=== PATIENT | male | born 1960 | race Caucasian/White ===

== ENCOUNTER 2017-11-25 10:38 | Day surgery (SDC) | payer MEDICAID, SELFPAY ==
--- NOTE | 2017-11-24 19:49 | PCM.HP.BLA ---
History and Physical Date of Admission: 11/25/17 HISTORY OF PRESENT ILLNESS 57 year old man presents for evaluation for a TBSE. He is concerned about a lesion on his right lateral canthal area that has increased in size over the last several months and has developed irregular borders and has become raised in configuration. Denies any fever. Denies any trauma. Denies any bleeding.Denies any recent infection. He has also noted a nasal polyp on his left lateral nasal alar rim that has been enlarging in size as well and is irritating. There has been no bleeding. He presents at this time for further evaluation and treatment. PAST MEDICAL HISTORY Lumbar back pain. Urinary retention due to radiculopathy from his lower back. Neurogenic bladder. Hypertension. Vitamin D deficiency. esophageal varices. Liver cirrhosis. GERD. Anemia. Rosacea. Rhinophyma. PAST SURGICAL HISTORY EGD. Esophageal variceal banding. MEDICATIONS Oxycodone. Diprosone. Mirapex. Ferrous sulfate. Protonix. Cardizem CD. Potassium chloride ER. Flomax. Rabia. Ventolin. Lactulose. Vitamin D. Flagyl topical gel. Xifaxan. Pramipexole. ALLERGIES NSAIDS. Tylenol. Aspirin. Lamisil. SOCIAL HISTORY Patient is a smoker. Patient does not drink alcohol. He has cirrhosis. FAMILY HISTORY Positive for skin cancer. Alcoholism -Father. Angina - Grandmother. Blood clots - Mother. Breast cancer - Grandmother, Sister. Diabetes - Grandmother. Hypertension - Father. REVIEW OF SYSTEMS General - Denies fever, fatigue, and weight loss. ENT - Denies nasal congestion and sore throat. Eyes - Denies glaucoma. Denies cataracts. Endocrine - Has cold intolerance. Skin - Has enlarging lesions right lateral canthal area and left lateral nasal alar rim. Has positive family history of skin cancer. Musculoskeletal - Has joint pain, joint stiffness, weakness of muscles and joints, back pain. Denies arthritis. Neuro - Denies headaches. Cardiovascular - Denies chest pain, shortness of breath with exertion. Psych - Denies anxiety and depression. Respiratory - Denies cough and shortness of breath. Patient is a smoker. Gastrointestinal - Denies nausea, vomiting, diarrhea, or constipation. Hematologic - Has anemia. Has bleeding and abnormal bruising. Genitourinary - Denies urinary frequency and hematuria. Has incontinence. PHYSICAL EXAMINATION General - Alert and oriented. HEENT - PERRL. EOMI. Throat is clear. On the right lateral canthal area is an erythematous nodular lesion that measures 2 x 1.5 cm. Has irregular borders. No ulceration. Lesion is nontender. On the left lateral nasal alar rim is a 3 mm nasal polyp. No ulceration. Lesion is nontender. Has rhinophyma. No evidence of infection. Neck - Supple and nontender. No cervical adenopathy. No suspicious lesions noted. Lungs - Clear to auscultation. Heart - Regular rate and rhythm. Abdomen - No suspicious lesions noted. Extremities - FROM. No suspicious lesions noted. No radial pulses. Neuro - CN II - XII grossly intact. ASSESSMENT 1. 2 cm lesion right lateral canthal area. 2. 3 mm nasal polyp left lateral nasal alar rim. 3. Family history of skin cancer. 4. Rhinophyma. 5. Smoker. PLAN Recommend excision of this lesion right lateral canthal area and send it to Pathology for analysis to rule out carcinoma. If carcinoma is present, then further excision will be done with skin grafting possible skin flap reconstruction. Will also excise the nasal polyp left lateral nasal alar rim and send it to Pathology for analysis to rule out carcinoma. If carcinoma is present then further excision will be done with skin graft or mucosal flap reconstruction. After healing has occurred, can then address the rhinophyma by surgical planing and CO2 laser ablation. Would send some of the tissue to Pathology for analysis to rule out carcinoma. Surgery will be done under local anesthesia and IV sedation on an outpatient basis. The rhinophyma surgery would be done under general anesthesia on an outpatient basis. Patient was informed of the risks and complications of the procedure including alternatives to surgery. These were discussed with him personally. He voices understanding and wishes to proceed. Some of the risks and complications were included in a form from the [place] [employer]. Encouraged the patient to stop smoking as it may have deleterious effects on wound healing.
--- NOTE | 2017-11-25 | POL_PTH ---
PATIENT: JOSÉ MCDOWELL LOC: [facility] [place] U#:[id number] AGE/SX: 57/M ROOM: RE11/25/[address]: Dr. Tejinder Guthrie MD : 1960 BED: DIS: 11/25/2017 SPEC #: [id number] RECD: 11/25/17 14:56 STATUS: MATT NINO #: [id number] JADA: 11/25/17 00:[address]: Tejinder Guthrie DEPT: SURGICAL PATHOLOGY RECD BY: Marissa Lawrence ENTERED: 11/25/17 15:37 SP TYPE: Polyp OTHR DR: Dr. Megan Mai, DO Tissues: A - POLYP B - Skin of eyelid, NOS Procedures: Surgery Specimen Level III Surgery Specimen Level IV Frozen (no charge) HEADER OPERATION: Excision, lesion, possible skin flap/skin graft, frozen section PRE-OP DIAGNOSIS: 2 cm lesion right lateral canthal area; 3 mm nasal polyp left lateral nasal alar rim TISSUE SUBMITTED: A ? Nasal polyp left lateral nose alar rim ? sent for FS 1443, B ? Right lateral canthal area lesion FROZEN SECTION DIAGNOSIS A. Nasal polyp left lateral nasal alar rim, biopsy: Negative for malignancy. Hyperkeratosis. :marissa 11/25/17 MICROSCOPIC DIAGNOSIS A. Nasal polyp, left lateral nose alar rim, biopsy: Verrucous keratosis. Negative for malignancy. B. Right lateral canthal area lesion, biopsy: Epidermal inclusion cysts (three pieces). PATRICK:marissa 11/27/17 MICROSCOPIC DESCRIPTION Slides are reviewed. GROSS DESCRIPTION A ? Received fresh for frozen section diagnosis labeled with the patient's name is a specimen designated nasal polyp left lateral nasal alar rim. The specimen consists of a piece of magallanes-white skin measuring 0.2 x 0.2 x 0.1 cm. The entire specimen is submitted for frozen section diagnosis in one cassette. / PATRICK:marissa 11/25/17 B - Received in fixative is one container labeled with the patient's name and designated right lateral canthal area lesion. The specimen consists of three irregular fragments of light magallanes skin with attached magallanes-white tissue. The smaller fragment measures 1 cm and the largest fragment measures 2 cm. All three fragments are inked with different inks, bisected and totally submitted in two cassettes. / AM:marissa 11/26/17 TC:5 CPT: 68510, 91208, 69429
[2017-11-25 11:01] VITALS: BP 149/73; PULSE 104; RESP 16; TEMP 36.7; O2SAT 95; BMI 26.6
[2017-11-25] MEDS: Mupirocin Ointment 22gm Tube 1 APPLIC (14:15)
[2017-11-25] MEDS: Clindamycin 900 MG/50 ML BAG 75 MG IV (14:21)
--- NOTE | 2017-11-25 15:35 | OP.PN_ITS ---
Immediate Post-Op Note Date of Procedure: 11/25/17 Primary Surgeon/Physician: Tejinder Guthrie e learning specialist: None Pre-Operative Diagnosis: 1. 2 cm lesion right lateral canthal area. 2. 3 mm nasal polyp vestibular area left lateral nasal alar rim. 3. Family history of skin cancer. 4. Rhinophyma. 5. Smoker. Post-Operative Diagnosis: 1. 2 cm cystic lesions cluster right lateral canthal area. 2. 3 mm nasal polyp vestibular area left lateral nasal alar rim. 3. Family history of skin cancer. 4. Rhinophyma. 5. Smoker. Surgery/Procedure Performed:: 1. Excision 2 cm cystic lesions cluster right lateral canthal area with FTSG reconstruction from the right neck (3 cm2). 2. Excision 3 mm nasal polyp vestibular area left lateral nasal alar rim. Description of Surgical Findings:: 57 year old man presents for evaluation for a TBSE. He is concerned about a lesion on his right lateral canthal area that has increased in size over the last several months and has developed irregular borders and has become raised in configuration. Denies any fever. Denies any trauma. Denies any bleeding.Denies any recent infection. He has also noted a nasal polyp on his left lateral nasal alar rim that has been enlarging in size as well and is irritating. There has been no bleeding. The nasal polyp vestibular area left lateral nasal alar rim was excised and sent to pathology as a frozen section. Frozen section showed the lesion was benign without evidence of malignancy. Today the patient underwent excision 2 cm cystic lesions cluster right lateral canthal area with FTSG reconstruction from the right neck (3 cm2) and excision 3 mm nasal polyp vestibular area left lateral nasal alar rim. Estimated Blood Loss: 5 ml. Specimen's removed: 1. Nasal polyp vestibular area left lateral nasal alar rim to Pathology as a frozen section. 2. Cystic lesions cluster right lateral canthal area to Pathology. Drains: None. Type of Anesthesia:: Local MAC - Xylocaine with epinephrine and IV sedation. - Admit VTE Documentation VTE Present on Admission: No VTE Mechan Device Prophylaxis: SCD's VTE Pharm Prophylaxis ordered?: No
[2017-11-25 15:38] VITALS: BP 132/78; BP 149/73; PULSE 98; RESP 16; TEMP 37.3; O2SAT 90
[2017-11-25 15:45] VITALS: BP 131/85; BP 149/73; PULSE 94; RESP 16; O2SAT 91
--- NOTE | 2017-11-25 15:45 | PCM.DC ---
You will use the following diet at home:: No restrictions Discharge Activity: May Not Drive, May Shower - from the neck down after 2 days. May shower in (days): 2 - try to keep skin graft rightr lateral canthal area as dry as possible. May resume sexual activity in: 10-14 days Ice area for (Minutes): 5 - for facial swelling. Weight Bearing Status: Weight bearing as tolerated Lifting Restrictions: 10 lbs. Keep extremity elevated above heart level: - - elevate head. Call your doctor if your incision/area has: Continuous Slow Oozing, Sudden Increased Bleeding, Increased Pain/ Swelling, Increased Redness, Foul Smelling Discharge, Swelling at the incision site Call your doctor if you observe: Fever of 101 or Higher, Coldness, Increased Pain, Shortness of breath, Chest pain, Increased palpitations (irregular heartbeat) Allergies/Adverse Reactions: Allergies acetaminophen [From Tylenol] Adverse Reaction (Intermediate, Verified 11/18/17 13:43) GI discomfort Medications to take at Discharge albuterol 90 mcg/actuation aerosol inhaler 90 mcg INHALATION PRN PRN 10/29/17 cholecalciferol (vitamin D3) 50,000 unit capsule 50,000 unit PO QWEEK 10/29/17 diltiazem CD 240 mg capsule,extended release 24 hr 240 mg PO QDAY 10/29/17 ferrous sulfate 325 mg (65 mg iron) tablet,delayed release 325 mg PO BID tab 10/29/17 fexofenadine 60 mg tablet 60 mg PO BID 10/29/17 lactulose 20 gram oral packet 20 g PO BID 10/29/17 metronidazole 0.75 % topical gel 1 applic TOPICAL Q12H 10/29/[address] 40 mg granules delayed-release for susp in packet 40 mg PO QDAY 10/29/17 potassium chloride ER 20 mEq tablet,extended release(part/cryst) 20 meq PO QDAY 10/29/17 pramipexole 0.125 mg tablet 0.125 mg PO QHS 10/29/17 rifaximin 550 mg tablet 550 mg PO BID 10/29/17 tamsulosin 0.4 mg capsule 0.4 mg PO QDAY 10/29/17 Clindamycin HCl [Cleocin] 300 mg PO TID 7 Days #21 cap 11/25/17 L. Acidophilus/Pectin, [place] [Acidophilus-Pectin [place]] 1 ea PO BID #20 tab 11/25/17 Oxycodone HCl/Acetaminophen [Percocet 5/325] 1 - 2 tab PO 4X/DAY PRN PRN 3 Days #20 tab 11/25/17 The following prescriptions were given: Oxycodone HCl/Acetaminophen [Percocet 5/325] 1 - 2 tab PO 4X/DAY PRN PRN 3 Days #20 tab PRN Reason: Pain L. Acidophilus/Pectin, [place] [Acidophilus-Pectin [place]] 1 ea PO BID #20 tab Clindamycin HCl [Cleocin] 300 mg PO TID 7 Days #21 cap Primary Care Physician: Megan Mai [Primary Care Provider] - Please Follow Up With: Tejinder Guthrie MD When: one week. call [phone] for appt. Proposed Discharge Date: 11/25/17
--- NOTE | 2017-11-25 15:49 | DCINST_ITS ---
You will use the following diet at home:: No restrictions Discharge Activity: May Not Drive, May Shower - from the neck down after 2 days. May shower in (days): 2 - try to keep skin graft rightr lateral canthal area as dry as possible. May resume sexual activity in: 10-14 days Ice area for (Minutes): 5 - for facial swelling. Weight Bearing Status: Weight bearing as tolerated Lifting Restrictions: 10 lbs. Keep extremity elevated above heart level: - - elevate head. Call your doctor if your incision/area has: Continuous Slow Oozing, Sudden Increased Bleeding, Increased Pain/ Swelling, Increased Redness, Foul Smelling Discharge, Swelling at the incision site Call your doctor if you observe: Fever of 101 or Higher, Coldness, Increased Pain, Shortness of breath, Chest pain, Increased palpitations (irregular heartbeat) Allergies/Adverse Reactions: Allergies acetaminophen [From Tylenol] Adverse Reaction (Intermediate, Verified 11/18/17 13:43) GI discomfort Medications to take at Discharge albuterol 90 mcg/actuation aerosol inhaler 90 mcg INHALATION PRN PRN 10/29/17 cholecalciferol (vitamin D3) 50,000 unit capsule 50,000 unit PO QWEEK 10/29/17 diltiazem CD 240 mg capsule,extended release 24 hr 240 mg PO QDAY 10/29/17 ferrous sulfate 325 mg (65 mg iron) tablet,delayed release 325 mg PO BID tab fexofenadine 60 mg tablet 60 mg PO BID 10/29/17 lactulose 20 gram oral packet 20 g PO BID 10/29/17 metronidazole 0.75 % topical gel 1 applic TOPICAL Q12H 10/29/[address] 40 mg granules delayed-release for susp in packet 40 mg PO QDAY 10/29/17 potassium chloride ER 20 mEq tablet,extended release(part/cryst) 20 meq PO QDAY 10/29/17 pramipexole 0.125 mg tablet 0.125 mg PO QHS 10/29/17 rifaximin 550 mg tablet 550 mg PO BID 10/29/17 tamsulosin 0.4 mg capsule 0.4 mg PO QDAY 10/29/17 Clindamycin HCl [Cleocin] 300 mg PO TID 7 Days #21 cap 11/25/17 L. Acidophilus/Pectin, [place] [Acidophilus-Pectin [place]] 1 ea PO BID #20 tab Oxycodone HCl/Acetaminophen [Percocet 5/325] 1 - 2 tab PO 4X/DAY PRN PRN 3 Days #20 tab 11/25/17 The following prescriptions were given: Oxycodone HCl/Acetaminophen [Percocet 5/325] 1 - 2 tab PO 4X/DAY PRN PRN 3 Days #20 tab PRN Reason: Pain L. Acidophilus/Pectin, [place] [Acidophilus-Pectin [place]] 1 ea PO BID #20 tab Clindamycin HCl [Cleocin] 300 mg PO TID 7 Days #21 cap Primary Care Physician: Megan Mai [Primary Care Provider] - Please Follow Up With: Tejinder Guthrie MD When: one week. call [phone] for appt. Proposed Discharge Date: 11/25/17
[2017-11-25 15:50] VITALS: BP 130/75; BP 149/73; PULSE 96; RESP 16; O2SAT 90
[2017-11-25 15:55] VITALS: BP 127/76; BP 149/73; PULSE 94; RESP 16; TEMP 37.5; O2SAT 92
[2017-11-25 16:07] VITALS: BP 149/73
--- NOTE | 2017-11-25 20:40 | PCM.OPRPT ---
Report of Operation Date of Procedure: 11/25/17 Pre-Operative Diagnosis: 1. 2 cm lesion right lateral canthal area. 2. 3 mm nasal polyp vestibular area left lateral nasal alar rim. 3. Family history of skin cancer. 4. Rhinophyma. 5. Smoker. Post-Operative Diagnosis: 1. 2 cm cystic lesions cluster right lateral canthal area. 2. 3 mm nasal polyp vestibular area left lateral nasal alar rim. 3. Family history of skin cancer. 4. Rhinophyma. 5. Smoker. Surgery/Procedure Performed:: 1. Excision 2 cm cystic lesions cluster right lateral canthal area with FTSG recosntruction from the right neck (3 cm2). 2. Excision 3 mm nasal polyp vestibular area left lateral nasal alar rim. Description of Surgical Findings:: 57 year old man presents for evaluation for a TBSE. He is concerned about a lesion on his right lateral canthal area that has increased in size over the last several months and has developed irregular borders and has become raised in configuration. Denies any fever. Denies any trauma. Denies any bleeding. Denies any recent infection. He has also noted a nasal polyp on his left lateral nasal alar rim that has been enlarging in size as well and is irritating. There has been no bleeding. Patient was informed of the risks and complications of the procedure including alternatives to surgery. These were discussed with him personally. He voices understanding and wishes to proceed. Some of the risks and complications were included in a form from the [place] [employer]. Encouraged the patient to stop smoking as it may have deleterious effects on wound healing. licensed mental health professional: None Type of Anesthesia:: Local MAC - Xylocaine with epinephrine and IV sedation. Specimen's removed: 1. Nasal polyp vestibular area left lateral nasal alar rim to Pathology as a frozen section. 2. Cystic lesions cluster right lateral canthal area to Pathology. Drains: None. Estimated Blood Loss (mL): 5 ml. Description of Procedure: Patient was taken to OR in supine position and was given IV sedation. His face and neck were prepped and draped in the usual fashion. SCD's were placed for DVT prophylaxis. Perioperative antibiotics were given intravenously. Using xylocaine with epinephrine, I infiltrated the lesion right lateral canthal area and nasal polyp vestibular area left lateral nasal alar rim. After waiting 5 minutes for the anesthetic to take effect, I started to excise the lesion on the right lateral canthal area as an intradermal excision since there was concern it was clinically consistent with a carcinoma. However during the beginning of the intradermal excision, it was clear this was a cystic lesions cluster so no frozen section was done. The cystic lesions cluster was then excised in a circular fashion into the subcutaneous tissue. The overlying skin was adherent to the cystic lesions cluster so it was excised as well. The cystic lesions cluster was sent to Pathology for analysis to rule out carcinoma. Hemostasis obtained with electrocautery. The size of the defect for the skin graft was 2 x 1.5 cm or 3 cm2. I infiltrated an area on the right neck for the skin graft. After waiting 5 minutes for the anesthetic to take effect, I made an elliptical excision in the right neck down into the subcutaneous tissue. The subcutaneous tissue was removed from the undersurface of the dermis thus fashioning a full thickness skin graft. The skin graft was placed in saline. I then excised the nasal polyp from the vestibular area left lateral nasal alar rim as a full thickness excision and sent the lesion to Pathology for analysis to rule out carcinoma. Frozen section showed the lesion was benign without evidence of malignancy. Hemostasis of the base of the wound was obtained with electrocautery. Antibiotic ointment was placed on the nasal wound. The full thickness skin graft was then placed in the right lateral canthal wound and secured to the skin edge with 5-0 Chromic simple interrupted sutures. 5-0 Chromic sutures were placed for central quilting stabilization. Antibiotic ointment was applied to the skin graft followed by xeroform gauze and a cotton ball soaked in saline and secured to the skin graft with 5-0 Nylon tie over stent suture dressing. Patient tolerated the procedure well and was sent to PACU in satisfactory condition. He will be sent home on antibiotics and pain medication. He will keep his head elevated during the initial postop period. He will followup in the office in a week for takedown of the skin graft dressing and for discussion of the pathology report and for removal of the donor incision sutures. Grafts/Implants Used: None. - Complications None. - Admit VTE Documentation VTE Present on Admission: No VTE Mechan Device Prophylaxis: SCD's VTE Pharm Prophylaxis ordered?: No
== END 2017-11-25 16:37 | disposition home or self-care (01) ==
LOC: SDC 10:39 → AC 10:40
PROVIDERS: Family Provider Family Medicine; PCP Family Medicine; Visit Provider Surgery
PROC: (CPT 11442; principal; 2017-11-25 12:05)
DX: H11.441 Conjunctival cysts, right eye (principal); J33.8 Other polyp of sinus; L98.8 Other specified disorders of the skin and subcutaneous tissue; F17.200 Nicotine dependence, unspecified, uncomplicated; L71.1 Rhinophyma; Z80.8 Family history of malignant neoplasm of other organs or systems; E55.9 Vitamin D deficiency, unspecified; N31.9 Neuromuscular dysfunction of bladder, unspecified; I10 Essential (primary) hypertension; J44.9 Chronic obstructive pulmonary disease, unspecified; G25.81 Restless legs syndrome; K74.60 Unspecified cirrhosis of liver; K21.9 Gastro-esophageal reflux disease without esophagitis; D64.9 Anemia, unspecified; Z79.899 Other long term (current) drug therapy; M54.16 Radiculopathy, lumbar region
CPT/HCPCS: 00300; 11442; 15260; 30115; 88304; 88305; J7120; J2405

== ENCOUNTER → 2017-12-18 18:12 | Outpatient (CLI) | payer MEDICAID, SELFPAY | PROVIDERS: Family Provider Family Medicine; PCP Family Medicine; Visit Provider Surgery | DX: T86.821 Skin graft (allograft) (autograft) failure (principal); D49.2 Neoplasm of unspecified behavior of bone, soft tissue, and skin; F17.200 Nicotine dependence, unspecified, uncomplicated; Z80.8 Family history of malignant neoplasm of other organs or systems | CPT/HCPCS: 87070; 87075; 87205 ==

== ENCOUNTER → 2019-05-21 10:42 | Outpatient (CLI) | payer MEDICARE, SELFPAY ==
--- NOTE | 2019-04-28 23:08 | PCM.HP.BLA ---
History and Physical Date of Admission: 04/29/19 HISTORY OF PRESENT ILLNESS 58 year old man presents with longstanding rhinophyma that has enlarged in size over the last several months. He has discomfort when he bumps his nose. Occasional bleeding can occur. He denies any fever. He denies any recent infection. He denies any breathing problems at the present time. He presents at this time for further evaluation and treatment. PAST MEDICAL HISTORY Anemia Back problem Gastroesophageal reflux disease without esophagitis History of blood transfusion Hypokalemia Leukopenia Multiple allergies Neurogenic bladder Panlobular emphysema Rosacea Secondary esophageal varices with bleeding Vitamin D deficiency Hypertension Verrucous keratosis left lateral nose alar rim Epidermal inclusion cysts right lateral canthal area PAST SURGICAL HISTORY EGD Esophageal variceal banding Excision 2 cm cystic lesions cluster right lateral canthal area with FTSG reconstruction from the right neck (3 cm2) and excision 3 mm nasal polyp vestibular area left lateral nasal alar rim - 11/25/18 ALLERGIES acetaminophen [From Tylenol] MEDICATIONS albuterol/actuation aerosol inhaler cholecalciferol (vitamin D3) diltiazem CD ferrous sulfate fexofenadine lactulose metronidazole 0.75 % topical gel pantoprazole DR potassium chloride ER pramipexole rifaximin tamsulosin FAMILY HISTORY Father - Alcoholism, Hypertension Grandmother - Angina at rest, Breast cancer, Diabetes Mother - Bleeding disorder Sister - Breast cancer SOCIAL HISTORY Smoking Status: Current every day smoker REVIEW OF SYSTEMS General - Denies fever, fatigue, and weight loss. ENT - Denies nasal congestion and sore throat. Eyes - Denies glaucoma. Denies cataracts. Endocrine - Has cold intolerance. Skin - Has rhinophyma. Has positive family history of skin cancer. Musculoskeletal - Has joint pain, joint stiffness, weakness of muscles and joints, back pain. Denies arthritis. Neuro - Denies headaches. Cardiovascular - Denies chest pain, shortness of breath with exertion. Psych - Denies anxiety and depression. Respiratory - Denies cough and shortness of breath. Patient is a smoker. Gastrointestinal - Denies nausea, vomiting, diarrhea, or constipation. Hematologic - Has anemia. Has bleeding and abnormal bruising. Genitourinary - Denies urinary frequency and hematuria. Has incontinence. PHYSICAL EXAMINATION General - Alert and oriented. HEENT - PERRL. EOMI. Throat is clear. Has rhinophyma. No evidence of infection. Involves mostly the nasal dorsum extending to the tip and columella. There is more mild rhinophyma laterally on the nasal ala. Comes close to the alar margin. There are multiple nodularities. No evidence of infection at this time. No ulceration. His nose is nontender. No other suspicious lesions noted. Neck - Supple and nontender. No cervical adenopathy. No suspicious lesions noted. No suspicious lesions noted. Lungs - Clear to auscultation. Heart - Regular rate and rhythm. Abdomen - No suspicious lesions noted. Extremities - FROM. No suspicious lesions noted. No radial pulses. No suspicious lesions noted. Neuro - CN II - XII grossly intact. ASSESSMENT 1. Rhinophyma. 2. Family history of skin cancer. 3. Smoker. PLAN Recommend excision of his rhinophyma with surgical planing the skin of his nose. Sometimes rhinophyma can hide a focus of skin cancer, so it will be sent to Pathology for analysis to rule out carcinoma. If carcinoma is present, then full thickness excision would be needed with skin graft reconstruction. If there are areas on his nose that necessitate full thickness surgical planing, then skin grafting may be necessary depending on the size of the full thickness defect. If it is small, local wound care will heal the area. Also at the time of surgery, CO2 laser ablation will be needed to help with hemostasis and to help with taking care of the deeper areas of rhinophyma in an attempt to minimize full thickness wounds. Postop will apply Xeroform gauze followed by antibiotic ointment. Initial dressing changes would be done in the office because of the risk of bleeding with the dressing changes. Once epithelialization occurs, then the dressing changes can be done at home without Xeroform gauze and just with antibiotic ointment followed by skin lotion such as Aquaphor until fully healed. Any scar contractures that form during the healing process, further evaluation can be done in the future for excision with skin grafting of those areas. Besides the risk of obscuring a skin cancer, with rhinophyma there is increased risk of bleeding and ulceration and infection. So excision of rhinophyma with surgical planing and CO2 laser ablation is warranted to minimize these risks. Surgery will be done under general anesthesia with a surgical observation overnight stay in the hospital. Patient was informed of the risks and complications of the procedure including alternatives to surgery. These were discussed with him personally. He voices understanding and wishes to proceed. Some of the risks and complications were included in a form from the [place] [employer]. Encouraged the patient to stop smoking as it may have deleterious effects on wound healing.
--- NOTE | 2019-05-11 11:27 | RAD_ITS ---
STUDY: X-RAY CHEST REASON FOR EXAM: Male, 58 years old. Shortness of breath/dyspnea. TECHNIQUE: PA and lateral views of the chest. COMPARISON: None. FINDINGS: Scattered calcified granulomas. Mild increased markings at the lung bases slightly more prominent on the left side suggestive of scarring. There is no demonstrated pleural abnormality. Normal size heart. Normal mediastinum and davonte. Normal visualized pulmonary arteries. Normal visualized aortic arch and descending thoracic aorta. There are degenerative changes of the visualized thoracic spine. Normal visualized ribs, clavicles, and shoulders. There is no demonstrated abnormality of the visualized soft tissue structures of the upper abdomen. RAD/Chest PA and Lateral IMPRESSION: Findings suggest mild degree of bibasilar scarring. Electronically Signed: Hiren Magdaleno, at 12:23 EDT , Service support ,
[2019-05-11 11:30] VITALS: BP 134/68; PULSE 102; RESP 18; TEMP 37.1; O2SAT 89; BMI 25.4
[2019-05-11 11:46] LABS: Allen Test POS; Base Excess -5 mmol/L (-2 to +2); Bicarbonate 19.3 mmol/L (22-26); Blood Gas Specimen Type ART; O2 Delivery Device Room Air; PO2 57 mmHG (75-100); SITE R Brachial; SO2 90 % (95-99); Time Given 1138; Total Carbon Dioxide 20 mmol/L; pCO2 30.6 mmHg (35-45); pH 7.41 (7.35-7.45)
== END ==
LOC: SDC 05-11 11:00 → AC 05-11 11:02 → SDC 10:43
PROVIDERS: Family Provider Family Medicine; PCP Family Medicine; Referring Provider Surgery; Visit Provider Surgery
DX: L71.1 Rhinophyma (principal); R06.02 Shortness of breath; F17.200 Nicotine dependence, unspecified, uncomplicated; Z53.9 Procedure and treatment not carried out, unspecified reason
CPT/HCPCS: 36600; 71046; 82803; J7120

== ENCOUNTER → 2019-10-25 14:55 | Outpatient (CLI) | payer MEDICARE, SELFPAY ==
[2019-05-11 11:30] VITALS: BMI 25.4
--- NOTE | 2019-10-25 15:01 | RAD_ITS ---
STUDY: X-RAY - CERVICAL SPINE REASON FOR EXAM: Male, 58 years old. Neck pain. TECHNIQUE: 3 view(s) of the cervical spine were obtained. COMPARISON: None FINDINGS: Normal anterior atlantoaxial articulation. Normal odontoid process. Normal cervical lordosis. 4 mm of anterolisthesis of C4 on C5 from facet degeneration. Normal vertebral bodies and endplates. Intervertebral disc space narrowing at C3-4, C4-5, C5-6, C6-7 and C7-T1 with osteophyte formation most marked at C5-6. Diffuse uncovertebral and facet sclerosis. The soft tissue structures are unremarkable. RAD/Cerv Spine 2 or 3 Views IMPRESSION: Moderate lower cervical spondylosis as described. Electronically Signed: Chris Higgins MD at 14:37 EST , Service support ,
--- NOTE | 2019-10-25 15:01 | RAD_ITS ---
STUDY: X-RAY - RIGHT SHOULDER REASON FOR EXAM: Male, 58 years old. Shoulder and neck pain. TECHNIQUE: 4 view(s) of the shoulder. COMPARISON: None. FINDINGS: Normal glenohumeral articulation. Minimal AC joint arthrosis. Normal acromion. Normal humeral head and visualized proximal humerus. The soft tissue structures are unremarkable. Normal visualized pulmonary apex. RAD/Shoulder min 2 Views IMPRESSION: Minimal AC joint arthrosis. Electronically Signed: Chris Higgins MD at 14:37 EST , Service support ,
== END ==
PROVIDERS: PCP Family Medicine; Referring Provider Anesthesiology Pain Medicine; Visit Provider Anesthesiology Pain Medicine
DX: M25.511 Pain in right shoulder (principal); M54.2 Cervicalgia
CPT/HCPCS: 72040; 73030

== ENCOUNTER → 2020-04-12 12:43 | Outpatient (CLI) | payer MEDICARE, SELFPAY ==
[2019-05-11 11:30] VITALS: BMI 25.4
[2020-04-12 13:36] LABS: Amphetamine Urine VISTA NEGATIVE (<1000 ng/mL); Barbiturate Urine VISTA NEGATIVE (< 200 ng/mL); Benzodiazepine Urine VISTA NEGATIVE (< 200 ng/mL); Cocaine Urine VISTA NEGATIVE (< 300 ng/mL); Ecstacy Urine VISTA NEGATIVE (< 500 ng/mL); Methadone Urine VISTA NEGATIVE (< 300 ng/mL); PCP Urine VISTA NEGATIVE (< 25 ng/mL); THC Urine VISTA NEGATIVE (< 50 ng/mL); Vista UDS pH Range 6
== END ==
PROVIDERS: PCP Family Medicine; Referring Provider Anesthesiology Pain Medicine; Visit Provider Anesthesiology Pain Medicine
DX: F11.20 Opioid dependence, uncomplicated (principal)
CPT/HCPCS: 80307

== ENCOUNTER 2020-10-09 13:39 | Emergency (ER) | payer MEDICARE, SELFPAY ==
[2019-05-11 11:30] VITALS: BMI 25.4
[2020-10-09 13:39] VITALS: BP 159/79; PULSE 101; RESP 19; TEMP 36.7; O2SAT 92; BMI 23.8
--- NOTE | 2020-10-09 14:00 | ED.VIS.GEN ---
History of Present Illness Chief Complaint: Fall Informant: Patient Narrative: [id number] male presenting for evaluation after rapid response was called on the medical floor due to the patient falling 2 times. He states that these were purely mechanical he states he has a bad leg. Patient states that he does not normally ambulate that far and this is why he fell. He denies hitting his head or loss of consciousness. He denies cough, cold, fever, chills, shortness of breath, chest pain. - Past Medical History (1) Smoker Status: Chronic Past Medical History - Allergies and Home Meds Allergies/Adverse Reactions: Allergies acetaminophen [From Tylenol] Allergy (Intermediate, Verified 05/11/19 11:27) Hives Primary Care Physician: Megan Mai DO [Primary Care Provider] - Prior records reviewed: Yes Past Medical History: - - Hypertension Surgical History: noncontributory Lives: Spouse/ Significant Other Smoking Status: Current every day smoker Alcohol: None Drugs: None Review of Systems General: Denies: Chills, Fever, Sweats Eyes: Denies: Visual changes - bilaterally, Diplopia ENT: Denies: Rhinorrhea, Sore throat Cardiovascular: Denies: Chest pain, Palpitations Respiratory: Denies: Dyspnea, Cough, Dyspnea on exertion Gastrointestinal: Denies: Abdominal pain, Nausea, Vomiting, Diarrhea, Melena, Hematochezia Genitourinary: Denies: Dysuria, Hematuria, Frequency Musculoskeletal: Denies: Back pain, Extremity Pain Skin: Denies: Rash, Wounds Neurological: Denies: Headache, Weakness, Numbness Psych: Denies: Depression, Anxiety, Suicidal thoughts, Suicidal ideations, -, - Physical Exam Vital Signs/Narrative: Vital Signs Temp Pulse Resp BP Pulse Ox 10/09/20 13:39 98.1 F 101 H 19 H 159/79 H 92 Inital Vital Signs reviewed: Yes General: Well nourished Head: Atraumatic Eyes: Perrl, EOMI ENT: Moist mucous membranes, No rhinorrhea Cardiovascular: Regular rate, Regular rhythm Respiratory: No distress, CTA bilaterally Extremities: Nontender, No edema Skin: Normal color, No rash Neurological: Alert, Oriented x3, Cranial nerves II-XII grossly intact Psychological: Normal affect, Normal Mood Diagnostic/Tx/Re-eval - Medical Decision Making 5-year-old male presenting for evaluation after wrap response was called when he fell on the medical floor twice. Patient states he feels fine. He states his falls were purely mechanical. He does not want any lab work, imaging, EKG. It was noticed on his vital signs that his oxygen was low at 88 to 91%. Patient does not feel short of breath. He states that he was told about a year ago that his oxygen was on the lower side. Patient states that he wants to be discharged so that he can go up and see his as he still never got to see her. Patient does appear nontoxic appearing. Otherwise his vitals are stable. He is alert and oriented. Feel he has capacity to make this decision. I counseled him that if he has any new or changing symptoms or just wants to come back for evaluation he may. Patient amenable to this plan. Impression: 1. Mechanical fall 2. Hypoxia ED Disposition - Plan for ED Patient: Disposition: Home or Assisted Living Instructions: ED Mechanical Fall Referrals: Megan Mai DO [Primary Care Provider] -
[2020-10-09 14:15] LABS: Bedside Glucose 101 mg/dL (70-110)
--- NOTE | 2020-10-09 14:32 | ED.RN ---
PT STATES HE HAS HOLE IN RIGHT SHOE, I TRIPPED AND FELL BECAUSE OF THAT HOLE.
[2020-10-09 14:46] VITALS: BP 127/71; PULSE 73; RESP 17; O2SAT 93
== END 2020-10-09 14:47 | disposition home or self-care (01) ==
LOC: ED 14:32
PROVIDERS: Emergency Provider Student in an Organized Health Care Education/Training Program; PCP Family Medicine
DX: Z04.3 Encounter for examination and observation following other accident (principal); R09.02 Hypoxemia; I10 Essential (primary) hypertension; F17.200 Nicotine dependence, unspecified, uncomplicated; Z79.899 Other long term (current) drug therapy
CPT/HCPCS: 82962; 99282

== ENCOUNTER → 2020-10-10 13:02 | Outpatient (CLI) | payer MEDICARE, SELFPAY ==
[2020-10-09 13:39] VITALS: BMI 23.8
== END ==
PROVIDERS: PCP Family Medicine; Referring Provider Anesthesiology Pain Medicine; Visit Provider Anesthesiology Pain Medicine
DX: F11.20 Opioid dependence, uncomplicated (principal)
CPT/HCPCS: 36415

== ENCOUNTER → 2021-05-07 12:11 | Outpatient (CLI) | payer MEDICARE, SELFPAY ==
[2021-05-07 21:46] LABS: Amphetamine Urine VISTA NEGATIVE (<1000 ng/mL); Barbiturate Urine VISTA NEGATIVE (< 200 ng/mL); Benzodiazepine Urine VISTA NEGATIVE (< 200 ng/mL); Cocaine Urine VISTA NEGATIVE (< 300 ng/mL); Ecstacy Urine VISTA NEGATIVE (< 500 ng/mL); Methadone Urine VISTA NEGATIVE (< 300 ng/mL); PCP Urine VISTA NEGATIVE (< 25 ng/mL); THC Urine VISTA NEGATIVE (< 50 ng/mL); Vista UDS pH Range 6
== END ==
PROVIDERS: PCP Family Medicine; Referring Provider Anesthesiology Pain Medicine; Visit Provider Anesthesiology Pain Medicine
DX: F11.20 Opioid dependence, uncomplicated (principal)
CPT/HCPCS: 80307

== ENCOUNTER 2022-03-23 05:22 | Inpatient (IN) | payer MEDICARE, SELFPAY ==
[2022-03-23] VITALS (12 sets, daily range): BP systolic 105–140; BP diastolic 50–95; PULSE 89–130; RESP 16–18; TEMP 36.4–39.4; O2SAT 90–95; BMI 24.7
--- NOTE | 2022-03-23 | HIP_PTH ---
PATIENT: JOSÉ MCDOWELL LOC: [facility] U#:[id number] AGE/SX: 61/M ROOM: [facility] RE03/23/[address]: Dr. Marlene Mendez MD : 1960 BED: 1 DIS: 03/29/2022 SPEC #: [id number] RECD: 03/25/22 06:41 STATUS: MATT REQ #: [id number] JADA: 03/23/22 00:[address]: Mauro Hilario DEPT: SURGICAL PATHOLOGY RECD BY: Santiago Merlos ENTERED: 03/25/22 08:51 SP TYPE: TOTAL HIP OTHR DR: MD Dr. Abisai Mathews MD Dr. Derek Brown, DO Dr. Mauro Hilario, DO Dr. Carli Connelly, DO Dr. Megan Mai, DO MD Dalila Reed, INSURANCE CLAIMS PROCESSOR-C Tissues: Hip, NOS Procedures: Decalcification bone/plaque Surgery Specimen Level IV Comments: @ Ordering doctor for DEC edited from to DR.JBORRU Bruna DOWELL at 03/25/22 1446 @ Ordering doctor for SUIV edited from to DR.JBORRU Bruna DOWELL at 03/25/22 1446 @ Submitting doctor edited from to DR.JBORRU Bruna DOWELL at 03/25/22 1446 HEADER OPERATION: Right hip hemiarthroplasty PRE-OP DIAGNOSIS: Right femoral neck fracture TISSUE SUBMITTED: Right femoral head MICROSCOPIC DIAGNOSIS Right femoral head, fracture: Consistent with organizing fracture callous. Rare benign lymphoid aggregates. See comment. AM:marissa 03/28/2022 COMMENT Two lymphoid aggregates consisting of polytypic lymphocytes are identified. Immunohistochemistry ([id number]) supports the above diagnosis. MICROSCOPIC DESCRIPTION Slides are reviewed. GROSS DESCRIPTION Received in fixative is one container labeled with the patient's name and designated right femoral head. The specimen consists of a femoral head measuring 4.5 x 4.5 x 4.5 cm. The articular surface is smooth. Resection margin is irregular. Also present at the top of the femoral head is a small piece of soft tissue measuring 1.5 x 1.5 x 0.2 cm. Also present in the container are multiple detached pieces of bone measuring in aggregate 6.5 x 6 x 2 cm. Foundry Patternmaker sections are submitted in three cassettes as follows: 1 - soft tissue, entirely submitted, 2 - detached pieces of bone, 3 - femoral head. Cassettes 2 & 3 are submitted after decalcification. / PATRICK:marissa 03/25/2022 TC:5 CPT: 36807, 19531
--- NOTE | 2022-03-23 | IMM_PTH ---
PATIENT: JOSÉ MCDOWELL LOC: [facility] U#:[id number] AGE/SX: 61/M ROOM: [facility] RE03/23/[address]: Dr. Marlene Mendez MD : 1960 BED: 1 DIS: 03/29/2022 SPEC #: [id number] RECD: 03/28/22 11:43 STATUS: SOUT REQ #: [id number] JADA: 03/23/22 00:[address]: Mauro Hilario DEPT: IMMUNOHISTOCHEMISTRY RECD BY: Marissa Lawrence ENTERED: 03/28/22 11:45 SP TYPE: IMMUNO OTHR DR: MD Dr. Abisai Mathews MD Dr. Derek Brown, DO Dr. Mauro Hilario, DO Dr. Carli Connelly, DO Dr. Megan Mai, DO MD Dalila Reed, HOT METAL CAR OPERATOR-C Tissues: Right femoral region Procedures: BCL-2 (add) CD138 (add) CD20 (add) CD43 (add) CD45 (add) CD5 (add) CD79A (add) KI-67 (add) CD3 (initial) Comments: @ Ordering doctor for CD3 edited from to @ by RGOOD at 03/28/22 1154 @ Ordering doctor for BCL2. edited from to DR.JBORRU Mcfarland by RGOOD at 03/28/22 1154 @ Ordering doctor for CD138. edited from to DR.JBORRU Mcfarland by YULIAOD at 03/28/22 1154 @ Ordering doctor for CD20. edited from to DR.JBORRU Mcfarland by YULIAOD at 03/28/22 1154 @ Ordering doctor for CD43. edited from to DR.JBORRU Mcfarland by RGOOD at 03/28/22 1154 @ Ordering doctor for CD45. edited from to DR.JBORRU Mcfarland by RGOOD at 03/28/22 1154 @ Ordering doctor for CD5. edited from to DR.JBORRU Mcfarland by RGOOD at 03/28/22 1154 @ Ordering doctor for CD79A. edited from to DR.JBORRU Mcfarland by RGOOD at 03/28/22 1154 @ Ordering doctor for KI67. edited from to DR.JBORRU Mcfarland by RGOOD at 03/28/22 1154 @ Submitting doctor edited from to DR.JBORRU Mcfarland by RGOOD at 03/28/22 1154 PHYSICIAN & [place] [id number] SPECIMEN INFORMATION: Tissue Source: Right femoral head Clinical Info: Right femoral neck fracture Specimen Number: [id number] #2 CPT code: 09303, 43659 x8 METHODOLOGY: Deparaffinized sections of prefer/formalin-fixed tissue or PAP/DQ stained slides are incubated with monoclonal/polyclonal antibodies/oligonucleotide probes. Localization is made via biotin free immunoperoxidase method. Appropriate controls are performed and reacted as expected. Results on target cell population are indicated in the following table: RESULTS: ANTIBODY / CLONE RESULT Block 2 CD3 (PS1) positive CD5 (SP10) positive CD20 (L26) positive CD43 (L60) positive CD45 (RP2/18) positive CD79a (11E3) positive CD138 (B-A38) negative BCL-2 (bcl-2/100/D5) negative Ki-67 (30-9) negative These tests were developed and their performance characteristics determined by [facility]. They may not have been cleared or approved by the U.S. Food and Drug Administration. The FDA has determined that such clearance or approval is not necessary. The above immunohistochemical/dualISH markers are ordered and reviewed by the Pathologist. INTERPRETATION: Right femoral head fracture: Polytypic lymphoid aggregates. AM:marissa 04/01/2022
--- NOTE | 2022-03-23 04:45 | EKG12_ITS ---
Test Reason : AM EKG Blood Pressure : / mmHG Vent. Rate : 103 BPM Atrial Rate : 103 BPM P-R Int : 160 ms QRS Dur : 082 ms QT Int : 344 ms P-R-T Axes : 050 058 048 degrees QTc Int : 450 ms Sinus tachycardia Septal infarct , age undetermined Abnormal ECG No previous ECGs available Confirmed by ML MATTHEWS, KARY ([id number]), legal editor SAVANAH HOWARD ([id number]) on 03/26/2022 8:52:28 AM Referred By: KRYSTYNA Confirmed By:KARY BULL MD
--- NOTE | 2022-03-23 05:29 | PCM.HP.STD ---
[facility] - General General Date of Admission: 03/23/22 Date of Service: 03/23/22 Chief Complaint: Right hip pain HPI Narrative JOSÉ MCDOWELL, is a 61 M who presented to [facility] [facility] on 03/22/2022 complaining of right leg pain in the mid thigh and right hip. The patient reported he has foot drop on his right lower extremity related to lumbar stenosis and spine injury and that he tripped over a rug while going to the bathroom. He landed on his right side and had immediate pain in his right thigh and hip region. This happened early that morning and he tried to tough it out throughout the day however symptoms were persistent and his hip pain worsened. He states he tried to drink 2 beers to deaden the pain but it did not work so he decided to present to the emergency department. He has no other associated symptoms at this time. The patient has a known history of liver cirrhosis and has history of GI bleeds from esophageal banding. He receives most of his care for this over at [facility]. His last EGD was in 2019 at which time showed no bleeding and no noted esophageal varices. Vital signs on presentation to [facility] showed a temperature of 98.5, blood pressure 124/71, heart rate of 94, respiration rate of 14, and an oxygen saturation of 97% on room air. His CBC showed a chronic leukopenia and thrombocytopenia with stable counts. His BMP showed chronic hyponatremia but was otherwise unremarkable. His INR was 1.1. His COVID was negative. He requested transfer to [place] and the case was discussed with Dr. Hilario from orthopedic surgery and he indicated he was willing to be on consult. [facility] Medical History Alcohol abuse Anemia Anemia Back pain due to injury Back problem Bleeding tendency Chronic indwelling Kim catheter Chronic pain Cirrhosis Epidermal inclusion cyst Failed skin graft Family history of skin cancer Gastroesophageal reflux disease without esophagitis GI bleed History of blood transfusion Hypertension Hypokalemia Left nasal polyps Leukopenia Multiple allergies Neoplasm of skin of eyelid Neurogenic bladder Panlobular emphysema Restless legs Rhinophyma Rosacea Secondary esophageal varices with bleeding Smoker Smoker Thrombocytopenia Verrucous keratosis Vitamin D deficiency Home Medications albuterol 90 mcg/actuation aerosol inhaler 90 mcg inhalation Q4H PRN PRN sob 10/29/17 [History Last Taken 11/25/17 08:00] diltiazem HCl 240 mg capsule,extended release 24 hr 240 mg PO QHS BLOOD PRESSURE 10/29/17 [History Last Taken 03/21/22] ferrous sulfate 325 mg (65 mg iron) tablet,delayed release 325 mg PO QHS REPLACMENT 10/29/17 [History Last Taken Unknown] metronidazole 0.75 % topical gel 1 applic topical Q12H PSORIASIS 10/29/17 [History Last Taken Unknown] pantoprazole 40 mg granules delayed-release for susp in packet 40 mg PO QDAY HEARTBURN 10/29/17 [History Last Taken 11/25/17 08:00] potassium chloride 20 mEq tablet,extended release(part/cryst) (Klor-Con M) 20 meq PO QDAY 10/29/17 [History Last Taken Unknown] pramipexole 0.125 mg tablet 0.125 mg PO QHS RESTLESS LEGS 10/29/17 [History Last Taken Unknown] carbidopa 10 mg-levodopa 100 mg disintegrating tablet 2 ea PO DAILY restless legs 04/22/19 [History Last Taken Unknown] cholecalciferol (vitamin D3) 25 mcg (1,000 unit) tablet 1,000 unit PO QHS REPLACEMENT 04/22/19 [History Last Taken 03/21/22] lisinopril 5 mg tablet 5 mg PO QHS BLOOD PRESSURE 04/22/19 [History Last Taken 03/21/22] gabapentin 300 mg capsule 300 cap PO BID CHRONIC PAIN 03/23/22 [History Last Taken Unknown] levocetirizine 5 mg tablet (Xyzal) 5 mg PO DAILY ALLERGIES 03/23/22 [History Last Taken Unknown] oxycodone myristate 9 mg capsule sprinkle extended release 12 hr(DON'T CRUSH) (Xtampza ER) 9 mg PO BID CHRONIC RT LEG PAIN 03/23/22 [History Last Taken Unknown] Allergy/AdvReac Type Severity Reaction Status Date / Time acetaminophen [From Tylenol] Allergy Intermediate Hives Verified 05/11/19 11:27 Family History Father Alcoholism Hypertension Grandmother Angina at rest Breast cancer Diabetes Mother Bleeding disorder Sister Breast cancer Social History (Updated 03/23/22 @ 05:[address] Carli Connelly DO) household members: spouse and children housing: house Smoking Status: Current every day smoker tobacco type: cigarettes Smoking packs per day: 0.5 Smoking cigarettes per day: 10.0 alcohol intake: current alcohol intake frequency: 0-2 drinks per day details: Drinks approximately 6 beers a week substance use type: does not use do you feel safe at home: Yes ROS Constitutional Constitutional: Denies anorexia, change in weight, chills, fatigue, fever(s), malaise, night sweats, weakness or other Eyes Eyes: Denies blurry vision, change in eye color, change in vision, discharge from eye(s), double vision, erythema, eye pain, loss of vision or other ENT HEENT: Denies abnormal hearing, dysphagia, ear pain, epistaxis, headache(s), hearing loss, nasal congestion, nasal discharge, post nasal drip, sinus pressure, sore throat or other Cardiovascular Cardiovascular: Denies chest pain, claudication, dyspnea on exertion, edema, lightheadedness, orthopnea, palpitations, paroxysmal nocturnal dyspnea, rapid heart rate, syncope or other Respiratory/Chest Respiratory/Chest: Denies cough, dyspnea, excessive phlegm production, hemoptysis, productive cough, shortness of breath at rest, shortness of breath with exertion, wheezing or other Gastrointestinal Gastrointestinal: Denies abdominal pain, coffee ground emesis, constipation, diarrhea, dyspepsia, hematemesis, hematochezia, loose stools, melena, nausea, vomiting or other Genitourinary Genitourinary: Denies burning urination, difficulty urinating, dysuria, hematuria, nocturia, urinary frequency, urinary hesitancy, urinary incontinence, urinary urgency or other Musculoskeletal Musculoskeletal: Reports joint pain, joint stiffness and joint swelling; Denies arthralgias, back pain, myalgias, neck pain or other Neurologic Neurologic: Reports abnormal gait, focal weakness, numbness, paresthesias and other Details: Neurogenic bladder requiring straight cath ; Denies abnormal speech, confusion, disequilibrium, dizziness, headache(s), seizure-like activity, seizures, syncope, tingling or tremor(s) Psychiatric Psychiatric: Denies anxiety, depression, homicidal ideation, suicidal ideation or other Endocrine Endocrinology: Denies change in body appearance, cold intolerance, excessive sweating, heat intolerance, polydipsia, polyuria or other Hematologic/Lymphatic Hematologic/Lymphatic: Reports other Details: Thrombocytopenia/leukopenia ; Denies anemia, easy bleeding, easy bruising or lymphadenopathy Allergic/Immunologic Allergic/Immunologic: Denies rhinitis, hives, eczemia, asthma or other Vital Signs Vital Signs Vital Signs: 03/23/22 04:06 03/23/22 04:30 Temperature 98.1 F Temperature Source Oral Pulse Rate 104 H Respiratory Rate 16 Blood Pressure 140/73 H Blood Pressure Mean 95 Blood Pressure Source Monitor Blood Pressure Position Semi-Fowlers Blood Pressure Location Left Arm Pulse Ox 94 Oxygen Delivery Method Room Air Nasal Cannula Oxygen Flow Rate (L/min) 2 Weight Weight: 76.067 kg Body Mass Index (BMI) 24.7 Physical Exam Const alert, oriented x3, no apparent distress and average body habitus Constitutional Narrative: Upper middle-aged white male who appears older than stated age, sitting up in bed straight cathing himself, appears comfortable nontoxic General Appearance: cooperative HEENT normocephalic, head/scalp atraumatic and moist oral mucous membranes HEENT Narrative: Dentition is poor, Mallampati is 2, no thrush Eyes PERRL, EOMs intact bilaterally and conjunctivae normal Eyes Narrative: No scleral icterus Neck no lymphadenopathy, supple, no JVD and no carotid bruits Neck Narrative: Trachea midline, no thyroid enlargement Resp normal respiratory effort, no retractions, no use of accessory muscles and clear to auscultation bilaterally Resp Narrative: Diffusely diminished but clear Auscultation: Negative for crackles, rales, rhonchi or wheezes Cardio regular rate, regular rhythm, S1 normal heart sound, S2 normal heart sound, no murmurs, no rub, no gallops, no clicks and no JVD GI normal to inspection, nondistended, normoactive bowel sounds, soft to palpation, non-tender and non-distended GI Narrative: No fluid wave, mild splenomegaly Extremity no clubbing, cyanosis or edema Extremity Narrative: Right lower extremity shortened externally rotated, decreased lean muscle mass Neuro oriented x3 and CN's II-XII intact bilaterally Neuro Narrative: Right lower extremity foot drop with what appears to be a plantar flexion contracture and decreased sensation in his right lower extremity and foot no other significant abnormalities noted, upper extremity strength is good Speech: speech normal Psych affect normal Psych Narrative: Pleasant and appropriately interactive Results Medical Records Data Attestation: I reviewed the patient's medical records Lab / Micro Data Attestation: I reviewed the patient's lab results. Assessment & Plan Assessment/Plan (1) Closed right hip fracture: (2) Right foot drop: (3) Gait abnormality: PLAN: Plan Acute right femoral neck fracture -Secondary to mechanical fall -Patient with chronic right foot drop-no AFO -Ambulates with walker at baseline-wheeled -Continue home chronic narcotics and add as needed Oxy for breakthrough -Bowel regimen -N.p.o. until seen by orthopedic surgery -Preop EKG given age 61 -Check vitamin D level -PT/OT consultation following surgery -Consult Dr. Hilario--> was notified by [facility] [facility] Chronic right foot drop secondary to lumbar radiculopathy -Patient with marked gait abnormalities related to this -His foot drop caused the fall -Would recommend evaluation for an AFO if patient has range of motion to be placed in one Liver cirrhosis secondary to alcohol abuse -Patient follows in [place] -History of esophageal varices status post banding -No current issues -Continue home medications as ordered -Patient is currently drinking about 6 beers per week recommend cessation Chronic thrombocytopenia/leukopenia -Suspect related to chronic liver disease and splenomegaly -Platelet count is stable at 118,000 on presentation to [facility] -Monitor COPD -As needed nebulizers -Patient is on no baseline inhalers for this Hypertension -Continue diltiazem -We will hold lisinopril in the perioperative period but would recommend reinitiating after surgery GERD -Continue Protonix Restless leg syndrome -Continue Mirapex -Continue carbidopa levodopa Psoriasis/rosacea -Continue home metronidazole gel Chronic pain -Related to history of low back injury -Continue home gabapentin -Continue home Xtampza ER Neurogenic bladder -Straight cath every 4 hours Vitamin D deficiency -Patient takes 1000 units nightly at home -Check vitamin D level and if less than 30 would recommend initiation of ergocalciferol Tobacco abuse -Recommend cessation -Patient denies need for nicotine replacement therapy -Uses approximately half pack a day DVT prophylaxis -Lovenox for now and then will leave to orthopedic surgery for ongoing prophylaxis after surgery CODE STATUS Full code Charges/Coding Visit Charges Inpatient E&M: 19189 Init Hosp L3
[2022-03-23] MEDS: Lactated Ringers 1,000 ML 50 ML IV ×2 (05:56→11:45)
[2022-03-23] MEDS: oxyCODONE 5 MG Tablet PO ×2 (05:59→23:42)
[2022-03-23 07:07] LABS: Absolute Lymphocyte Count 0.21 X10^3/uL (0.83-4.51); Absolute Neutrophil Count 1.2 X10^3/uL (2.0-7.7); Basophil# 0.03 X10^3/uL; Basophil% 1.5 % (0-1); Eosinophil# 0.07 X10^3/uL; Eosinophils% 3.4 % (0-5); Hemoglobin 13.2 g/dL (13.0-16.5); Lymphocyte # 0.21 X10^3/ul (0.83-4.51); Lymphocyte % 10.3 % (19-41); Mean Corp Hgb Conc 34.7 g/dL (32-36); Mean Corpuscular Hgb 34.9 pg (27.0-32.0); Mean Corpuscular Volume 100.5 fL (80-94); Mean Platelet Vol. 8.6 fl (6.2-12.0); Monocyte# 0.49 X10^3/uL; Monocyte% 24.1 % (0-10); NRBC Flagged by Analyzer 0 % (0-5); Neutrophil # 1.22 X10^3/uL (2.7-7.7); Neutrophil % 60.2 % (47-70); POSITIVE DIFFERENTIAL YES; Platelet Count 112 K/mm3 (150-450); RBC Distribution Width CV 15.2 % (11.6-14.6); RBC Distribution Width SD 56.9 fl (35.1-43.9); Red Blood Count 3.78 M/mm3 (4.6-6.2)
[2022-03-23 07:08] LABS: Differential Indicated SCAN CRITERIA MET
[2022-03-23 07:17] LABS: International Normalized Ratio 1.3; Prothrombin Time (Protime)PT. 15.5 SECONDS (11.7-14.9)
[2022-03-23 07:18] LABS: Partial Thromboplast Time 33.4 Seconds (24.1-36.2)
--- NOTE | 2022-03-23 07:21 | PN.HOSP_ITS ---
Hospitalist Note The patient is admitted with right hip pain after mechanical fall resulting to right hip fracture direct admit from [facility]. Patient has history of alcoholic cirrhosis status post variceal banding. Patient also has history of lumbar spinal stenosis with degenerative lumbar spine arthritis and chronic right foot drop. Patient last EGD was in 2019 which showed no bleeding and no noted esophageal varices. Dr. Hilario was consulted. H&H 13.2/38, leukopenia WC count 2.0 with chronic thrombocytopenia 112,000. INR 1.3. Physical exam General: Alert, Oriented x3, Cooperative HEENT: Atraumatic, PERRLA, EOMI, Normocephalic Oral: No Gingival or Mucosal Lesions/ Ulcerations Neck: Supple, No JVD, Negative Carotid Bruits Lungs: Air entry diminished in bilateral lung bases. No crepitation/rhonchi Cardiovascular: Regular rate, Regular Rhythm, Normal S1, Normal S2, No murmurs Abdomen: Bowel Sounds Present, Soft, Non Tender, Non-Distended : No renal angle tenderness. No suprapubic tenderness. Extremities: No edema, Capillary Refill Less than 3 Seconds Skin: No rashes, No breakdown Musculoskeletal: No Tenderness to Palpation of Joints or Extremities Neurological: Hard time in recall and registration probably mild hepatic encephalopathy cranial nerves II-XII grossly intact, DTR 2+/4 and Symmetrical, Psych/Mental Status: Flat affect Assessment and plan 1. Perioperative surgical risk evaluation in view of decompensated alcoholic liver cirrhosis with moderate ascites minimal/moderate toxic metabolic hepatic encephalopathy. Patient denies any major anesthetic complication in the past. He had plastic surgery of rhinophyma by Dr. Guthrie in the past. Calculated meld sodium score is 12, 6% estimated 3-month mortality. CTP score 9 , moderately severe liver disease with INR 1.3, total bilirubin 2.2, albumin 2.9, moderate ascites and mild toxic metabolic encephalopathy. Patient has history of decompensated alcoholic cirrhosis with most recent variceal banding about 4 years ago. No recent hematemesis, melena at least in last 6 months to 1 year. Patient is still drinks alcohol and smokes half pack per day. Twelve-lead EKG sinus tachycardia 103 bpm. QRS 82 ms, QTC 450 ms. NSQIP surgical risk calculated and serious complication, any complication pneumonia cardiac complication are below average. Surgical site infection above average. Patient also has decreased functional activity, mainly due to chronic alcohol use, chronic lumbar spinal stenosis/degenerative arthritis. Patient states he can climb 4-5 steps. He uses walker and can walk short distance. He has chronic right foot drop. Chest x-ray done and revealed chronic interstitial markings but no acute process/abnormality. Discussed with the orthopedic surgeon that patient is moderate to high risk perioperative risk factor owing to decompensated alcoholic cirrhosis with history of ascites, minimal to mild encephalopathy, esophageal varices status post banding, coagulopathy, thrombocytopenia with increased risk of bleeding, continued smoking and decreased functional activity. Patient can be taken for surgery. 2. Decompensated liver cirrhosis: Lactulose 20 g twice daily for increased confusion. Xifaxan 550 mg twice daily. His ascites is controlled and did not require paracentesis at least recently as per the patient. He said he never had paracentesis. Mild jaundice. INR mildly elevated. Chronic thrombocytopenia and leukopenia. Anesthesiologist requested to use medication that has decreased hepatic clearance. Patient might have increased bleeding risk due to mild coagulopathy, decompensated cirrhosis and thrombocytopenia. Vitamin K 5 mg IV ordered 3. Chronic smoker: Patient never cannulated with PFT. Still smokes a pack a day. Counseled to stop smoking. Nicotine patch. 4. Chronic back pain, right foot drop lumbar spinal stenosis and degenerative arthritis: PT and OT consulted. Avoid high-dose of opioids as encephalopathy might gets worse in view of cirrhosis and decreased clearance of medications. DVT prophylaxis: Eliquis 2.5 mg twice daily after surgery when the operative bleeding is controlled Total time of the visit including total time spent in counseling or coordination of care, (more than 50% of the total time, spent in obtaining medical information from nurses and other ancillary care providers,explaining to the patient about labs, imaging, diagnosis and management), , review of labs and imaging is 40 minutes. Laboratory Results 03/23/22 06:45: WBC 2.0 L, RBC 3.78 L, Hgb 13.2, Hct 38.0 L, MCV 100.5 H, MCH 34.9 H, MCHC 34.7, RDW Std Deviation 56.9 H, RDW Coeff of Jose 15.2 H, Plt Count 112 L, MPV 8.6, Immature Gran % (Auto) 0.500, Neut % (Auto) 60.2, Lymph % (Auto) 10.3 L, [place] % (Auto) 24.1 H, Eos % (Auto) 3.4, Baso % (Auto) 1.5 H, Absolute Neuts (auto) 1.2 L, Absolute Lymphs (auto) 0.21 L, Nucleated RBC % 0 03/23/22 06:45: PT 15.5 H, INR 1.3, APTT 33.4 03/23/22 06:45: Sodium 137, Potassium 3.8, Chloride 108 H, Carbon Dioxide 24.0, Anion Gap 5, BUN 10, Creatinine 0.75, Estim Creat Clear Calc 102.12, Est GFR (MDRD) Af Amer 135, Est GFR (MDRD) Non-Af 112, BUN/Creatinine Ratio 13.3, G lucose 100, Calcium 9.1, Magnesium 1.9, Total Bilirubin 2.20 H, Direct Bilirubin 1.16 H, AST 44 H, ALT 28, Alkaline Phosphatase 101, Total Protein 7.5, Albumin 2.9 L, Globulin 4.6 H 03/23/22 06:45: Blood Type Pending, Antibody Screen Pending 03/23/22 06:45: Phosphorus 3.2 03/23/22 06:45: Vitamin D 25-Hydroxy Pending Total time of the visit including total time spent in counseling or coordination of care, (more than 50% of the total time, spent in obtaining medical information from nurses and other ancillary care providers,explaining to the patient about labs, imaging, diagnosis and management), perioperative risk and cirrhosis evaluation, discussion with orthopedic surgeon, review of labs and imaging is 60 minutes. Procedures Hospitalists Procedures: [id number] Prolonged InPt Service; first hour
[2022-03-23 07:35] LABS: Phosphorus 3.2 mg/dL (2.5-4.9)
[2022-03-23 07:38] LABS: AST(SGOT) 44 U/L (15-37); Alanine Aminotransfer ALT/SGPT 28 U/L (16-61); Albumin, Serum 2.9 g/dL (3.2-5.0); Alkaline Phosphatase 101 U/L (45-117); Anion Gap 5 (5-15); BUN 10 mg/dL (7-18); BUN/Creat Ratio 13.3 RATIO (10-20); Bilirubin, Direct 1.16 mg/dL (0.00-0.30); Calcium,Total 9.1 mg/dL (8.5-10.1); Chloride 108 mmol/L (98-107); Creatinine, Serum 0.75 mg/dL (0.70-1.30); EST Glomerular Filtration Rate 112 mL/min (>60); Est Glom Filt Rate - Afr Amer 135 mL/min (>60); Estimated Creatinine Clearance 102.12 ml/min; Globulin 4.6 g/dL (2.2-4.2); Glucose 100 mg/dL (74-106); Magnesium 1.9 mg/dL (1.6-2.6); Potassium 3.8 mmol/L (3.5-5.1); Protein, Total 7.5 g/dL (6.4-8.2); Sodium Level 137 mmol/L (136-145)
--- NOTE | 2022-03-23 07:44 | RAD_ITS ---
HISTORY: Right hip fracture. TECHNIQUE: XR Hip Unilateral with Pelvis when performed; 2-3 Views. COMPARISON: XR prior day''s. FINDINGS: OSSEOUS STRUCTURES: Mildly impacted right femoral neck fracture with anterior displacement. Note that overlapping bowel shadows may obscure osseous detail. Mild osteopenia. JOINT SPACES: No dislocation. Mild degenerative changes. SOFT TISSUES: Gaseous distention and dilatation of bowel in the lower abdomen. RAD/HIP, UNI W/ Pelvis 2-3 Views IMPRESSION: Displaced fracture of the right femoral neck. Gaseous distention and dilatation of bowel in the lower abdomen, which may reflect ileus or obstruction. Electronically Signed: Cherie Harp MD at 8:57 EDT ,
--- NOTE | 2022-03-23 08:18 | RAD_ITS ---
HISTORY: smoking, pre op. TECHNIQUE: XR Chest 1 View. COMPARISON: 05/11/2019. FINDINGS: CARDIOMEDIASTINAL BORDERS: Cardiac silhouette within normal limits in size. Mediastinal contour unremarkable with the patient rotated. LUNGS: Chronic coarse interstitial markings in the lungs without focal consolidation. PLEURA: No pleural effusion or pneumothorax seen. OSSEOUS STRUCTURES: Unremarkable. RAD/Chest 1 View IMPRESSION: No acute cardiopulmonary process identified. Electronically Signed: Cherie Harp MD at 8:55 EDT ,
--- NOTE | 2022-03-23 08:34 | ECHOCS_ITS ---
Reason For Study: Pre Op Procedure This was a 2D Doppler, Color Flow transthoracic echocardiogram. Technically difficult study, Contrast injection performed. Patient scanned supine due to hip fracture. Exam performed portable in patient room. Left Ventricle Overall image quality is fair with] 6 out of 10]. Contrast was used to enhance iimage quality. Visually estimated left ventricular ejection fraction is about 65 to 70% No regional wall motion abnormalities appreciated There is mild concentric left ventricular hypertrophy. Unable to comment on diastolic function. LV cavity size is within normal limits. Patient appeared to be tachycardic during the study. Right Ventricle Normal right ventricle. Atria Left atrium appears mildly dilated, measures about 4.2 cm in transverse diameter. Right atrial size appears normal. Mitral Valve Mitral valve appears grossly normal structurally and functionally, there is no mitral stenosis or regurgitation. Tricuspid Valve Tricuspid valve appears grossly normal, there is no appreciable tricuspid regurgitation, PA systolic pressure could not be estimated. Aortic Valve Aortic valve appears tricuspid, there is no aortic stenosis or regurgitation, there is minimal leaflet thickening. Pulmonic Valve Pulmonic valve was not adequately visualized. Pericardium/Pleural No pericardial effusion. Medication Diluted definity 2.5ml given slow IV push to enhance endocardial definition. MMode/2D Measurements & Calculations LVIDd: 4.4 cm IVSd: 1.1 cm LA dimension: 3.4 cm LVIDs: 2.8 cm LVPWd: 1.3 cm FS: 36.0 % LAV(MOD-sp4): 50.1 ml LA A4 area: 18.7 cm2 RA A4 area: 15.6 cm2 Time Measurements MV dec time: 0.19 sec Doppler Measurements & Calculations MV E max goyo: 81.0 cm/sec Lat Peak E' Goyo: 9.6 cm/sec Med Peak E' Goyo: 7.7 cm/sec MV A max goyo: 110.7 cm/sec E/E' lat: 8.5 E/E' med: 10.5 MV E/A: 0.73 MV V2 max: 124.2 cm/sec MV P1/2t max goyo: 91.5 cm/sec Ao V2 max: 131.0 cm/sec MV max P.2 mmHg MV P1/2t: 81.2 msec Ao max P.9 mmHg MV V2 mean: 69.5 cm/sec MV dec slope: 330.0 cm/sec2 MV mean P.3 mmHg MVA(P1/2t): 2.7 cm2 MV V2 VTI: 22.4 cm LV V1 max: 125.9 cm/sec PA V2 max: 136.8 cm/sec LV V1 max P.3 mmHg ECHO/Echo Complete W/ Contrast Interpretation Summary Preserved LV and RV systolic function, grossly normal valves except for mild ca lcification of the aortic valve leaflets. No pericardial effusion No regional wall motion abnormality appreciated Left atrium is mildly dilated at 4.1 cm in transverse diameter. Inferior vena cava appears normal. No prior echo report is available for comparison. Preserved LV and RV systolic function, grossly normal valves except for mild ca lcification of the aortic valve leaflets. No pericardial effusion No regional wall motion abnormality appreciated Left atrium is mildly dilated at 4.1 cm in transverse diameter. Inferior vena cava appears normal. No prior echo report is available for comparison. Ordering Physician: Cameron Solo Referring Physician: Megan Mai Performed By: Ramesh Pacheco RCS
[2022-03-23 09:10] LABS: Differential Comment SCANNED
[2022-03-23] MEDS: Cefazolin 2 GM in 0.9% Normal Saline 100 ML IV (10:49)
--- NOTE | 2022-03-23 12:20 | CON.PCM_ITS ---
Assessment & Plan Assessment/Plan (1) Right foot drop: (2) Closed right hip fracture: PLAN: Plan Patient medically cleared wish to proceed with right hip hemiarthroplasty for right displaced femoral neck fracture patient ordered 2 g Ancef preoperatively as well as 2 g tranexamic acid all questions answered informed consent obtained. Patient will benefit from right ankle AFO postoperatively. HPI Consult Data Date of Consult: 03/23/22 HPI Narrative HPI Narrative: JOSÉ MCDOWELL, is a 61 M who presents who presented to [place] emergency room after ground-level fall secondary to chronic right foot drop from lumbar radiculopathy and stenosis. Patient is alcoholic cirrhosis and tobacco abuse. Patient sustained displaced femoral neck fracture of right hip requested to be transferred to [facility] patient was admitted to hospitalist service and cleared although high risk for bleeding and surgery. [facility] Medical History Alcohol abuse Anemia Anemia Back pain due to injury Back problem Bleeding tendency Chronic indwelling Kim catheter Chronic pain Cirrhosis Epidermal inclusion cyst Failed skin graft Family history of skin cancer Gastroesophageal reflux disease without esophagitis GI bleed History of blood transfusion Hypertension Hypokalemia Left nasal polyps Leukopenia Multiple allergies Neoplasm of skin of eyelid Neurogenic bladder Panlobular emphysema Restless legs Rhinophyma Rosacea Secondary esophageal varices with bleeding Smoker Smoker Thrombocytopenia Verrucous keratosis Vitamin D deficiency Home Medications albuterol 90 mcg/actuation aerosol inhaler 90 mcg inhalation Q4H PRN PRN sob 10/29/17 [History Last Taken 11/25/17 08:00] diltiazem HCl 240 mg capsule,extended release 24 hr 240 mg PO QHS BLOOD PRESSURE 10/29/17 [History Last Taken 03/21/22] ferrous sulfate 325 mg (65 mg iron) tablet,delayed release 325 mg PO QHS REPLACMENT 10/29/17 [History Last Taken Unknown] metronidazole 0.75 % topical gel 1 applic topical Q12H PSORIASIS 10/29/17 [History Last Taken Unknown] pantoprazole 40 mg granules delayed-release for susp in packet 40 mg PO QDAY HEARTBURN 10/29/17 [History Last Taken 11/25/17 08:00] potassium chloride 20 mEq tablet,extended release(part/cryst) (Klor-Con M) 20 meq PO QDAY 10/29/17 [History Last Taken Unknown] pramipexole 0.125 mg tablet 0.125 mg PO QHS RESTLESS LEGS 10/29/17 [History Last Taken Unknown] cholecalciferol (vitamin D3) 25 mcg (1,000 unit) tablet 1,000 unit PO QHS REPLACEMENT 04/22/19 [History Last Taken 03/21/22] lisinopril 5 mg tablet 5 mg PO QHS BLOOD PRESSURE 04/22/19 [History Last Taken 03/21/22] carbidopa 10 mg-levodopa 100 mg tablet 2 tab PO DAILY restless legs 03/23/22 [History Last Taken Unknown] gabapentin 300 mg capsule 300 cap PO BID CHRONIC PAIN 03/23/22 [History Last Taken Unknown] levocetirizine 5 mg tablet (Xyzal) 5 mg PO DAILY ALLERGIES 03/23/22 [History Last Taken Unknown] oxycodone myristate 9 mg capsule sprinkle extended release 12 hr(DON'T CRUSH) (Xtampza ER) 9 mg PO BID CHRONIC RT LEG PAIN 03/23/22 [History Last Taken Unknown] Allergy/AdvReac Type Severity Reaction Status Date / Time acetaminophen [From Tylenol] Allergy Intermediate Hives Verified 05/11/19 11:27 Family History Father Alcoholism Hypertension Grandmother Angina at rest Breast cancer Diabetes Mother Bleeding disorder Sister Breast cancer Social History (Updated 03/23/22 @ 05:[address] Carli Connelly DO) household members: spouse and children housing: house Smoking Status: Current every day smoker tobacco type: cigarettes Smoking packs per day: 0.5 Smoking cigarettes per day: 10.0 alcohol intake: current alcohol intake frequency: 0-2 drinks per day details: Drinks approximately 6 beers a week substance use type: does not use do you feel safe at home: Yes Physical Exam Const alert and no apparent distress; Negative for healthy appearing or well nourished General Appearance: cooperative Extremity Extremity Narrative: Right lower extremity compartments soft no open wounds palpable pedal pulses he is able to plantarflex but not dorsiflex chronic dropfoot Lab / Micro Data Result Diagrams: 03/23/22 06:45 03/23/22 06:45 Labs: Laboratory Results - last 24 hr 03/23/22 06:45: WBC 2.0 L, RBC 3.78 L, Hgb 13.2, Hct 38.0 L, MCV 100.5 H, MCH 34.9 H, MCHC 34.7, RDW Std Deviation 56.9 H, RDW Coeff of Jose 15.2 H, Plt Count 112 L, MPV 8.6, Immature Gran % (Auto) 0.500, Neut % (Auto) 60.2, Lymph % (Auto) 10.3 L, [place] % (Auto) 24.1 H, Eos % (Auto) 3.4, Baso % (Auto) 1.5 H, Absolute Neuts (auto) 1.2 L, Absolute Lymphs (auto) 0.21 L, Nucleated RBC % 0, Differential Comment SCANNED, Diff Path Review February03/23/22 06:45: PT 15.5 H, INR 1.3, APTT 33.4 03/23/22 06:45: Sodium 137, Potassium 3.8, Chloride 108 H, Carbon Dioxide 24.0, Anion Gap 5, BUN 10, Creatinine 0.75, Estim Creat Clear Calc 102.12, Est GFR (MDRD) Af Amer 135, Est GFR (MDRD) Non-Af 112, BUN/Creatinine Ratio 13.3, Glucose 100, Calcium 9.1, Magnesium 1.9, Total Bilirubin 2.20 H, Direct Bilirubin 1.16 H, AST 44 H, ALT 28, Alkaline Phosphatase 101, Total Protein 7.5, Albumin 2.9 L, Globulin 4.6 H 03/23/22 06:45: Blood Type A POSITIVE, Antibody Screen NEGATIVE 03/23/22 06:45: Phosphorus 3.2 Radiology Impression Hip/Pelvis X-Ray 03/23/22 07:44 IMPRESSION: Displaced fracture of the right femoral neck. Gaseous distention and dilatation of bowel in the lower abdomen, which may reflect ileus or obstruction. Electronically Signed: Cherie Harp MD at 8:57 EDT , Chest X-Ray 03/23/22 08:18 IMPRESSION: No acute cardiopulmonary process identified. Electronically Signed: Cherie Harp MD at 8:55 EDT ,
--- NOTE | 2022-03-23 12:24 | PCM.OPRPT ---
Report of Operation Date of Procedure: 03/23/22 Description of Surgical Findings:: Preoperative diagnosis: Right hip femoral neck fracture displaced Postoperative diagnosis: Same Procedure: Right hip hemiarthroplasty Implants: Maryann Accolade II stem size 4 127 degree neck angle 0 neck length 49 mm outer diameter bipolar head Anesthesia: General l EBL: 425 cc Complications: None Condition: Stable to PACU Indication for procedure: This is a 61-year-old male patient with known cirrhosis and chronic right foot drop sustained a ground-level fall resulting in a displaced right femoral neck fracture. plans for definitive hemiarthroplasty were discussed including risks benefits and alternatives of the procedure were reviewed with the patient including risk of bleeding infection nerve artery tissue damage need for further surgery continue pain postoperative hip precaution restrictions leg length discrepancy and dislocation. Procedure: Patient was met in the preoperative holding area once again the operative extremity was identified by both patient and physician and was marked. Patient was met by anesthesia and brought to the operating room where anesthesia was started . The patient was then positioned in the lateral decubitus position on a well-padded pegboard with an axillary roll. All bony prominences were checked and padded. The patient was prepped and draped in the usual sterile fashion. A timeout was called to ensure the proper patient procedure and extremity were being contemplated. Anatomic landmarks were palpated and marked for a standard posterior lateral approach. A timeout was called to ensure the proper patient procedure and extremity were being contemplated. A 10 blade scalpel was used to make a posterior incision through the skin and subcutaneous tissue. In retractors were used and electrocautery was used to maintain meticulous hemostasis and dissect full-thickness flaps until the gluteal fascia was reached. The gluteal fascia was incised in line with the gluteal fibers. The bursal tissue was then freed from the underside and a Charnley retractor was placed. The fatpad was elevated off of the external rotators with electrocautery and the external rotators were dissected off of the greater trochanter including the piriformis and were tagged with #1 Ethibond for later repair. The joint capsule opened with posterior trapdoor technique. A femoral neck cutting guide was used to mingo the neck with a Bovie and an oscillating saw was used to complete the femoral neck cut. the fracture was visualized and with the use of a corkscrew and a skid the femoral head was removed and sized. We then trialed with the matching sizes . Hohmann was placed around the lesser trochanter. A femoral elevator was used. As well as a pointed wide Hohmann around the lesser trochanter and a Hohmann to help retract the gluteus medius. A box chisel was used to remove excess lateral neck followed by a canal finder and a lateralizing reamer. This was followed by sequential broaches. Attention was made of the version within the canal. Once the final broach was seated we then trialed and reduced the hip it was determined that a 127 degree neck angle with a 0 neck length was the appropriate size. We then checked stability with shuck testing as well as flexion and interminal rotation then proceeded with hip extension and checked leg lengths at the knees and heels. At this point trials were removed. The femoral stem was inserted. We re-trialed and then proceeded to impact the femoral head onto the Lawrence taper. We then surgically reduce the hip check stability again and leg lengths and were satisfied. irricept rinse was allowed to sit for 1 minutes while everyone changed their gloves. Thorough irrigation was performed. Followed by closure of the external rotators with #2 FiberWire followed by closure of gluteal fascia with #1 Ethibond. 0 Vicryl fat stitches and 2-0 Vicryl subcutaneous stitches and jose guadalupe in the skin. Dressing was applied in the form of silverlon dressing and an abduction pillow was placed. Patient tolerated the procedure well there was no intraoperative complications all counts were correct and the patient was brought back to the PACU in stable condition
--- NOTE | 2022-03-23 12:25 | RAD_ITS ---
HISTORY Post Op -- AP both hips on single lorri/lateral of op hip PACU. TECHNIQUE: XR Hip Unilateral with Pelvis when performed; 2-3 Views. COMPARISON: None. FINDINGS: BONES : Interval placement of right hip arthroplasty. No acute osseous abnormality identified. JOINTS: No dislocation. SOFT TISSUES: Expected postoperative air and edema with overlying skin jose guadalupe. RAD/Hip Min 2 Views (Portable) IMPRESSION: Satisfactory postoperative alignment of right hip arthroplasty. Electronically Signed: Cherie Harp MD at 14:07 EDT ,
[2022-03-23] MEDS: Cefazolin 1 GM/50 ML BAG IV ×2 (12:44→21:40)
--- NOTE | 2022-03-23 15:17 | CASEMGMT ---
Social Work SW met w/pt in room in regard to prior level of function and anticipated discharge plan. PCP: Megan Mai Specialists: Dr. George, pain management Pharmacy: [facility] in [place] Insurance/Prescription coverage: [employer] Medicare Prior level of function/living arrangements: Pt lives w/ and 3 year old great, great nephew. Pt normally independent with ADLs. Pt uses a cane at baseline. Transportation: Pt states his does more of the driving. DME: [facility] Hx of SNF/HHC: None, pt states they have used the outpt clinic in [place] LW/POA: Pt has not completed the forms, is agreeable for to be decision maker in event he cannot make decisions for himself. History of alcohol use: Pt states that his alcohol use is not an issue. He states he drinks a couple beers a couple times per week with his brother or when he is fishing. PLAN: TBD SW spoke w/pt about discharge plan. ECLY provided a list to pt of residential facilities in network w/pt's insurance, complete with quality and resource use data, in pt's preferred geographic area. SW explained pt will have PT tomorrow, and based on how that goes, this will help determine the appropriate level of care. SW explained if pt is needing some assist to ambulate he may want to consider going for rehab. SW asked him to review the list with his and choose 2-3 places he would consider for rehab. SW explained the SW Friday will come back to speak w/him about choices. Pt states understanding. SW will continue to follow, will follow up on Friday. RUBÉN Hu
[2022-03-23] MEDS: oxyCODONE HCl Cr 10 MG Tablet PO ×2 (15:27→21:40)
[2022-03-23] MEDS: Lactated Ringers 1,000 ML 125 ML IV ×2 (15:55→23:42)
[2022-03-23] MEDS: Calcium Carbonate 500 MG Tablet PO (18:12)
[2022-03-23] MEDS: Ferrous Sulfate 325 MG Tablet PO (21:40)
[2022-03-23] MEDS: dilTIAZem CD 240 MG Capsule PO (21:40)
[2022-03-23] MEDS: Gabapentin 300 MG Capsule PO (21:40)
[2022-03-23] MEDS: Cholecalciferol (VIT D3) 25 MCG TABLET (1,000 UNITS) PO (21:40)
[2022-03-23] MEDS: Lactulose 20 GM/30 ML UDC 10 GM PO (21:40)
[2022-03-23] MEDS: Pramipexole Di-HCl 0.125 MG Tablet PO (21:40)
[2022-03-23] MEDS: rifAXIMin 550 MG Tablet PO (21:40)
--- NOTE | 2022-03-23 23:56 | PCM.HOSP.N ---
Hospitalist Note Called secondary to patient developing fever. Initially was low-grade at 100.9 but has subsequently risen to 102.9. White count is low at 2.0 and this is baseline for him. Could be postoperative however will obtain blood cultures x2, check a UA and check urine culture if UA is suggestive of infection as patient does self cath, chest x-ray from today shows no acute cardiopulmonary process, sputum ordered however doubt will be able to produce. Start vancomycin and Zosyn. We will stop Ancef given broader spectrum being utilized. Unfortunately patient has Tylenol allergy with hives. Do not want to give scheduled NSAIDs with history of liver disease and bleeding/esophageal varices ulcer disease but will give Toradol IV x1 dose 15 mg to help anand the fever. Patient is also being packed in ice.
[2022-03-24] VITALS (33 sets, daily range): BP systolic 92–139; BP diastolic 54–82; PULSE 87–120; RESP 15–30; TEMP 37.4–39.4; O2SAT 90–98
[2022-03-24] MEDS: Ketorolac 15 MG/ML Vial IV (00:40)
[2022-03-24] MEDS: 0.9% Saline Lock 10 ML Syringe IV (00:41)
[2022-03-24 00:47] LABS: Mucous, Urine 0 SEEN /hpf (<or=2+); Red Blood Cells-Urine 0 SEEN /hpf (0-5)
--- NOTE | 2022-03-24 01:02 | PCM.RX.CS ---
Consult Pharmacy has been consulted to manage selected antiobiotic: Vancomycin Type of Consult: New start Labs: Sodium 137 mmol/L (136-145) 03/23/22 06:45 Potassium 3.8 mmol/L (3.5-5.1) 03/23/22 06:45 Chloride 108 mmol/L (98-107) H 03/23/22 06:45 Carbon Dioxide 24.0 mmol/L (21.0-32.0) 03/23/22 06:45 Anion Gap 5 (5-15) 03/23/22 06:45 BUN 10 mg/dL (7-18) 03/23/22 06:45 Creatinine 0.75 mg/dL (0.70-1.30) 03/23/22 06:45 Est GFR (MDRD) Af Amer 135 mL/min (>60) 03/23/22 06:45 Est GFR (MDRD) Non-Af 112 mL/min (>60) 03/23/22 06:45 BUN/Creatinine Ratio 13.3 RATIO (10-20) 03/23/22 06:45 Glucose 100 mg/dL (74-106) 03/23/22 06:45 Weight used for dosin kg Estimated Creatinine Clearance: 102 Goal Trough: 15-20 mcg/mL Pharmacy Plan for Drug Dosing: Pharmacy Service will continue to monitor and adjust dosing as required. Medications Vancomycin HCl 1,250 mg/ (Sodium Chloride) 275 mls @ 167 mls/hr IV X1 ONE Stop: 03/24/22 02:08 Last Admin: 03/24/22 00:39 Dose: 167 mls/hr Vancomycin HCl (Vancomycin) 1,000 mg in 200 mls @ 200 mls/hr IV Q8H ON LICENSE OF [facility] Follow-Up Labs: Trough Vancomycin Labs to be done on [date and time ordered]: 03/25 @ 0000
[2022-03-24 01:24] LABS: Color, Urine Yellow (Yellow); Glucose, Dipstick Normal (Normal); Ketone-Dipstick Negative (Negative); Leukocyte Esterase-Dipstick 500 /ul (Negative); Nitrite-Dipstick Negative (Negative); Occult Blood-Urine Negative /ul (Negative); Protein-Dipstick Negative (Negative); Specific Gravity, Urine 1.015 (1.002-1.030); Urine Bilirubin Dipstick Negative (Negative); Urine Clarity Clear (Clear); Urine Urobilinogen 8 mg/dl (Normal)
[2022-03-24 01:35] LABS: Bacteria 1+ /hpf (None Seen); Squamous Epithelial Cells - UA 0-5 SEEN /hpf (0-5); White Blood Cells 25-50 SEEN /hpf (0-5)
[2022-03-24] MEDS: Albuterol 2.5 MG/3 ML VIAL.NEB. INHALATION (04:21)
[2022-03-24] MEDS: APIXABAN 2.5 MG TABLET PO ×2 (06:11→21:38)
--- NOTE | 2022-03-24 06:40 | RAD_ITS ---
STUDY: X-RAY CHEST REASON FOR EXAM: Male, 61 years old. Shortness of breath and hypoxia per TECHNIQUE: AP portable upright COMPARISON: 03/23/2022 CXR FINDINGS: No evidence of pneumonia, pulmonary edema, pneumothorax or pleural effusion. Cardiac silhouette, hilar and mediastinal contours with no acute findings. Heart size normal. Atherosclerosis of the thoracic aorta. Degenerative osseous changes with no acute osseous abnormality. Distended air-filled colonic loops partially visible upper abdomen. RAD/Chest 1 View (Portable) IMPRESSION: No acute findings. Electronically Signed: Hong Urbina MD at 7:37 EDT Reading Location ID and State: [facility] / [place] Tel , Service support ,
--- NOTE | 2022-03-24 06:43 | CON.PCM.CC_ITS ---
Assessment & Plan Assessment/Plan (1) Sepsis: PLAN: Plan RECOMMENDATIONS: 1. Additional fluid resuscitation as needed. 2. Agree with empiric broad-spectrum antimicrobials, pending culture results. 3. Check lactate, CMP and CBC with differential. 4. Start scheduled bronchodilators and steroids. 5. Initiate alcohol withdrawal protocol. 6. Continue lactulose and rifaximin. IMPRESSIONS: 1. Sepsis The patient appears to be becoming septic with probable urinary tract source of infection with acute sepsis related organ dysfunction as evidenced by hyperbilirubinemia. The patient has a normal ejection fraction on echo along with an albumin of 2.9. He would likely tolerate additional fluid resuscitation, if needed. Initial lactate level is pending. The patient has been initiated on broad-spectrum antimicrobials, with cultures pending. Given his tenuous clinical status, he was transferred to the ICU for further manag ement. Continue supportive measures. 2. Acute right femoral neck fracture The patient is POD #1 status post right hip hemiarthroplasty. Continue routine postoperative management per orthopedic surgery. 3. Questionable history of COPD/chronic tobacco dependency The patient has a longstanding tobacco abuse history along with a questionable COPD diagnosis. Given the wheezing noted on exam today, will initiate scheduled bronchodilator therapy along with steroids. 4. Chronic alcohol dependency with liver cirrhosis The patient has a known history of chronic alcohol dependency with associated liver disease. He does have a history of prior GI bleeds. Therefore, agree with continuing PPI therapy. In light of his ongoing alcohol dependency, recommend initiation of the alcohol withdrawal protocol. 5. Hypertension/GERD/chronic pain/neurogenic bladder Complicates care, management, recovery and prognosis. Hold home antihypertensives for now. This note was generated with [employer] - how to arabia dictation software. It may contain incorrect words, spelling, and punctuation that were not noted in checking the note before signing. HPI Consult Data Date of Consult: 03/24/22 HPI Narrative Reason for Consultation: Sepsis HPI Narrative: The patient is a 61-year-old male, with a history as outlined below, who presented as a transfer of care from [facility] emergency department on March 22 with right leg and hip pain. The patient apparently tripped while going to the bathroom. The patient has a known history of liver cirrhosis related to alcohol dependency along with history of GI bleeds. The patient does continue to drink daily, but is not very clear as to how many beers he typically drinks on a daily basis. In addition, the patient has a history of chronic tobacco dependency and continues to smoke cigarettes daily. His medical history is also significant for Parkinson's disease with baseline tremors. On presentation, the patient was noted to be afebrile and hemodynamically stable. Laboratory evaluation revealed an elevated total bili to 2.2. AST was elevated at 44. Urinalysis was positive for leukocyte esterase, negative for nitrites and positive for 1+ urine bacteria. Hip/pelvis x-ray revealed a displaced fracture of the right femoral neck. The patient was initially admitted and evaluated by orthopedic surgery. Surface echocardiogram demonstrated an ejection fraction of 65 to 70%. On March 23, the patient underwent a right hip hemiarthroplasty. Overnight, the patient developed fevers with a T-max of 102.9 ?F. He also developed soft blood pressures. Cultures were obtained and antimicrobials were initiated. The patient was subsequently transferred to the medical intensive care unit for furt her management. [facility] Medical History Alcohol abuse Anemia Anemia Back pain due to injury Back problem Bleeding tendency Chronic indwelling Kim catheter Chronic pain Cirrhosis Epidermal inclusion cyst Failed skin graft Family history of skin cancer Gastroesophageal reflux disease without esophagitis GI bleed History of blood transfusion Hypertension Hypokalemia Left nasal polyps Leukopenia Multiple allergies Neoplasm of skin of eyelid Neurogenic bladder Panlobular emphysema Restless legs Rhinophyma Rosacea Secondary esophageal varices with bleeding Smoker Smoker Thrombocytopenia Verrucous keratosis Vitamin D deficiency Home Medications albuterol 90 mcg/actuation aerosol inhaler 90 mcg inhalation Q4H PRN PRN sob 10/29/17 [History Last Taken 11/25/17 08:00] diltiazem HCl 240 mg capsule,extended release 24 hr 240 mg PO QHS BLOOD PRESSURE 10/29/17 [History Last Taken 03/21/22] ferrous sulfate 325 mg (65 mg iron) tablet,delayed release 325 mg PO QHS REPLACMENT 10/29/17 [History Last Taken Unknown] metronidazole 0.75 % topical gel 1 applic topical Q12H PSORIASIS 10/29/17 [History Last Taken Unknown] pantoprazole 40 mg granules delayed-release for susp in packet 40 mg PO QDAY HEARTBURN 10/29/17 [History Last Taken 11/25/17 08:00] potassium chloride 20 mEq tablet,extended release(part/cryst) (Klor-Con M) 20 meq PO QDAY 10/29/17 [History Last Taken Unknown] pramipexole 0.125 mg tablet 0.125 mg PO QHS RESTLESS LEGS 10/29/17 [History Last Taken Unknown] cholecalciferol (vitamin D3) 25 mcg (1,000 unit) tablet 1,000 unit PO QHS REPLACEMENT 04/22/19 [History Last Taken 03/21/22] lisinopril 5 mg tablet 5 mg PO QHS BLOOD PRESSURE 04/22/19 [History Last Taken 03/21/22] carbidopa 10 mg-levodopa 100 mg tablet 2 tab PO DAILY restless legs 03/23/22 [History Last Taken Unknown] gabapentin 300 mg capsule 300 cap PO BID CHRONIC PAIN 03/23/22 [History Last Taken Unknown] levocetirizine 5 mg tablet (Xyzal) 5 mg PO DAILY ALLERGIES 03/23/22 [History Last Taken Unknown] oxycodone myristate 9 mg capsule sprinkle extended release 12 hr(DON'T CRUSH) (Xtampza ER) 9 mg PO BID CHRONIC RT LEG PAIN 03/23/22 [History Last Taken Unknown] Allergy/AdvReac Type Severity Reaction Status Date / Time acetaminophen [From Tylenol] Allergy Intermediate Hives Verified 05/11/19 11:27 Family History Father Alcoholism Hypertension Grandmother Angina at rest Breast cancer Diabetes Mother Bleeding disorder Sister Breast cancer Social History (Updated 03/23/22 @ 05:[address] Carli Connelly DO) household members: spouse and children housing: house Smoking Status: Current every day smoker tobacco type: cigarettes Smoking packs per day: 0.5 Smoking cigarettes per day: 10.0 alcohol intake: current alcohol intake frequency: 0-2 drinks per day details: Drinks approximately 6 beers a week substance use type: does not use do you feel safe at home: Yes ROS Constitutional Constitutional: Reports chills and fever(s) Eyes Eyes: Denies blurry vision or change in vision ENT HEENT: Denies dizziness, dysphagia, epistaxis or headache(s) Cardiovascular Cardiovascular: Denies chest pain or dyspnea Respiratory/Chest Respiratory/Chest: Reports wheezing Gastrointestinal Gastrointestinal: Denies abdominal pain, diarrhea, nausea or vomiting Genitourinary Genitourinary: Reports difficulty urinating Musculoskeletal Musculoskeletal: Reports joint pain; Denies arthralgias or back pain Integumentary Integumentary: Denies lesions, rash or skin ulcer Neurologic Neurologic: Denies abnormal gait or abnormal speech Psychiatric Psychiatric: Denies anxiety Endocrine Endocrinology: Denies fatigue Hematologic/Lymphatic Hematologic/Lymphatic: Denies easy bleeding or easy bruising Physical Exam Const alert General Appearance: cooperative, ill appearing and frail HEENT normocephalic and head/scalp atraumatic Eyes PERRL, EOMs intact bilaterally and conjunctivae normal Neck supple General: trachea midline Chest inspection of chest normal Resp normal respiratory effort Effort and Inspection: tachypneic Auscultation: wheezes and diminished lung sounds Cardio S1 normal heart sound and S2 normal heart sound Rate: tachycardic GI Inspection: abdominal distention Palpation: Negative for tender, guarding or rigid Extremity no clubbing, cyanosis or edema Skin no rashes or lesions noted Neuro CN's II-XII intact bilaterally and no focal motor deficits Psych Mood & Affect: flat affect Lab / Micro Data Result Diagrams: 03/24/22 06:50 03/23/22 06:45 Labs: Laboratory Results - last 24 hr 03/23/22 06:45: WBC 2.0 L, RBC 3.78 L, Hgb 13.2, Hct 38.0 L, MCV 100.5 H, MCH 34.9 H, MCHC 34.7, RDW Std Deviation 56.9 H, RDW Coeff of Jose 15.2 H, Plt Count 112 L, MPV 8.6, Immature Gran % (Auto) 0.500, Neut % (Auto) 60.2, Lymph % (Auto) 10.3 L, [place] % (Auto) 24.1 H, Eos % (Auto) 3.4, Baso % (Auto) 1.5 H, Absolute Neuts (auto) 1.2 L, Absolute Lymphs (auto) 0.21 L, Nucleated RBC % 0, Differential Comment SCANNED, Diff Path Review February03/23/22 06:45: PT 15.5 H, INR 1.3, APTT 33.4 03/23/22 06:45: Sodium 137, Potassium 3.8, Chloride 108 H, Carbon Dioxide 24.0, Anion Gap 5, BUN 10, Creatinine 0.75, Estim Creat Clear Calc 102.12, Est GFR (MDRD) Af Amer 135, Est GFR (MDRD) Non-Af 112, BUN/Creatinine Ratio 13.3, Glucose 100, Calcium 9.1, Magnesium 1.9, Total Bilirubin 2.20 H, Direct Bilirubin 1.16 H, AST 44 H, ALT 28, Alkaline Phosphatase 101, Total Protein 7.5, Albumin 2.9 L, Globulin 4.6 H 03/23/22 06:45: Blood Type A POSITIVE, Antibody Screen NEGATIVE 03/23/22 06:45: Phosphorus 3.2 03/24/22 00:29: Urine Color Yellow, Urine Clarity Clear, Urine pH 6.0, Ur Specific [place] 1.015, Urine Protein Negative, Urine Glucose (UA) Normal, Urine Ketones Negative, Urine Occult Blood Negative, Urine Nitrite Negative, Urine Bilirubin Negative, Urine Urobilinogen 8 H, Ur Leukocyte Esterase 500 H, Urine RBC 0 SEEN, Urine WBC 25-50 SEEN, Ur Squamous Epith Cells 0-5 SEEN, Urine Bacteria 1+, Urine Mucus 0 SEEN Radiology Impression Hip/Pelvis X-Ray 03/23/22 07:44 IMPRESSION: Displaced fracture of the right femoral neck. Gaseous distention and dilatation of bowel in the lower abdomen, which may reflect ileus or obstruction. Electronically Signed: Cherie Harp MD at 8:57 EDT Reading Location ID and State: [facility] / [place] Tel , Service support , Chest X-Ray 03/23/22 08:18 IMPRESSION: No acute cardiopulmonary process identified. Electronically Signed: Cherie Harp MD at 8:55 EDT , Echocardiogram 03/23/22 08:34 Interpretation Summary Preserved LV and RV systolic function, grossly normal valves except for mild calcification of the aortic valve leaflets. No pericardial effusion No regional wall motion abnormality appreciated Left atrium is mildly dilated at 4.1 cm in transverse diameter. Inferior vena cava appears normal. No prior echo report is available for comparison. Preserved LV and RV systolic function, grossly normal valves except for mild calcification of the aortic valve leaflets. No pericardial effusion No regional wall motion abnormality appreciated Left atrium is mildly dilated at 4.1 cm in transverse diameter. Inferior vena cava appears normal. No prior echo report is available for comparison. Ordering Physician: Cameron Solo Referring Physician: Megan Mai Performed By: Ramesh Pacheco RCS Hip X-Ray 03/23/22 12:25 IMPRESSION: Satisfactory postoperative alignment of right hip arthroplasty. Electronically Signed: Cherie Harp MD at 14:07 EDT , Charges/Coding Visit Charges Inpatient E&M: 39254 Init Hosp L3
[2022-03-24 07:07] LABS: Absolute Lymphocyte Count 0.35 X10^3/uL (0.83-4.51); Absolute Neutrophil Count 2.7 X10^3/uL (2.0-7.7); Basophil# 0.02 X10^3/uL; Basophil% 0.5 % (0-1); Eosinophil# 0.12 X10^3/uL; Eosinophils% 2.9 % (0-5); Hematocrit 32.7 % (40-54); Hemoglobin 10.7 g/dL (13.0-16.5); Lymphocyte # 0.35 X10^3/ul (0.83-4.51); Lymphocyte % 8.6 % (19-41); Mean Corp Hgb Conc 32.7 g/dL (32-36); Mean Corpuscular Hgb 34.2 pg (27.0-32.0); Mean Corpuscular Volume 104.5 fL (80-94); Mean Platelet Vol. 8.5 fl (6.2-12.0); Monocyte# 0.82 X10^3/uL; Monocyte% 20.1 % (0-10); NRBC Flagged by Analyzer 0 % (0-5); Neutrophil # 2.74 X10^3/uL (2.7-7.7); Neutrophil % 67.4 % (47-70); POSITIVE DIFFERENTIAL YES; Platelet Count 106 K/mm3 (150-450); RBC Distribution Width CV 15.1 % (11.6-14.6); RBC Distribution Width SD 58.1 fl (35.1-43.9); Red Blood Count 3.13 M/mm3 (4.6-6.2); White Blood Count 4.1 K/mm3 (4.4-11.0)
--- NOTE | 2022-03-24 07:09 | PN.HOSP_ITS ---
Subjective Subjective Follow-up on sepsis/postoperative replacement/decompensated liver cirrhosis: Patient was seen and examined in the ICU. Overnight, he developed a fever with relative hypotension. He was started on broad-spectrum antibiotics and transferred to ICU. Patient has known allergy to Tylenol with hives. He was given 1 dose of Toradol. Chest x-ray shows no acute cardiopulmonary abnormality. 2D echo on 03/23/22 shows EF of 65 to 70%, dilated left atrium He complains of feeling cold. He has had Kim catheter inserted, call temperature 101.8 F. He denied any chest pain or dizziness or palpitations or nausea. His last bowel movement was about 4 days ago. Objective Data Objective Data Vital Signs: Vital Signs Temp Pulse Resp BP Pulse Ox 101.8 F H 117 H 20 H 92/54 L 92 03/24/22 06:10 03/24/22 06:10 03/24/22 06:10 03/24/22 06:10 03/24/22 06:10 Oxygen Flow Rate (L/min) 5 Oxygen Delivery Method Nasal Cannula Weight: 76.067 kg Body Mass Index (BMI) 24.7 Intake & Output: Intake and Output for Last 24 Hours 03/22/22 03/23/22 03/24/22 23:59 23:59 23:59 Intake Total 3275.92 / 3675.92 675 / 675 Output Total 3975 / 3975 Balance -699.08 / -299.08 675 / 675 Lab / Micro Data Result Diagrams: 03/24/22 06:50 03/24/22 06:50 Labs: Laboratory Results - last 24 hr 03/23/22 06:45: WBC 2.0 L, RBC 3.78 L, Hgb 13.2, Hct 38.0 L, MCV 100.5 H, MCH 34.9 H, MCHC 34.7, RDW Std Deviation 56.9 H, RDW Coeff of Jose 15.2 H, Plt Count 112 L, MPV 8.6, Immature Gran % (Auto) 0.500, Neut % (Auto) 60.2, Lymph % (Auto) 10.3 L, [place] % (Auto) 24.1 H, Eos % (Auto) 3.4, Baso % (Auto) 1.5 H, Absolute Neuts (auto) 1.2 L, Absolute Lymphs (auto) 0.21 L, Nucleated RBC % 0, Differential Comment SCANNED, Diff Path Review February foll 03/23/22 06:45: PT 15.5 H, INR 1.3, APTT 33.4 03/23/22 06:45: Sodium 137, Potassium 3.8, Chloride 108 H, Carbon Dioxide 24.0, Anion Gap 5, BUN 10, Creatinine 0.75, Estim Creat Clear Calc 102.12, Est GFR (MDRD) Af Amer 135, Est GFR (MDRD) Non-Af 112, BUN/Creatinine Ratio 13.3, Glucose 100, Calcium 9.1, Magnesium 1.9, Total Bilirubin 2.20 H, Direct Bilirubin 1.16 H, AST 44 H, ALT 28, Alkaline Phosphatase 101, Total Protein 7.5, Albumin 2.9 L, Globulin 4.6 H 03/23/22 06:45: Blood Type A POSITIVE, Antibody Screen NEGATIVE 03/23/22 06:45: Phosphorus 3.2 03/24/22 00:29: Urine Color Yellow, Urine Clarity Clear, Urine pH 6.0, Ur Specific [place] 1.015, Urine Protein Negative, Urine Glucose (UA) Normal, Urine Ketones Negative, Urine Occult Blood Negative, Urine Nitrite Negative, Urine Bilirubin Negative, Urine Urobilinogen 8 H, Ur Leukocyte Esterase 500 H, Urine R BC 0 SEEN, Urine WBC 25-50 SEEN, Ur Squamous Epith Cells 0-5 SEEN, Urine Bacteria 1+, Urine Mucus 0 SEEN Radiography Diagnostic Testing: Radiology Impression Hip/Pelvis X-Ray 03/23/22 07:44 IMPRESSION: Displaced fracture of the right femoral neck. Gaseous distention and dilatation of bowel in the lower abdomen, which may reflect ileus or obstruction. Electronically Signed: Cherie Harp MD at 8:57 EDT , Chest X-Ray 03/23/22 08:18 IMPRESSION: No acute cardiopulmonary process identified. Electronically Signed: Cherie Harp MD at 8:55 EDT , Echocardiogram 03/23/22 08:34 Interpretation Summary Preserved LV and RV systolic function, grossly normal valves except for mild calcification of the aortic valve leaflets. No pericardial effusion No regional wall motion abnormality appreciated Left atrium is mildly dilated at 4.1 cm in transverse diameter. Inferior vena cava appears normal. No prior echo report is available for comparison. Preserved LV and RV systolic function, grossly normal valves except for mild calcification of the aortic valve leaflets. No pericardial effusion No regional wall motion abnormality appreciated Left atrium is mildly dilated at 4.1 cm in transverse diameter. Inferior vena cava appears normal. No prior echo report is available for comparison. Ordering Physician: Cameron Solo Referring Physician: Megan Mai Performed By: Ramesh Pacheco RCS Hip X-Ray 03/23/22 12:25 IMPRESSION: Satisfactory postoperative alignment of right hip arthroplasty. Electronically Signed: Cherie Harp MD at 14:07 EDT , Physical Exam Narrative Physical exam: General: Alert, Oriented x3, Cooperative, In mild respiratory distress, on 8 L of oxygen HEENT: Atraumatic Oral: Moist Mucosa Neck: Supple Lungs: Diminished to auscultation at the lung bases Cardiovascular: HS I+II, regular, no murmurs Abdomen: Bowel Sounds Present, Soft, Non Tender Extremities: No edema, right hip fracture dressing intact, no erythema around the wound Neurological: Grossly intact Psych/Mental Status: Appropriate Const Constitutional Narrative: Upper middle-aged white male who appears older than stated age, sitting up in bed straight cathing himself, appears comfortable nontoxic Eyes Eyes Narrative: No scleral icterus Neck Neck Narrative: Trachea midline, no thyroid enlargement Resp Resp Narrative: Diffusely diminished but clear GI GI Narrative: No fluid wave, mild splenomegaly Extremity Extremity Narrative: Right lower extremity shortened externally rotated, decreased lean muscle mass Neuro Neuro Narrative: Right lower extremity foot drop with what appears to be a plantar flexion contracture and decreased sensation in his right lower extremity and foot no other significant abnormalities noted, upper extremity strength is good Psych Psych Narrative: Pleasant and appropriately interactive Assessment & Plan Assessment/Plan (1) Closed right hip fracture: (2) Right foot drop: (3) Gait abnormality: PLAN: Plan 1. Sepsis likely secondary to acute UTI, secondary to intermittent self- catheterization Patient's UA (03/24/22) was very mildly suggestive with positive leukocyte esterase and +1 bacteria, WBC 25-50. Started on broad-spectrum antibiotics We will continue monitoring in ICU Toradol as needed with IV PPI and sucralfate to prevent NSAID induced gastritis 2. Relative hypotension, home diltiazem and lisinopril on hold 3. Postop day #1 status post right Ivan arthroplasty, Pain is fairly controlledPatient presented with an acute femoral neck fracture secondary to mechanical fall in a patient with chronic right foot drop. Vitamin D levels are pending Continue on IV oxycodone and OxyContin Continue with PT/OT evaluations 4. Acute hypoxic respiratory failure probably secondary to Acute COPD exacerbation Patient is currently on 8 L of oxygen. Chest x-ray shows no acute abnormality Started on IV Solu-Medrol and scheduled bronchodilators Will continue to wean for SPO2 more than 93% 5. Chronic right foot drop secondary to lumbar radiculopathy with gait abnormalities PT/OT to evaluate, will also appreciate orthopedics recommendations 6. Liver cirrhosis secondary to chronic alcohol abuse/Chronic thrombocytopenia/leukopenia Status post esophageal varices banding, no evidence of acute bleeding 7. Rest of chronic medical conditions including GERD/restless leg syndrome/r esults ear/chronic pain/neurogenic bladder/nicotine abuse remained stable Home meds reviewed 8. DVT prophylaxis?on apixaban 9. GI prophylaxis?on PPI Charges/Coding Visit Charges Inpatient E&M: 57390 Subs Hosp L3
[2022-03-24 07:20] LABS: Differential Indicated SCAN CRITERIA MET
[2022-03-24 07:32] LABS: ALB/GLOB Ratio 0.6 RATIO (0.9-2.4); AST(SGOT) 46 U/L (15-37); Alanine Aminotransfer ALT/SGPT 19 U/L (16-61); Albumin, Serum 2.4 g/dL (3.2-5.0); Alkaline Phosphatase 92 U/L (45-117); Anion Gap 5 (5-15); BUN 8 mg/dL (7-18); BUN/Creat Ratio 10.5 RATIO (10-20); Calcium,Total 8.1 mg/dL (8.5-10.1); Chloride 105 mmol/L (98-107); Creatinine, Serum 0.76 mg/dL (0.70-1.30); EST Glomerular Filtration Rate 110 mL/min (>60); Est Glom Filt Rate - Afr Amer 133 mL/min (>60); Estimated Creatinine Clearance 100.78 ml/min; Glucose 109 mg/dL (74-106); Potassium 3.7 mmol/L (3.5-5.1); Protein, Total 6.4 g/dL (6.4-8.2); Sodium Level 136 mmol/L (136-145)
[2022-03-24 07:40] LABS: Lactic Acid 1.9 mmol/L (0.4-1.9)
--- NOTE | 2022-03-24 07:43 | NURSING ---
Pt transferred to ICU bed [address] Connelly's orders. Report given to NOHEMI Urbano.
[2022-03-24] MEDS: Lactated Ringers 1,000 ML 150 ML IV (07:52)
[2022-03-24 08:04] LABS: Differential Comment SCANNED
[2022-03-24] MEDS: Carbidopa/Levodopa 10/100 Tablet PO (08:16)
[2022-03-24] MEDS: Calcium Carbonate 500 MG Tablet PO ×3 (08:16→17:57)
[2022-03-24] MEDS: Ipratropium/Albuterol Sulfate 3 ML AMPUL.NEB INHALATION ×3 (08:41→19:36)
[2022-03-24] MEDS: Vancomycin IV 1,000 MG/200 ML BAG 200 MG IV ×2 (09:01→16:17)
[2022-03-24] MEDS: oxyCODONE HCl Cr 10 MG Tablet PO ×2 (09:39→21:39)
[2022-03-24] MEDS: rifAXIMin 550 MG Tablet PO ×2 (09:39→21:39)
[2022-03-24] MEDS: Lactulose 20 GM/30 ML UDC 10 GM PO ×2 (09:39→21:33)
[2022-03-24] MEDS: Gabapentin 300 MG Capsule PO ×2 (09:39→21:39)
[2022-03-24 11:24] LABS: M R Staph aureus DNA By PCR Negative (Negative); Probe Check PASS; Specimen Processing Control PASS
[2022-03-24] MEDS: Sucralfate 1 GM Tablet PO ×3 (11:27→21:38)
[2022-03-24] MEDS: Ferrous Sulfate 325 MG Tablet PO (21:38)
[2022-03-24] MEDS: Pramipexole Di-HCl 0.125 MG Tablet PO (21:39)
[2022-03-24] MEDS: Cholecalciferol (VIT D3) 25 MCG TABLET (1,000 UNITS) PO (21:39)
[2022-03-25] VITALS (26 sets, daily range): BP systolic 96–137; BP diastolic 48–73; PULSE 65–121; RESP 13–25; TEMP 36.4–37.4; O2SAT 90–97
[2022-03-25] MEDS: Vancomycin IV 1,000 MG/200 ML BAG 200 MG IV (00:30)
--- NOTE | 2022-03-25 01:43 | PCM.RX.CS ---
Consult Pharmacy has been consulted to manage selected antiobiotic: Vancomycin Type of Consult: Follow-up Labs: Sodium 136 mmol/L (136-145) 03/24/22 06:50 Potassium 3.7 mmol/L (3.5-5.1) 03/24/22 06:50 Chloride 105 mmol/L (98-107) 03/24/22 06:50 Carbon Dioxide 26.0 mmol/L (21.0-32.0) 03/24/22 06:50 Anion Gap 5 (5-15) 03/24/22 06:50 BUN 8 mg/dL (7-18) 03/24/22 06:50 Creatinine 0.76 mg/dL (0.70-1.30) 03/24/22 06:50 Est GFR (MDRD) Af Amer 133 mL/min (>60) 03/24/22 06:50 Est GFR (MDRD) Non-Af 110 mL/min (>60) 03/24/22 06:50 BUN/Creatinine Ratio 10.5 RATIO (10-20) 03/24/22 06:50 Glucose 109 mg/dL (74-106) H 03/24/22 06:50 Vancomycin Trough 12.0 ug/mL (5.0-15.0) 03/25/22 00:10 Microbiology: Microbiology 03/24/22 08:45 Mucosa - Nose Respiratory Panel (PCR) - Final Weight used for dosin kg Estimated Creatinine Clearance: 102 Goal Trough: 15-20 mcg/mL Pharmacy Plan for Drug Dosing: Pharmacy Service will continue to monitor and adjust dosing as required. TROUGH 12.0 AT 8 HRS (GOAL 15-20) INCREASE TO 1250MG Q8H AND FOLLOW UP TROUGH PRIOR TO 4TH DOSE Follow-Up Labs: Trough Vancomycin Labs to be done on [date and time ordered]: 03/26 @ 0800
[2022-03-25 04:33] LABS: Absolute Lymphocyte Count 0.19 X10^3/uL (0.83-4.51); Absolute Neutrophil Count 2.6 X10^3/uL (2.0-7.7); Hematocrit 31.7 % (40-54); Hemoglobin 10.6 g/dL (13.0-16.5); Lymphocyte # 0.19 X10^3/ul (0.83-4.51); Lymphocyte % 6.2 % (19-41); Mean Corp Hgb Conc 33.4 g/dL (32-36); Mean Corpuscular Hgb 34.1 pg (27.0-32.0); Mean Corpuscular Volume 101.9 fL (80-94); Mean Platelet Vol. 9.5 fl (6.2-12.0); Monocyte# 0.24 X10^3/uL; Monocyte% 7.8 % (0-10); NRBC Flagged by Analyzer 0 % (0-5); Neutrophil # 2.62 X10^3/uL (2.7-7.7); Neutrophil % 85.7 % (47-70); POSITIVE COUNT YES; POSITIVE DIFFERENTIAL YES; Platelet Count 91 K/mm3 (150-450); RBC Distribution Width CV 14.2 % (11.6-14.6); RBC Distribution Width SD 53.2 fl (35.1-43.9); Red Blood Count 3.11 M/mm3 (4.6-6.2); White Blood Count 3.1 K/mm3 (4.4-11.0)
[2022-03-25 04:39] LABS: Differential Indicated SCAN CRITERIA MET
[2022-03-25 04:56] LABS: ALB/GLOB Ratio 0.5 RATIO (0.9-2.4); AST(SGOT) 66 U/L (15-37); Alanine Aminotransfer ALT/SGPT 31 U/L (16-61); Albumin, Serum 2.3 g/dL (3.2-5.0); Alkaline Phosphatase 86 U/L (45-117); Anion Gap 6 (5-15); BUN 8 mg/dL (7-18); BUN/Creat Ratio 14.1 RATIO (10-20); Calcium,Total 8.6 mg/dL (8.5-10.1); Chloride 102 mmol/L (98-107); Creatinine, Serum 0.57 mg/dL (0.70-1.30); EST Glomerular Filtration Rate 154 mL/min (>60); Est Glom Filt Rate - Afr Amer 187 mL/min (>60); Estimated Creatinine Clearance 134.37 ml/min; Globulin 4.3 g/dL (2.2-4.2); Glucose 150 mg/dL (74-106); Potassium 3.4 mmol/L (3.5-5.1); Protein, Total 6.6 g/dL (6.4-8.2); Sodium Level 135 mmol/L (136-145)
[2022-03-25 05:37] LABS: Differential Comment SCANNED
[2022-03-25] MEDS: Potassium Chloride Oral Tablet 20 MEQ 40 MEQ PO (06:26)
--- NOTE | 2022-03-25 06:41 | PCM.PN.INT ---
Assessment & Plan Assessment/Plan (1) Sepsis: PLAN: Plan RECOMMENDATIONS: 1. Hold on aggressive fluid resuscitation 2. Continue with empiric broad-spectrum antimicrobials, pending culture results. 3. Wean supplemental oxygen as tolerated 4. Start scheduled bronchodilators and steroids. 5. Continue alcohol withdrawal protocol. 6. Continue lactulose and rifaximin. 7. Okay to leave the intensive care unit from my perspective IMPRESSIONS: 1. Sepsis The patient appears to be becoming septic with probable urinary tract source of infection with acute sepsis related organ dysfunction as evidenced by hyperbilirubinemia. The patient has a normal ejection fraction on echo along with an albumin of 2.9. Patient's blood pressures have been stable for over 24 hours. Patient remains on broad-spectrum antibiotics. Likely okay to transition to PCU. Management is complicated by underlying liver and hematologic disorders. 2. Acute right femoral neck fracture The patient is POD #2 status post right hip hemiarthroplasty. Continue routine postoperative management per orthopedic surgery. 3. Questionable history of COPD/chronic tobacco dependency The patient has a longstanding tobacco abuse history along with a questionable COPD diagnosis. Patient initiated on bronchodilators and steroids yesterday. Likely wean steroids tomorrow. Increased oxygen requirements likely secondary to translocation of fluid given low albumin 4. Chronic alcohol dependency with liver cirrhosis The patient has a known history of chronic alcohol dependency with associated liver disease. He does have a history of prior GI bleeds. Therefore, agree with continuing PPI therapy. In light of his ongoing alcohol dependency, recommend initiation of the alcohol withdrawal protocol. Thrombocytopenia likely secondary to liver cirrhosis also. 5. Hypertension/GERD/chronic pain/neurogenic bladder Complicates care, management, recovery and prognosis. Hold home antihypertensives for now. 6. Acute hypoxic respiratory insufficiency Encourage incentive spirometer. Okay to discontinue IV fluids given normotensive status for 24 hours. This note was generated with [employer] dictation software. It may contain incorrect words, spelling, and punctuation that were not noted in checking the note before signing. Subjective Subjective Patient did well overnight. No significant fever has been noted. Patient has remained hemodynamically stable. Patient is requiring 6 L nasal cannula, but is not reporting significant dyspnea. Patient did report a suspicion of a UTI for couple days prior to presentation, but was not on antibiotics. Objective Data Objective Data Vital Signs: Vital Signs Temp Pulse Resp BP Pulse Ox 36.7 C 66 13 120/57 L 93 06/20/22 05:00 03/25/22 05:00 03/25/22 05:00 03/25/22 05:00 03/25/22 05:00 Oxygen Flow Rate (L/min) 6 Oxygen Delivery Method Nasal Cannula Weight: 84.187 kg Body Mass Index (BMI) 24.7 Intake & Output: Intake and Output for Last 24 Hours 03/23/22 03/24/22 03/25/22 23:59 23:59 23:59 Intake Total 3275.92 / 3675.92 3438.75 / 3438.75 320 / 320 Output Total 3975 / 3975 1400 / 1850 1950 / 1950 Balance -699.08 / -299.08 2038.75 / 1588.75 -1630 / -1630 Lab / Micro Data Attestation: I reviewed the patient's lab results. Result Diagrams: 03/25/22 04:20 03/25/22 04:20 Labs: Laboratory Results - last 24 hr 03/24/22 06:50: WBC 4.1 L, RBC 3.13 L, Hgb 10.7 L, Hct 32.7 L, MCV 104.5 H, MCH 34.2 H, MCHC 32.7 D, RDW Std Deviation 58.1 H, RDW Coeff of Jose 15.1 H, Plt Count 106 L, MPV 8.5, Immature Gran % (Auto) 0.500, Neut % (Auto) 67.4, Lymph % (Auto) 8.6 L, [place] % (Auto) 20.1 H, Eos % (Auto) 2.9, Baso % (Auto) 0.5, Absolute Neuts (auto) 2.7, Absolute Lymphs (auto) 0.35 L, Nucleated RBC % 0, Differential Comment SCANNED, Diff Path Review February03/24/22 06:50: Sodium 136, Potassium 3.7, Chloride 105, Carbon Dioxide 26.0, Anion Gap 5, BUN 8, Creatinine 0.76, Estim Creat Clear Calc 100.78, Est GFR (MDRD) Af Amer 133, Est GFR (MDRD) Non-Af 110, BUN/Creatinine Ratio 10.5, Glucose 109 H, Calcium 8.1 L, Total Bilirubin 1.70 H, AST 46 H, ALT 19, Alkaline Phosphatase 92, Total Protein 6.4, Albumin 2.4 L, Globulin 4.0, Albumin/Globulin Ratio 0.6 L 03/24/22 06:50: Lactic Acid 1.9 03/24/22 07:35: MRSA (PCR) Negative 03/25/22 00:10: Vancomycin Trough 12.0 03/25/22 04:20: WBC 3.1 L, RBC 3.11 L, Hgb 10.6 L, Hct 31.7 L, MCV 101.9 H, MCH 34.1 H, MCHC 33.4, RDW Std Deviation 53.2 H, RDW Coeff of Jose 14.2, Plt Count 91 L, MPV 9.5, Immature Gran % (Auto) 0.300, Neut % (Auto) 85.7 H, Lymph % (Auto) 6.2 L, [place] % (Auto) 7.8, Eos % (Auto) 0.0, Baso % (Auto) 0.0, Absolute Neuts (auto) 2.6, Absolute Lymphs (auto) 0.19 L, Nucleated RBC % 0, Differential Comment SCANNED, Diff Path Review February03/25/22 04:20: Sodium 135 L, Potassium 3.4 L, Chloride 102, Carbon Dioxide 27.0, Anion Gap 6, BUN 8, Creatinine 0.57 L, Estim Creat Clear Calc 134.37, Est GFR (MDRD) Af Amer 187, Est GFR (MDRD) Non-Af 154, BUN/Creatinine Ratio 14.1, Glucose 150 H, Calcium 8.6, Total Bilirubin 1.40 H, AST 66 H, ALT 31, Alkaline Phosphatase 86, Total Protein 6.6, Albumin 2.3 L, Globulin 4.3 H, Albumin/Globulin Ratio 0.5 L Micro: Microbiology 03/24/22 08:45 Mucosa - Nose Respiratory Panel (PCR) - Final Radiography Diagnostic Testing: Radiology Impression Chest X-Ray 03/24/22 06:40 IMPRESSION: No acute findings. Electronically Signed: Hong Urbina MD at 7:37 EDT Reading Location ID and State: [facility] / [place] Tel , Service support , Rhythm Strip Rhythm Strip: Sinus Rhythm Physical Exam Const alert, oriented x3 and no apparent distress Constitutional Narrative: Appears older than stated age General Appearance: cooperative and frail HEENT normocephalic and head/scalp atraumatic Teeth and Gingiva: poor dentition Eyes PERRL, EOMs intact bilaterally and conjunctivae normal Neck supple General: trachea midline Chest inspection of chest normal Resp normal respiratory effort Effort and Inspection: Negative for actively coughing Auscultation: diminished lung sounds; Negative for rales, rhonchi or wheezes Cardio S1 normal heart sound, S2 normal heart sound, no murmurs, no rub and no gallops Rate: tachycardic GI Inspection: abdominal distention Palpation: Negative for tender, guarding or rigid Extremity no clubbing, cyanosis or edema Skin no rashes or lesions noted Neuro CN's II-XII intact bilaterally and no focal motor deficits Psych cooperative and affect normal Mood & Affect: flat affect Charges/Coding Visit Charges Inpatient E&M: 33983 Subs Hosp L3
[2022-03-25] MEDS: Ipratropium/Albuterol Sulfate 3 ML AMPUL.NEB INHALATION ×5 (06:52→22:57)
--- NOTE | 2022-03-25 07:20 | PCM.PN.ORT ---
Subjective Subjective Seen and examined doing okay this morning appears alert denies shortness of breath or chest pain pain controlled right hip. Objective Data Objective Data Vital Signs: Vital Signs Temp Pulse Resp BP Pulse Ox 97.8 F 76 17 126/70 H 96 03/25/22 06:00 03/25/22 06:00 03/25/22 06:00 03/25/22 06:00 03/25/22 06:00 Oxygen Flow Rate (L/min) 6 Oxygen Delivery Method Nasal Cannula Weight: 185 lb 9.6 oz Body Mass Index (BMI) 24.7 Intake & Output: Intake and Output for Last 24 Hours 03/23/22 03/24/22 03/25/22 23:59 23:59 23:59 Intake Total 3275.92 / 3675.92 3438.75 / 3438.75 320 / 320 Output Total 3975 / 3975 1400 / 1850 1950 / 1950 Balance -699.08 / -299.08 2038.75 / 1588.75 -1630 / -1630 Lab / Micro Data Result Diagrams: 03/25/22 04:20 03/25/22 04:20 Labs: Laboratory Results - last 24 hr 03/24/22 06:50: WBC 4.1 L, RBC 3.13 L, Hgb 10.7 L, Hct 32.7 L, MCV 104.5 H, MCH 34.2 H, MCHC 32.7 D, RDW Std Deviation 58.1 H, RDW Coeff of Jose 15.1 H, Plt Count 106 L, MPV 8.5, Immature Gran % (Auto) 0.500, Neut % (Auto) 67.4, Lymph % (Auto) 8.6 L, [place] % (Auto) 20.1 H, Eos % (Auto) 2.9, Baso % (Auto) 0.5, Absolute Neuts (auto) 2.7, Absolute Lymphs (auto) 0.35 L, Nucleated RBC % 0, Differential Comment SCANNED, Diff Path Review February03/24/22 06:50: Sodium 136, Potassium 3.7, Chloride 105, Carbon Dioxide 26.0, Anion Gap 5, BUN 8, Creatinine 0.76, Estim Creat Clear Calc 100.78, Est GFR (MDRD) Af Amer 133, Est GFR (MDRD) Non-Af 110, BUN/Creatinine Ratio 10.5, Glucose 109 H, Calcium 8.1 L, Total Bilirubin 1.70 H, AST 46 H, ALT 19, Alkaline Phosphatase 92, Total Protein 6.4, Albumin 2.4 L, Globulin 4.0, Albumin/Globulin Ratio 0.6 L 03/24/22 06:50: Lactic Acid 1.9 03/24/22 07:35: MRSA (PCR) Negative 03/25/22 00:10: Vancomycin Trough 12.0 03/25/22 04:20: WBC 3.1 L, RBC 3.11 L, Hgb 10.6 L, Hct 31.7 L, MCV 101.9 H, MCH 34.1 H, MCHC 33.4, RDW Std Deviation 53.2 H, RDW Coeff of Jose 14.2, Plt Count 91 L, MPV 9.5, Immature Gran % (Auto) 0.300, Neut % (Auto) 85.7 H, Lymph % (Auto) 6.2 L, [place] % (Auto) 7.8, Eos % (Auto) 0.0, Baso % (Auto) 0.0, Absolute Neuts (auto) 2.6, Absolute Lymphs (auto) 0.19 L, Nucleated RBC % 0, Differential Comment SCANNED, Diff Path Review February03/25/22 04:20: Sodium 135 L, Potassium 3.4 L, Chloride 102, Carbon Dioxide 27.0, Anion Gap 6, BUN 8, Creatinine 0.57 L, Estim Creat Clear Calc 134.37, Est GFR (MDRD) Af Amer 187, Est GFR (MDRD) Non-Af 154, BUN/Creatinine Ratio 14.1, Glucose 150 H, Calcium 8.6, Total Bilirubin 1.40 H, AST 66 H, ALT 31, Alkaline Phosphatase 86, Total Protein 6.6, Albumin 2.3 L, Globulin 4.3 H, Albumin/Globulin Ratio 0.5 L Micro: Microbiology 03/24/22 08:45 Mucosa - Nose Respiratory Panel (PCR) - Final Radiography Diagnostic Testing: Radiology Impression Chest X-Ray 03/24/22 06:40 IMPRESSION: No acute findings. Electronically Signed: Hong Urbina MD at 7:37 EDT Reading Location ID and State: [facility] / [place] Tel , Service support , Rhythm Strip Rhythm Strip: Sinus Rhythm Physical Exam Extremity Extremity Narrative: Right hip dressing intact remains sealed mild serous drainage on silver compartments soft chronic foot drop unchanged able to plantarflex palpable pedal pulses Assessment & Plan Assessment/Plan (1) Closed right hip fracture: PLAN: Postop day #2 right hip hemiarthroplasty PT OT weightbearing as tolerated hip precautions DVT prophylaxis SCDs BILL Caputo, hold when platelets less than 100 Dressing to be left in place for 5 days postop (03/28/22)unless seal becomes broken then may remove and begin showering if not showering clean incision daily with antibacterial soap and warm water at that time and replace with dry dressing. Angie check 2 weeks postop Sepsis likely UTI source continue antibiotics per primary Follow-up 2 weeks post op (2) Sepsis:
[2022-03-25 08:02] LABS: Vitamin D,25 Hydroxy 43.8 ng/mL
[2022-03-25] MEDS: Folic Acid 1 MG Tablet PO (08:34)
[2022-03-25] MEDS: Sucralfate 1 GM Tablet PO ×4 (08:34→23:28)
[2022-03-25] MEDS: Lactulose 20 GM/30 ML UDC 10 GM PO ×2 (08:35→23:27)
[2022-03-25] MEDS: Carbidopa/Levodopa 10/100 Tablet PO (08:35)
[2022-03-25] MEDS: Thiamine Hydrochloride 100 MG Tablet PO (08:35)
[2022-03-25] MEDS: Calcium Carbonate 500 MG Tablet PO ×3 (08:35→16:05)
[2022-03-25] MEDS: rifAXIMin 550 MG Tablet PO ×2 (08:37→23:27)
--- NOTE | 2022-03-25 08:41 | PN.HOSP_ITS ---
Subjective Subjective Follow-up on sepsis/postoperative replacement/decompensated liver cirrhosis: Patient was seen and examined. His fevers appears resolved. He is down to 4 L of oxygen. Denied any new complaints. Objective Data Objective Data Vital Signs: Vital Signs Temp Pulse Resp BP Pulse Ox 98.2 F 99 14 127/64 H 94 03/25/22 08:00 03/25/22 08:09 03/25/22 08:00 03/25/22 08:00 03/25/22 08:00 Oxygen Flow Rate (L/min) 4 Oxygen Delivery Method Nasal Cannula Weight: 84.187 kg Body Mass Index (BMI) 24.7 Intake & Output: Intake and Output for Last 24 Hours 03/23/22 03/24/22 03/25/22 23:59 23:59 23:59 Intake Total 3275.92 / 3675.92 3438.75 / 3438.75 320 / 320 Output Total 3975 / 3975 1400 / 1850 1950 / 1950 Balance -699.08 / -299.08 2038.75 / 1588.75 -1630 / -1630 Lab / Micro Data Result Diagrams: 03/25/22 04:20 03/25/22 04:20 Labs: Laboratory Results - last 24 hr 03/23/22 06:45: Vitamin D 25-Hydroxy 43.8 03/24/22 07:35: MRSA (PCR) Negative 03/25/22 00:10: Vancomycin Trough 12.0 03/25/22 04:20: WBC 3.1 L, RBC 3.11 L, Hgb 10.6 L, Hct 31.7 L, MCV 101.9 H, MCH 34.1 H, MCHC 33.4, RDW Std Deviation 53.2 H, RDW Coeff of Jose 14.2, Plt Count 91 L, MPV 9.5, Immature Gran % (Auto) 0.300, Neut % (Auto) 85.7 H, Lymph % (Auto) 6.2 L, [place] % (Auto) 7.8, Eos % (Auto) 0.0, Baso % (Auto) 0.0, Absolute Neuts ( auto) 2.6, Absolute Lymphs (auto) 0.19 L, Nucleated RBC % 0, Differential Com ment SCANNED, Diff Path Review February03/25/22 04:20: Sodium 135 L, Potassium 3.4 L, Chloride 102, Carbon Dioxide 27.0, Anion Gap 6, BUN 8, Creatinine 0.57 L, Estim Creat Clear Calc 134.37, Est GFR (MDRD) Af Amer 187, Est GFR (MDRD) Non-Af 154, BUN/Creatinine Ratio 14.1, Glucose 150 H, Calcium 8.6, Total Bilirubin 1.40 H, AST 66 H, ALT 31, Alkaline Phosphatase 86, Total Protein 6.6, Albumin 2.3 L, Globulin 4.3 H, Albumin/Globulin Ratio 0.5 L Micro: Microbiology 03/24/22 08:45 Mucosa - Nose Respiratory Panel (PCR) - Final Rhythm Strip Rhythm Strip: Sinus Rhythm Physical Exam Narrative Physical exam: General: Alert, Oriented x3, Cooperative, on 4 L of oxygen HEENT: Atraumatic Oral: Moist Mucosa Neck: Supple Lungs: Diminished to auscultation at the lung bases Cardiovascular: HS I+II, regular, no murmurs Abdomen: Bowel Sounds Present, Soft, Non Tender Extremities: No edema, right hip fracture dressing intact, no erythema around the wound Neurological: Grossly intact Psych/Mental Status: Appropriate Assessment & Plan Assessment/Plan (1) Closed right hip fracture: (2) Right foot drop: (3) Gait abnormality: PLAN: Plan 1. Sepsis likely secondary to acute UTI, secondary to intermittent self- catheterization Blood and urine cultures are pending Continue for now on IV meropenem and vancomycin for now Discontinue Toradol as patient has no more fevers 2. Relative hypotension, blood pressure appears improved We will continue to monitor today and hold Cardizem and lisinopril 3. POD#2 status post right Ivan arthroplasty, Pain is fairly controlled Patient presented with an acute femoral neck fracture secondary to mechanical fall in a patient with chronic right foot drop. Vitamin D levels is 43.8 Continue on PO oxycodone and OxyContin Continue with PT/OT evaluations 4. Acute hypoxic respiratory failure probably secondary to Acute COPD exacerbation, improving Patient is currently on 4 L of oxygen. Chest x-ray shows no acute abnormality Continue on IV Solu-Medrol and scheduled bronchodilators Will continue to wean for SPO2 more than 93% 5. Hypokalemia, potassium is 3.4, replace, recheck in a.m. 6. Chronic right foot drop secondary to lumbar radiculopathy with gait abnormalities PT/OT to evaluate, will also appreciate orthopedics recommendations 7. Liver cirrhosis secondary to chronic alcohol abuse/chronic thrombo cytopenia/leukopenia Status post esophageal varices banding, no evidence of acute bleeding 8. Rest of chronic medical conditions including GERD/restless leg syndrome/results ear/chronic pain/neurogenic bladder/nicotine abuse remained stable Home meds reviewed 9. DVT prophylaxis?on apixaban 10. GI prophylaxis?on PPI Will transfer out of ICU to PCU. Charges/Coding Visit Charges Inpatient E&M: 26890 Subs Hosp L2
[2022-03-25] MEDS: Gabapentin 300 MG Capsule PO ×2 (09:53→23:32)
[2022-03-25] MEDS: oxyCODONE HCl Cr 10 MG Tablet PO ×2 (09:53→23:31)
--- NOTE | 2022-03-25 10:44 | CASEMGMT ---
Social Work Met with patient in room to follow up with discharge planning. This social studies department chair broaching topic of senior living placement. Patient declining senior living placement and plans to discharge to home with spouse. Patient reports that family is working on building a ramp for patient. Patient plans to have outpatient therapy through [facility] is [place], [place]. Patient denies concerns on returning to home. Patient aware of concerns and benefits to patient if patient would transition to a fdc facility. Patient choosing to discharge to the community with spouse. Patient reports that main mobile phone salesperson is patient spouse and that team is able to reach out to spouse. Telephone call to commercial driver's license driverMariela. No answer. Voicemail left for RN OPAL to follow for further discharge planning. Tanner Tristan MSW, [employer]PA-S
[2022-03-25 13:23] LABS: Pathologist Review Reviewed
[2022-03-25 13:24] LABS: Pathologist Review Reviewed
[2022-03-25 13:32] LABS: Pathologist Review Reviewed
--- NOTE | 2022-03-25 13:59 | PCM.PN.ORT ---
Objective Data Objective Data Vital Signs: Vital Signs Temp Pulse Resp BP Pulse Ox 98.0 F 102 H 17 98/73 92 03/25/22 13:00 03/25/22 13:00 03/25/22 13:00 03/25/22 13:00 03/25/22 13:00 Oxygen Flow Rate (L/min) 2 Oxygen Delivery Method Nasal Cannula Weight: 185 lb 9.6 oz Body Mass Index (BMI) 24.7 Intake & Output: Intake and Output for Last 24 Hours 03/23/22 03/24/22 03/25/22 23:59 23:59 23:59 Intake Total 3275.92 / 3675.92 3438.75 / 3438.75 1545 / 1545 Output Total 3975 / 3975 1400 / 1850 2950 / 2950 Balance -699.08 / -299.08 2038.75 / 1588.75 -1405 / -1405 Lab / Micro Data Result Diagrams: 03/25/22 04:20 03/25/22 04:20 Labs: Laboratory Results - last 24 hr 03/23/22 06:45: Diff Path Review Reviewed 03/23/22 06:45: Vitamin D 25-Hydroxy 43.8 03/24/22 06:50: Diff Path Review Reviewed 03/25/22 00:10: Vancomycin Trough 12.0 03/25/22 04:20: WBC 3.1 L, RBC 3.11 L, Hgb 10.6 L, Hct 31.7 L, MCV 101.9 H, MCH 34.1 H, MCHC 33.4, RDW Std Deviation 53.2 H, RDW Coeff of Jose 14.2, Plt Count 91 L, MPV 9.5, Immature Gran % (Auto) 0.300, Neut % (Auto) 85.7 H, Lymph % (Auto) 6.2 L, [place] % (Auto) 7.8, Eos % (Auto) 0.0, Baso % (Auto) 0.0, Absolute Neuts (auto) 2.6, Absolute Lymphs (auto) 0.19 L, Nucleated RBC % 0, Differential Comment SCANNED, Diff Path Review Reviewed 03/25/22 04:20: Sodium 135 L, Potassium 3.4 L, Chloride 102, Carbon Dioxide 27.0, Anion Gap 6, BUN 8, Creatinine 0.57 L, Estim Creat Clear Calc 134.37, Est GFR (MDRD) Af Amer 187, Est GFR (MDRD) Non-Af 154, BUN/Creatinine Ratio 14.1, Glucose 150 H, Calcium 8.6, Total Bilirubin 1.40 H, AST 66 H, ALT 31, Alkaline Phosphatase 86, Total Protein 6.6, Albumin 2.3 L, Globulin 4.3 H, Albumin/Globulin Ratio 0.5 L Micro: Microbiology 03/24/22 22:00 Sputum, Expectorated/Coughed Gram Stain - Final 03/24/22 22:00 Sputum, Expectorated/Coughed Respiratory Culture - Preliminary Appears to be normal respiratory rosi. Further studies to follow. 03/24/22 00:29 Urine Catheter - Catheter Urine Culture - Preliminary GNR lactose sheet metal technician 03/24/22 08:45 Mucosa - Nose Respiratory Panel (PCR) - Final Rhythm Strip Rhythm Strip: Sinus Rhythm Assessment & Plan Assessment/Plan (1) Right foot drop: PLAN: In regards to chronic right foot drop recommend ankle-foot orthosis (AFO), as dropfoot was a cause for this fall. To minimize further falls AFO was ordered immediately postop. I was able to bring his foot into a neutral posture while he was under anesthesia without undue strain.
--- NOTE | 2022-03-25 16:01 | CASEMGMT ---
Addendum entered by Mariela Domínguez 03/25/22 16:57: Call received back from [facility]. They are able to accept pt, but earliest opening for SOC is Friday. NOHEMI JOSEPH to f/u tomorrow re: if Sat SOC is appropriate, as this would be dependent upon when pt discharges from [facility]. If SOC on Friday is out too far, then referral will need to be made to another agency. Original Note: NOHEMI JOSEPH NOTE: NOHEMI JOSEPH to room. Introduced self and role. Pt states he would rather have someone come to his home initially for therapy and then would like to transition to OP therapy @ [facility] ?Pt was provided with list of?HHC providers including quality and resource use data and consistent with the patient's preferred geographic region, medical needs, and insurance network. Pt states he does not have a preference and states RN OPAL can place call to his . RN OPAL spoke w/ while in room w/pt. states she also prefers HHC initially. She does not have a preference of HHC agencies either. When made aware [facility] has HHC, she states to go through [facility] . [facility] and referral made. Awaiting response re: acceptance. Ravi FERRELL RN, CM
[2022-03-25] MEDS: Ferrous Sulfate 325 MG Tablet PO (23:25)
[2022-03-25] MEDS: Cholecalciferol (VIT D3) 25 MCG TABLET (1,000 UNITS) PO (23:26)
[2022-03-25] MEDS: Pramipexole Di-HCl 0.125 MG Tablet PO (23:26)
[2022-03-25] MEDS: 0.9% Saline Lock 10 ML Syringe IV (23:44)
[2022-03-26] VITALS (19 sets, daily range): BP systolic 102–136; BP diastolic 53–86; PULSE 88–113; RESP 16–20; TEMP 36.1–36.8; O2SAT 92–94
[2022-03-26] MEDS: dilTIAZem CD 240 MG Capsule PO ×2 (02:11→21:46)
[2022-03-26] MEDS: Sucralfate 1 GM Tablet PO ×3 (06:01→16:37)
[2022-03-26] MEDS: Ipratropium/Albuterol Sulfate 3 ML AMPUL.NEB INHALATION ×4 (07:13→23:21)
--- NOTE | 2022-03-26 08:05 | PN.CC_ITS ---
Assessment & Plan Assessment/Plan (1) Sepsis: PLAN: Plan RECOMMENDATIONS: 1. Could consider gentle diuresis 2. Likely okay to transition to p.o. antibiotics 3. Wean supplemental oxygen as tolerated 4. Start scheduled bronchodilators. Will attempt discontinue steroids 5. Continue alcohol withdrawal protocol. 6. Continue lactulose and rifaximin. 7. Walking oximetry prior to discharge IMPRESSIONS: 1. Sepsis The patient appears to be becoming septic with probable urinary tract source of infection with acute sepsis related organ dysfunction as evidenced by hyperbilirubinemia. The patient has a normal ejection fraction on echo along with an albumin of 2.9. Patient's blood pressures have been stable for over 24 hours. Patient remains on broad-spectrum antibiotics. Cultures are showing only contaminants. Likely okay to transition to p.o. antibiotics and complete 7 total days. Management is complicated by underlying liver and hematologic disorders. 2. Acute right femoral neck fracture The patient is POD #3 status post right hip hemiarthroplasty. Continue routine postoperative management per orthopedic surgery. 3. Questionable history of COPD/chronic tobacco dependency The patient has a longstanding tobacco abuse history along with a questionable COPD diagnosis. No wheezing noted on exam. We will continue with bronchodilators, but discontinue steroids. Steroids can decrease wound healing. Oxygen requirements have improved significantly with ambulation indicating probable component of atelectasis 4. Chronic alcohol dependency with liver cirrhosis The patient has a known history of chronic alcohol dependency with associated liver disease. He does have a history of prior GI bleeds. Theref ore, agree with continuing PPI therapy. In light of his ongoing alcohol dependency, recommend initiation of the alcohol withdrawal protocol. Thrombocytopenia likely secondary to liver cirrhosis also. 5. Hypertension/GERD/chronic pain/neurogenic bladder Complicates care, management, recovery and prognosis. Hold home antihypertensives for now. 6. Acute hypoxic respiratory insufficiency Encourage incentive spirometer. Possibly diurese gently over the next 24 to 48 hours. Continue ambulation as tolerated. Patient may benefit from a paracentesis to facilitate lung recruitment, but defer to hospitalist. This could be done as an outpatient. This note was generated with [employer] software. It may contain incorrect words, spelling, and punctuation that were not noted in checking the note before signing. Subjective Subjective Patient did okay yesterday and overnight. Patient subjectively feels improved. Patient was able to ambulate to the door and back without significant shortness of breath. Patient continues to work with therapy. Patient does not believe that his abdomen is more distended than normal. Patient has been using his colby ntive spirometer more often. Oxygen requirements have improved. Objective Data Objective Data Vital Signs: Vital Signs Temp Pulse Resp BP Pulse Ox 36.5 C L 109 H 20 H 136/75 H 94 03/26/22 07:00 03/26/22 07:40 03/26/22 07:40 03/26/22 07:00 03/26/22 07:40 Oxygen Flow Rate (L/min) 3 Oxygen Delivery Method Nasal Cannula Weight: 85.1 kg Body Mass Index (BMI) 24.7 Intake & Output: Intake and Output for Last 24 Hours 03/24/22 03/25/22 03/26/22 23:59 23:59 23:59 Intake Total 3438.75 / 3438.75 2530 / 2810 795 / 795 Output Total 1400 / 1850 3400 / 4150 1300 / 1300 Balance 2038.75 / 1588.75 -870 / -1340 -505 / -505 Lab / Micro Data Attestation: I reviewed the patient's lab results. (Morning labs are still pending) Result Diagrams: 03/25/22 04:20 03/25/22 04:20 Labs: Laboratory Results - last 24 hr 03/23/22 06:45: Diff Path Review Reviewed 03/24/22 06:50: Diff Path Review Reviewed 03/25/22 04:20: Diff Path Review Reviewed Micro: Microbiology 03/24/22 22:00 Sputum, Expectorated/Coughed Gram Stain - Final 03/24/22 22:00 Sputum, Expectorated/Coughed Respiratory Culture - Final Presumptive C albicans 03/24/22 00:29 Urine Catheter - Catheter Urine Culture - Final Escherichia coli 03/24/22 00:36 Blood Culture (Wb) - Left Forearm Blood Culture - Preliminary No growth in 48 hours. 03/24/22 00:31 Blood Culture (Wb) - Anticubital Left Blood Culture - Preliminary No growth in 48 hours. 03/24/22 08:45 Mucosa - Nose Respiratory Panel (PCR) - Final Rhythm Strip Rhythm Strip: Sinus Rhythm Physical Exam Const alert, oriented x3 and no apparent distress Constitutional Narrative: Appears older than stated age General Appearance: cooperative, ill appearing and frail HEENT normocephalic and head/scalp atraumatic Eyes PERRL, EOMs intact bilaterally and conjunctivae normal Neck supple General: trachea midline Chest inspection of chest normal Resp normal respiratory effort Effort and Inspection: tachypneic; Negative for actively coughing Auscultation: diminished lung sounds; Negative for rales, rhonchi or wheezes Cardio S1 normal heart sound, S2 normal heart sound, no murmurs, no rub and no gallops Rate: tachycardic GI GI Narrative: Abdominal distention appears to be stable Inspection: abdominal distention Palpation: Negative for tender, guarding or rigid Percussion: fluid wave Extremity no clubbing, cyanosis or edema Skin no rashes or lesions noted Neuro CN's II-XII intact bilaterally and no focal motor deficits Psych cooperative and affect normal Mood & Affect: flat affect Charges/Coding Visit Charges Inpatient E&M: 51438 Subs Hosp L2
[2022-03-26] MEDS: Senna/Docusate Sodium 1 Tablet 2 TABLET PO (08:32)
[2022-03-26] MEDS: Folic Acid 1 MG Tablet PO (08:33)
[2022-03-26] MEDS: Thiamine Hydrochloride 100 MG Tablet PO (08:33)
[2022-03-26] MEDS: Carbidopa/Levodopa 10/100 Tablet PO (08:33)
[2022-03-26 08:38] LABS: Absolute Neutrophil Count 4.5 X10^3/uL (2.0-7.7); Basophil# 0.01 X10^3/uL; Basophil% 0.2 % (0-1); Hematocrit 31.6 % (40-54); Hemoglobin 10.5 g/dL (13.0-16.5); Mean Corp Hgb Conc 33.2 g/dL (32-36); Mean Corpuscular Volume 102.3 fL (80-94); Mean Platelet Vol. 9.1 fl (6.2-12.0); Monocyte# 0.34 X10^3/uL; Monocyte% 6.8 % (0-10); NRBC Flagged by Analyzer 0 % (0-5); Neutrophil # 4.45 X10^3/uL (2.7-7.7); Neutrophil % 88.4 % (47-70); POSITIVE DIFFERENTIAL YES; Platelet Count 108 K/mm3 (150-450); RBC Distribution Width CV 14.5 % (11.6-14.6); RBC Distribution Width SD 54.3 fl (35.1-43.9); Red Blood Count 3.09 M/mm3 (4.6-6.2)
[2022-03-26] MEDS: Calcium Carbonate 500 MG Tablet PO ×3 (08:38→16:38)
[2022-03-26 08:47] LABS: Differential Indicated SCAN CRITERIA MET
[2022-03-26 09:13] LABS: ALB/GLOB Ratio 0.5 RATIO (0.9-2.4); AST(SGOT) 61 U/L (15-37); Alanine Aminotransfer ALT/SGPT 36 U/L (16-61); Albumin, Serum 2.3 g/dL (3.2-5.0); Alkaline Phosphatase 86 U/L (45-117); Anion Gap 6 (5-15); BUN 12 mg/dL (7-18); BUN/Creat Ratio 20.7 RATIO (10-20); Calcium,Total 9.5 mg/dL (8.5-10.1); Chloride 103 mmol/L (98-107); Creatinine, Serum 0.58 mg/dL (0.70-1.30); EST Glomerular Filtration Rate 151 mL/min (>60); Est Glom Filt Rate - Afr Amer 183 mL/min (>60); Estimated Creatinine Clearance 132.05 ml/min; Globulin 4.5 g/dL (2.2-4.2); Glucose 117 mg/dL (74-106); Potassium 3.6 mmol/L (3.5-5.1); Protein, Total 6.8 g/dL (6.4-8.2); Sodium Level 135 mmol/L (136-145); Vancomycin, Trough Level 18.9 ug/mL (5.0-15.0)
[2022-03-26 09:16] LABS: Platelet Estimate SLT DEC (ADEQ)
[2022-03-26 09:17] LABS: Red Cell Morphology NORM C+C NORMAL (NORM C&C)
[2022-03-26] MEDS: oxyCODONE HCl Cr 10 MG Tablet PO ×2 (09:35→21:53)
[2022-03-26] MEDS: rifAXIMin 550 MG Tablet PO ×2 (09:38→21:46)
[2022-03-26] MEDS: APIXABAN 2.5 MG TABLET PO ×2 (09:38→21:46)
[2022-03-26] MEDS: Ceftriaxone 1 GM/50 ML BAG IV (09:39)
[2022-03-26] MEDS: Lactulose 20 GM/30 ML UDC 10 GM PO ×2 (09:39→21:46)
[2022-03-26] MEDS: Gabapentin 300 MG Capsule PO ×2 (09:41→21:53)
--- NOTE | 2022-03-26 10:56 | CASEMGMT ---
Pt is still on 3L nc and per Dr. Mendez, will not discharge today. Call to Miranda at [facility] and she is updated. She states that SOC is still set for 03/30/22 but she will see if they can get PT into see him sooner. CM to follow. Jean Carlos SONG CM
--- NOTE | 2022-03-26 13:10 | PN.HOSP_ITS ---
Subjective Subjective Follow-up on sepsis/postoperative replacement/decompensated liver cirrhosis: Patient was seen and examined.?Denied any new complaints. He is currently on 3 L of oxygen. Objective Data Objective Data Vital Signs: Vital Signs Temp Pulse Resp BP Pulse Ox 98.2 F 101 H 19 H 109/61 94 03/26/22 09:32 03/26/22 11:24 03/26/22 11:24 03/26/22 09:32 03/26/22 09:32 Oxygen Flow Rate (L/min) 3 Oxygen Delivery Method Nasal Cannula Weight: 85.1 kg Body Mass Index (BMI) 24.7 Intake & Output: Intake and Output for Last 24 Hours 03/24/22 03/25/22 03/26/22 23:59 23:59 23:59 Intake Total 3438.75 / 3438.75 2530 / 2810 1075 / 1075 Output Total 1400 / 1850 3400 / 4150 1300 / 1300 Balance 2038.75 / 1588.75 -870 / -1340 -225 / -225 Lab / Micro Data Result Diagrams: 03/26/22 08:20 03/26/22 08:20 Labs: Laboratory Results - last 24 hr 03/23/22 06:45: Diff Path Review Reviewed 03/24/22 06:50: Diff Path Review Reviewed 03/25/22 04:20: Diff Path Review Reviewed 03/26/22 08:20: WBC 5.0, RBC 3.09 L, Hgb 10.5 L, Hct 31.6 L, MCV 102.3 H, MCH 34.0 H, MCHC 33.2, RDW Std Deviation 54.3 H, RDW Coeff of Jose 14.5, Plt Count 108 L, MPV 9.1, Immature Gran % (Auto) 0.600, Neut % (Auto) 88.4 H, Lymph % (Auto) 4.0 L, [place] % (Auto) 6.8, Eos % (Auto) 0.0, Baso % (Auto) 0.2, Absolute Neuts (auto) 4.5, Absolute Lymphs (auto) 0.20 L, Nucleated RBC % 0, Differential Comment , Platelet Estimate SLT DEC, RBC Morphology NORM C+C 03/26/22 08:20: Sodium 135 L, Potassium 3.6, Chloride 103, Carbon Dioxide 26.0, Anion Gap 6, BUN 12, Creatinine 0.58 L, Estim Creat Clear Calc 132.05, Est GFR (MDRD) Af Amer 183, Est GFR (MDRD) Non-Af 151, BUN/Creatinine Ratio 20.7 H, Glucose 117 H, Calcium 9.5, Total Bilirubin 1.00, AST 61 H, ALT 36, Alkaline Phosphatase 86, Total Protein 6.8, Albumin 2.3 L, Globulin 4.5 H, Albumin/Globulin Ratio 0.5 L 03/26/22 08:20: Vancomycin Trough 18.9 H Micro: Microbiology 03/24/22 22:00 Sputum, Expectorated/Coughed Gram Stain - Final 03/24/22 22:00 Sputum, Expectorated/Coughed Respiratory Culture - Final Presumptive C albicans 03/24/22 00:29 Urine Catheter - Catheter Urine Culture - Final Escherichia coli 03/24/22 00:36 Blood Culture (Wb) - Left Forearm Blood Culture - Preliminary No growth in 48 hours. 03/24/22 00:31 Blood Culture (Wb) - Anticubital Left Blood Culture - Preliminary No growth in 48 hours. 03/24/22 08:45 Mucosa - Nose Respiratory Panel (PCR) - Final Rhythm Strip Rhythm Strip: Sinus Rhythm Physical Exam Narrative Physical exam: General: Alert, Oriented x3, Cooperative, on 3L of oxygen HEENT: Atraumatic Oral: Moist Mucosa Neck: Supple Lungs: Diminished to auscultation at the lung bases Cardiovascular: HS I+II, regular, no murmurs Abdomen: Bowel Sounds Present, Soft, Non Tender Extremities: No edema, right hip fracture dressing intact, no erythema around the wound Neurological: Grossly intact Psych/Mental Status: Appropriate Assessment & Plan Assessment/Plan (1) Closed right hip fracture: (2) Right foot drop: (3) Gait abnormality: PLAN: Plan 1. Sepsis likely secondary to acute E. coli UTI, secondary to intermittent self- catheterization Blood cultures showed no growth. Urine cultures growing E. coli We will discontinue IV vancomycin and meropenem; continue on IV ceftriaxone 2. Relative hypotension, blood pressure appears improved Continue hold Cardizem and lisinopril 3. POD#3 status post right melissa-arthroplasty, pain is fairly controlled Patient presented with an acute femoral neck fracture secondary to mechanical fall in a patient with chronic right foot drop. Vitamin D levels is 43.8 Continue on PO oxycodone and OxyContin Continue with PT/OT evaluations 4. Acute hypoxic respiratory failure probably secondary to Acute COPD exacerbati on, improving Patient is currently on 3 L of oxygen. Chest x-ray shows no acute abnormality Off IV steroids, continue on scheduled bronchodilators Will continue to wean for SPO2 more than 93% 5. Hypokalemia, resolved 6. Chronic right foot drop secondary to lumbar radiculopathy with gait abnorma lities PT/OT to evaluate, will also appreciate orthopedics recommendations 7. Liver cirrhosis secondary to chronic alcohol abuse/chronic thrombocytopenia/leukopenia Status post esophageal varices banding, no evidence of acute bleeding 8. Rest of chronic medical conditions including GERD/restless leg syndrome/results ear/chronic pain/neurogenic bladder/nicotine abuse remained stable Home meds reviewed 9. DVT prophylaxis?on apixaban 10. GI prophylaxis?on PPI Charges/Coding Visit Charges Inpatient E&M: 27910 Subs Hosp L2
[2022-03-26] MEDS: Cholecalciferol (VIT D3) 25 MCG TABLET (1,000 UNITS) PO (21:45)
[2022-03-26] MEDS: Ferrous Sulfate 325 MG Tablet PO (21:46)
[2022-03-26] MEDS: Pramipexole Di-HCl 0.125 MG Tablet PO (21:46)
[2022-03-27] VITALS (22 sets, daily range): BP systolic 100–119; BP diastolic 49–69; PULSE 81–110; RESP 16–24; TEMP 36.6–37.3; O2SAT 91–96
[2022-03-27] MEDS: Ipratropium/Albuterol Sulfate 3 ML AMPUL.NEB INHALATION ×6 (03:38→22:25)
[2022-03-27 06:25] LABS: Absolute Lymphocyte Count 0.23 X10^3/uL (0.83-4.51); Basophil# 0.01 X10^3/uL; Basophil% 0.3 % (0-1); Eosinophil# 0.12 X10^3/uL; Eosinophils% 3.3 % (0-5); Hematocrit 29.3 % (40-54); Hemoglobin 9.6 g/dL (13.0-16.5); Lymphocyte # 0.23 X10^3/ul (0.83-4.51); Lymphocyte % 6.3 % (19-41); Mean Corp Hgb Conc 32.8 g/dL (32-36); Mean Corpuscular Hgb 33.7 pg (27.0-32.0); Mean Corpuscular Volume 102.8 fL (80-94); Mean Platelet Vol. 8.8 fl (6.2-12.0); Monocyte# 0.33 X10^3/uL; NRBC Flagged by Analyzer 0 % (0-5); Neutrophil # 2.98 X10^3/uL (2.7-7.7); Neutrophil % 80.8 % (47-70); POSITIVE DIFFERENTIAL YES; Platelet Count 119 K/mm3 (150-450); RBC Distribution Width CV 14.5 % (11.6-14.6); RBC Distribution Width SD 54.7 fl (35.1-43.9); Red Blood Count 2.85 M/mm3 (4.6-6.2); White Blood Count 3.7 K/mm3 (4.4-11.0)
[2022-03-27 06:28] LABS: Differential Indicated SCAN CRITERIA MET
[2022-03-27 06:44] LABS: Differential Comment SCANNED
[2022-03-27 07:00] LABS: ALB/GLOB Ratio 0.5 RATIO (0.9-2.4); AST(SGOT) 76 U/L (15-37); Alanine Aminotransfer ALT/SGPT 48 U/L (16-61); Albumin, Serum 2.1 g/dL (3.2-5.0); Alkaline Phosphatase 86 U/L (45-117); Anion Gap 2 (5-15); BUN 14 mg/dL (7-18); BUN/Creat Ratio 20.6 RATIO (10-20); Calcium,Total 9.2 mg/dL (8.5-10.1); Chloride 104 mmol/L (98-107); Creatinine, Serum 0.68 mg/dL (0.70-1.30); EST Glomerular Filtration Rate 126 mL/min (>60); Est Glom Filt Rate - Afr Amer 152 mL/min (>60); Estimated Creatinine Clearance 112.63 ml/min; Globulin 3.9 g/dL (2.2-4.2); Glucose 97 mg/dL (74-106); Potassium 3.1 mmol/L (3.5-5.1); Sodium Level 137 mmol/L (136-145)
--- NOTE | 2022-03-27 08:27 | PN.CC_ITS ---
Assessment & Plan Assessment/Plan (1) Sepsis: PLAN: Plan RECOMMENDATIONS: 1. Diuresis following potassium repletion 2. Likely okay to transition to p.o. antibiotics 3. Wean supplemental oxygen as tolerated 4. Continue scheduled bronchodilators. Continue to hold steroids 5. Possible chest x-ray if continues to worsen 6. Continue lactulose and rifaximin. 7. Walking oximetry prior to discharge IMPRESSIONS: 1. Sepsis The patient appears to be becoming septic with probable urinary tract source of infection with acute sepsis related organ dysfunction as evidenced by hyperbilirubinemia. The patient has a normal ejection fraction on echo along with an albumin of 2.9. Patient's blood pressures have been stable for over 24 hours. 2. Acute right femoral neck fracture The patient is POD #4 status post right hip hemiarthroplasty. Continue routine postoperative management per orthopedic surgery. 3. Questionable history of COPD/chronic tobacco dependency The patient has a longstanding tobacco abuse history along with a questionable COPD diagnosis. No wheezing noted on exam. We will continue with bronchodilators, but discontinue steroids. Steroids can decrease wound healing. Oxygen has worsened a little bit over the last 24 hours. Low clinical suspicion that this would be secondary to steroid removal as these would still be effective 24 to 48 hours afterwards. Will attempt to diurese. If patient does not respond, chest x-ray for possible pleural effusion 4. Chronic alcohol dependency with liver cirrhosis The patient has a known history of chronic alcohol dependency with associated liver disease. He does have a history of prior GI bleeds. Therefore, agree with continuing PPI therapy. In light of his ongoing alcohol dependency, recommend initiation of the alcohol withdrawal protocol. Thro mbocytopenia likely secondary to liver cirrhosis also. 5. Hypertension/GERD/chronic pain/neurogenic bladder Complicates care, management, recovery and prognosis. Hold home antihypertensives for now. 6. Acute hypoxic respiratory insufficiency Encourage incentive spirometer. Will order diuresis for this evening. Continue ambulation as tolerated. Patient may benefit from a paracentesis to facilitate lung recruitment, but defer to hospitalist. This could be done as an outpatient. This note was generated with [employer] software. It may contain incorrect words, spelling, and punctuation that were not noted in checking the note before signing. Subjective Subjective Patient did okay overnight. Patient did have some increased FiO2 requirements with sleep. Patient overall feels subjectively that he is doing okay with no real change compared to yesterday. Objective Data Objective Data Potassium repletion already ordered by hospitalist Vital Signs: Vital Signs Temp Pulse Resp BP Pulse Ox 36.7 C 98 20 H 106/58 L 92 03/27/22 05:30 03/27/22 07:52 03/27/22 07:13 03/27/22 05:30 03/27/22 07:13 Oxygen Flow Rate (L/min) 5 Oxygen Delivery Method Nasal Cannula Weight: 84.9 kg Body Mass Index (BMI) 24.7 Intake & Output: Intake and Output for Last 24 Hours 03/25/22 03/26/22 03/27/22 23:59 23:59 23:59 Intake Total 2530 / 2810 2075 / 2575 700 / 700 Output Total 3400 / 4150 2575 / 3450 1375 / 1375 Balance -870 / -1340 -500 / -875 -675 / -675 Lab / Micro Data Attestation: I reviewed the patient's lab results. Result Diagrams: 03/27/22 05:25 03/27/22 05:25 Labs: Laboratory Results - last 24 hr 03/26/22 08:20: WBC 5.0, RBC 3.09 L, Hgb 10.5 L, Hct 31.6 L, MCV 102.3 H, MCH 34.0 H, MCHC 33.2, RDW Std Deviation 54.3 H, RDW Coeff of Jose 14.5, Plt Count 108 L, MPV 9.1, Immature Gran % (Auto) 0.600, Neut % (Auto) 88.4 H, Lymph % (Auto) 4.0 L, [place] % (Auto) 6.8, Eos % (Auto) 0.0, Baso % (Auto) 0.2, Absolute Neuts (auto) 4.5, Absolute Lymphs (auto) 0.20 L, Nucleated RBC % 0, Differential Comment , Platelet Estimate SLT DEC, RBC Morphology NORM C+C 03/26/22 08:20: Sodium 135 L, Potassium 3.6, Chloride 103, Carbon Dioxide 26.0, Anion Gap 6, BUN 12, Creatinine 0.58 L, Estim Creat Clear Calc 132.05, Est GFR (MDRD) Af Amer 183, Est GFR (MDRD) Non-Af 151, BUN/Creatinine Ratio 20.7 H, Glucose 117 H, Calcium 9.5, Total Bilirubin 1.00, AST 61 H, ALT 36, Alkaline Phosphatase 86, Total Protein 6.8, Albumin 2.3 L, Globulin 4.5 H, Albumin/Globulin Ratio 0.5 L 03/26/22 08:20: Vancomycin Trough 18.9 H 03/27/22 05:25: WBC 3.7 L, RBC 2.85 L, Hgb 9.6 L, Hct 29.3 L, MCV 102.8 H, MCH 33.7 H, MCHC 32.8, RDW Std Deviation 54.7 H, RDW Coeff of Jose 14.5, Plt Count 119 L, MPV 8.8, Immature Gran % (Auto) 0.300, Neut % (Auto) 80.8 H, Lymph % (Auto) 6.3 L, [place] % (Auto) 9.0, Eos % (Auto) 3.3, Baso % (Auto) 0.3, Absolute Neuts (auto) 3.0, Absolute Lymphs (auto) 0.23 L, Nucleated RBC % 0, Differential Comment SCANNED, Diff Path Review February03/27/22 05:25: Sodium 137, Potassium 3.1 L, Chloride 104, Carbon Dioxide 31.0, Anion Gap 2 L, BUN 14, Creatinine 0.68 L, Estim Creat Clear Calc 112.63, Est GFR (MDRD) Af Amer 152, Est GFR (MDRD) Non-Af 126, BUN/Creatinine Ratio 20.6 H, Glucose 97, Calcium 9.2, Total Bilirubin 0.90, AST 76 H, ALT 48, Alkaline Phosphatase 86, Total Protein 6.0 L, Albumin 2.1 L, Globulin 3.9, Albumin/Sandy bulin Ratio 0.5 L Micro: Microbiology 03/24/22 22:00 Sputum, Expectorated/Coughed Gram Stain - Final 03/24/22 22:00 Sputum, Expectorated/Coughed Respiratory Culture - Final Presumptive C albicans 03/24/22 00:29 Urine Catheter - Catheter Urine Culture - Final Escherichia coli 03/24/22 00:36 Blood Culture (Wb) - Left Forearm Blood Culture - Preliminary No growth in 48 hours. 03/24/22 00:31 Blood Culture (Wb) - Anticubital Left Blood Culture - Preliminary No growth in 48 hours. 03/24/22 08:45 Mucosa - Nose Respiratory Panel (PCR) - Final Rhythm Strip Rhythm Strip: Sinus Rhythm Physical Exam Const alert, oriented x3 and no apparent distress Constitutional Narrative: Appears older than stated age General Appearance: cooperative and frail HEENT normocephalic and head/scalp atraumatic Eyes PERRL, EOMs intact bilaterally and conjunctivae normal Neck supple General: trachea midline Chest inspection of chest normal Resp normal respiratory effort Effort and Inspection: tachypneic; Negative for actively coughing Auscultation: diminished lung sounds; Negative for rales, rhonchi or wheezes Cardio S1 normal heart sound, S2 normal heart sound, no murmurs, no rub and no gallops Rate: tachycardic GI GI Narrative: Abdominal distention appears to be stable Inspection: abdominal distention Palpation: Negative for tender, guarding or rigid Percussion: fluid wave Extremity no clubbing, cyanosis or edema Skin no rashes or lesions noted Neuro CN's II-XII intact bilaterally and no focal motor deficits Psych cooperative and affect normal Mood & Affect: flat affect Charges/Coding Visit Charges Inpatient E&M: 95076 Subs Hosp L3
[2022-03-27] MEDS: APIXABAN 2.5 MG TABLET PO (10:08)
[2022-03-27] MEDS: rifAXIMin 550 MG Tablet PO ×2 (10:08→21:54)
[2022-03-27] MEDS: Thiamine Hydrochloride 100 MG Tablet PO (10:08)
[2022-03-27] MEDS: Folic Acid 1 MG Tablet PO (10:09)
[2022-03-27] MEDS: Carbidopa/Levodopa 10/100 Tablet PO (10:09)
[2022-03-27] MEDS: Lactulose 20 GM/30 ML UDC 10 GM PO ×2 (10:09→21:53)
[2022-03-27] MEDS: Potassium Chloride Oral Tablet 20 MEQ 40 MEQ PO ×2 (10:16→17:16)
[2022-03-27] MEDS: Pantoprazole Sodium 40 MG Tablet PO (10:18)
[2022-03-27] MEDS: Calcium Carbonate 500 MG Tablet PO ×3 (10:18→17:19)
[2022-03-27] MEDS: oxyCODONE HCl Cr 10 MG Tablet PO ×2 (10:18→21:54)
[2022-03-27] MEDS: Gabapentin 300 MG Capsule PO ×2 (10:18→21:59)
[2022-03-27] MEDS: Ceftriaxone 1 GM/50 ML BAG IV (10:26)
--- NOTE | 2022-03-27 12:04 | US_ITS ---
STUDY: ABDOMINAL ULTRASOUND - RIGHT UPPER QUADRANT REASON FOR VISIT: Male, 61 years old ascites check TECHNIQUE: Limited ultrasound assessment of the abdomen for ascites. TECHNICAL QUALITY: Adequate. COMPARISON: None. FINDINGS: No significant ascites fluid for drainage. US/Abdomen Limited IMPRESSION: No significant ascites fluid for drainage. Electronically Signed: Abdi Duran, at 13:25 EDT ,
--- NOTE | 2022-03-27 12:05 | PN.HOSP_ITS ---
Subjective Subjective Follow-up on sepsis/postoperative replacement/decompensated liver cirrhosis: Patient was seen and examined.? No acute events overnight. He is currently on 5 L of oxygen. Objective Data Objective Data Vital Signs: Vital Signs Temp Pulse Resp BP Pulse Ox FiO2 98.9 F 99 18 100/63 93 94 03/27/22 11:59 03/27/22 11:59 03/27/22 11:59 03/27/22 11:59 03/27/22 11:59 03/27/22 10:28 Oxygen Flow Rate (L/min) 5 Oxygen Delivery Method Nasal Cannula Weight: 84.9 kg Body Mass Index (BMI) 24.7 Intake & Output: Intake and Output for Last 24 Hours 03/25/22 03/26/22 03/27/22 23:59 23:59 23:59 Intake Total 2530 / 2810 2075 / 2575 700 / 700 Output Total 3400 / 4150 2575 / 3450 1375 / 1375 Balance -870 / -1340 -500 / -875 -675 / -675 Lab / Micro Data Result Diagrams: 03/27/22 05:25 03/27/22 05:25 Labs: Laboratory Results - last 24 hr 03/27/22 05:25: WBC 3.7 L, RBC 2.85 L, Hgb 9.6 L, Hct 29.3 L, MCV 102.8 H, MCH 33.7 H, MCHC 32.8, RDW Std Deviation 54.7 H, RDW Coeff of Jose 14.5, Plt Count 119 L, MPV 8.8, Immature Gran % (Auto) 0.300, Neut % (Auto) 80.8 H, Lymph % (Auto) 6.3 L, [place] % (Auto) 9.0, Eos % (Auto) 3.3, Baso % (Auto) 0.3, Absolute Neuts (auto) 3.0, Absolute Lymphs (auto) 0.23 L, Nucleated RBC % 0, Differential Comment SCANNED, Diff Path Review February03/27/22 05:25: Sodium 137, Potassium 3.1 L, Chloride 104, Carbon Dioxide 31.0, Anion Gap 2 L, BUN 14, Creatinine 0.68 L, Estim Creat Clear Calc 112.63, Est GFR (MDRD) Af Amer 152, Est GFR (MDRD) Non-Af 126, BUN/Creatinine Ratio 20.6 H, Glucose 97, Calcium 9.2, Total Bilirubin 0.90, AST 76 H, ALT 48, Alkaline Phosphatase 86, Total Protein 6.0 L, Albumin 2.1 L, Globulin 3.9, Albumin/Globulin Ratio 0.5 L Micro: Microbiology 03/24/22 22:00 Sputum, Expectorated/Coughed Gram Stain - Final 03/24/22 22:00 Sputum, Expectorated/Coughed Respiratory Culture - Final Presumptive C albicans 03/24/22 00:29 Urine Catheter - Catheter Urine Culture - Final Escherichia coli 03/24/22 00:36 Blood Culture (Wb) - Left Forearm Blood Culture - Preliminary No growth in 48 hours. 03/24/22 00:31 Blood Culture (Wb) - Anticubital Left Blood Culture - Preliminary No growth in 48 hours. 03/24/22 08:45 Mucosa - Nose Respiratory Panel (PCR) - Final Rhythm Strip Rhythm Strip: Sinus Rhythm Physical Exam Narrative Physical exam: General: Alert, Oriented x3, Cooperative, on 5L of oxygen HEENT: Atraumatic Oral: Moist Mucosa Neck: Supple Lungs: Diminished to auscultation at the lung bases Cardiovascular: HS I+II, regular, no murmurs Abdomen: Bowel Sounds Present, Soft, Non Tender Extremities: No edema, right hip fracture dressing intact, no erythema around the wound Neurological: Grossly intact Psych/Mental Status: Appropriate Assessment & Plan Assessment/Plan (1) Closed right hip fracture: (2) Right foot drop: (3) Gait abnormality: PLAN: Plan 1. Sepsis likely secondary to acute E. coli UTI, secondary to intermittent self- catheterization Blood cultures showed no growth. Urine cultures growing E. coli We will switch from IV ceftriaxone to p.o. cefdinir 2. Relative hypotension, blood pressure appears improved Continue hold Cardizem and lisinopril 3. POD#4 status post right melissa-arthroplasty, pain is fairly controlled Patient presented with an acute femoral neck fracture secondary to mechanical fall in a patient with chronic right foot drop. Vitamin D levels is 43.8 Continue on PO oxycodone and OxyContin Continue with PT/OT evaluations 4. Acute hypoxic respiratory failure probably secondary to Acute COPD ex acerbation, improving Patient is currently on 5 L of oxygen. Chest x-ray shows no acute abnormality Off IV steroids, continue on scheduled bronchodilators Will continue to wean for SPO2 more than 93% 5. Hypokalemia, resolved 6. Chronic right foot drop secondary to lumbar radiculopathy with gait abnormalities PT/OT to evaluate, will also appreciate orthopedics recommendations 7. Liver cirrhosis secondary to chronic alcohol abuse/chronic thrombocytopenia/leukopenia Status post esophageal varices banding, no evidence of acute bleeding 8. Rest of chronic medical conditions including GERD/restless leg syndrome/results ear/chronic pain/neurogenic bladder/nicotine abuse remained stable Home meds reviewed 9. DVT prophylaxis?on apixaban 10. GI prophylaxis?on PPI Charges/Coding Visit Charges Inpatient E&M: 26985 Subs Hosp L2
--- NOTE | 2022-03-27 12:45 | RAD_ITS ---
STUDY: XR Chest 1 View 03/27/2022 12:55 PM REASON FOR EXAM: Male, 61 years old. CHEST PAIN sob COMPARISON: None TECHNIQUE: XR Chest 1 View FINDINGS: There is no demonstrated pleural abnormality. Normal heart size. Normal mediastinum. Normal davonte. Prominent appearing increased interstitial lung markings. Normal visualized pulmonary arteries. There is atherosclerotic calcification of the aortic arch with tortuosity. There are diffuse degenerative changes of the visualized thoracic spine. There is degenerative osteoarthritis of the bilateral shoulders. There is no demonstrated abnormality of the visualized soft tissue structures of the upper abdomen. RAD/Chest 1 View (Portable) IMPRESSION: There are no acute findings. Electronically Signed: Anthony Hedrick MD at 15:01 EDT ,
[2022-03-27 12:50] LABS: Pathologist Review Reviewed
--- NOTE | 2022-03-27 14:46 | CASEMGMT ---
Per therapy, pt is weaker and they are now recommending skilled rehab. This RN CM to room to discuss with pt and pt is agreeable, stating he has been to [facility] in past and states would like to go back there again. Bobby SW aware, voices understanding. [facility]
--- NOTE | 2022-03-27 14:59 | CASEMGMT ---
Social Work SW received referral from RNCM that pt now feels he cannot return home and needs short term placement for rehabilitation prior to returning home. CELY met with pt and provided pt with list of IRF providers including quality and resource use data nad ocnsistent with the patient's preferred geographic region, medical needs and insurance network. Pt preferred provider is [facility]. Phone call to Fariha at [facility] and they do have beds available and will review referral. CELY informed Isadora, Discharge vp ad products and planning, who will fax referral. Pt is aware that bed is available and approval and insurance auth will need to be obtained prior to discharge to [facility]. Pt expresses understanding. Plan: [facility], inpatient skilled rehabilitation unit - pending acceptance and insurance GAYATRI Caballero
--- NOTE | 2022-03-27 15:29 | CASEMGMT ---
Discharge Batteryman Faxed over referral to [place]. Will follow up. Isadora Gentile Discharge Batteryman
[2022-03-27] MEDS: Furosemide 40 MG/4 ML Vial IV (17:14)
[2022-03-27] MEDS: Sodium Chloride 0.65% 1 SPRAY SPRAY.BTL 2 SPRAY NASAL (17:52)
--- NOTE | 2022-03-27 18:20 | RAD_ITS ---
EXAM: XR ABDOMEN, 1 VIEW CLINICAL INDICATION: Abdominal distension TECHNIQUE: Frontal supine view of the abdomen/pelvis. This report was created using [employer] report generation technology. COMPARISON: None. FINDINGS: LOWER THORAX: No acute pathology. GASTROINTESTINAL TRACT: Bowel gas pattern may suggest an ileus. Obstruction cannot be excluded. Recommend CT to further evaluate. ORGANS: Unremarkable as visualized. No organomegaly. No abnormal calcifications. BONES/JOINTS: Degenerative findings in the lumbar spine. There is metallic hardware noted in the right hip. SOFT TISSUES: Skin jose guadalupe overlying the right hip. RAD/Abdomen Single View (Portable) IMPRESSION: Bowel gas pattern may suggest an ileus. Obstruction cannot be excluded. Recommend CT to further evaluate. Electronically Signed: Anthony Hedrick MD at 19:03 EDT ,
[2022-03-27] MEDS: dilTIAZem CD 240 MG Capsule PO (21:53)
[2022-03-27] MEDS: Cholecalciferol (VIT D3) 25 MCG TABLET (1,000 UNITS) PO (21:54)
[2022-03-27] MEDS: Cefdinir 300 MG Capsule PO (21:54)
[2022-03-27] MEDS: Pramipexole Di-HCl 0.125 MG Tablet PO (21:54)
[2022-03-27] MEDS: Ferrous Sulfate 325 MG Tablet PO (21:54)
[2022-03-28] VITALS (22 sets, daily range): BP systolic 97–128; BP diastolic 57–70; PULSE 87–107; RESP 16–18; TEMP 36.6–37.3; O2SAT 92–96
[2022-03-28 07:06] LABS: Absolute Lymphocyte Count 0.26 X10^3/uL (0.83-4.51); Absolute Neutrophil Count 1.9 X10^3/uL (2.0-7.7); Basophil# 0.02 X10^3/uL; Basophil% 0.8 % (0-1); Eosinophil# 0.13 X10^3/uL; Hematocrit 27.6 % (40-54); Hemoglobin 9.1 g/dL (13.0-16.5); Lymphocyte # 0.26 X10^3/ul (0.83-4.51); Mean Corpuscular Hgb 33.8 pg (27.0-32.0); Mean Corpuscular Volume 102.6 fL (80-94); Mean Platelet Vol. 9.1 fl (6.2-12.0); Monocyte# 0.26 X10^3/uL; NRBC Flagged by Analyzer 0 % (0-5); Neutrophil # 1.93 X10^3/uL (2.7-7.7); Neutrophil % 73.8 % (47-70); POSITIVE DIFFERENTIAL YES; Platelet Count 112 K/mm3 (150-450); RBC Distribution Width CV 14.5 % (11.6-14.6); RBC Distribution Width SD 54.4 fl (35.1-43.9); Red Blood Count 2.69 M/mm3 (4.6-6.2); White Blood Count 2.6 K/mm3 (4.4-11.0)
[2022-03-28 07:07] LABS: Differential Indicated SCAN CRITERIA MET
[2022-03-28 07:27] LABS: Differential Comment SCANNED
[2022-03-28 07:40] LABS: ALB/GLOB Ratio 0.5 RATIO (0.9-2.4); AST(SGOT) 69 U/L (15-37); Alanine Aminotransfer ALT/SGPT 54 U/L (16-61); Albumin, Serum 1.9 g/dL (3.2-5.0); Alkaline Phosphatase 90 U/L (45-117); Anion Gap 7 (5-15); BUN 12 mg/dL (7-18); BUN/Creat Ratio 20.2 RATIO (10-20); Calcium,Total 8.6 mg/dL (8.5-10.1); Chloride 102 mmol/L (98-107); EST Glomerular Filtration Rate 146 mL/min (>60); Est Glom Filt Rate - Afr Amer 177 mL/min (>60); Estimated Creatinine Clearance 127.65 ml/min; Globulin 3.9 g/dL (2.2-4.2); Glucose 94 mg/dL (74-106); Potassium 3.3 mmol/L (3.5-5.1); Protein, Total 5.8 g/dL (6.4-8.2); Sodium Level 136 mmol/L (136-145)
[2022-03-28] MEDS: Ipratropium/Albuterol Sulfate 3 ML AMPUL.NEB INHALATION ×3 (07:41→20:00)
--- NOTE | 2022-03-28 09:12 | CASEMGMT ---
Discharge Loan Officer Kem Levy accepted patient to SNF. Cam started pre-cert. Will follow up. Isadora Gentile Discharge Loan Officer
--- NOTE | 2022-03-28 09:17 | RAD_ITS ---
STUDY: X-RAY - ABDOMEN/PELVIS REASON FOR EXAM: Male, 61 years old. Ileus TECHNIQUE: AP supine and decubitus views of the abdomen and pelvis. COMPARISON: None. FINDINGS: Normal visualized lung bases. There is gas in multiple loops of small bowel and moderate dilatation distention of the colon suggestive of an adynamic ileus. There is no demonstrated free abdominal air. The visualized liver, spleen and kidneys are grossly normal in size and morphology. Normal soft tissue structures. Normal visualized osseous structures. RAD/Abd Decub and/or Erect(Portabl IMPRESSION: Adynamic ileus. No pneumoperitoneum. Electronically Signed: Jaylon Nunez MD at 10:16 EDT ,
--- NOTE | 2022-03-28 09:34 | PCM.PN.INT ---
Assessment & Plan Assessment/Plan (1) Sepsis: PLAN: Plan RECOMMENDATIONS: 1. Continue diuresis following potassium repletion 2. Likely okay to complete 7 days of total antibiotics 3. Wean supplemental oxygen as tolerated 4. Continue scheduled bronchodilators. Continue to hold steroids 5. Defer to hospitalist on ileus work-up 6. Continue lactulose and rifaximin. 7. Walking oximetry prior to discharge IMPRESSIONS: 1. Sepsis The patient appears to be becoming septic with probable urinary tract source of infection with acute sepsis related organ dysfunction as evidenced by hyperbilirubinemia. The patient has a normal ejection fraction on echo along with an albumin of 2.9. Patient's blood pressures have been stable for over 24 hours. Patient should complete a total of 7 days of antibiotics 2. Acute right femoral neck fracture The patient is POD #5 status post right hip hemiarthroplasty. Continue routine postoperative management per orthopedic surgery. 3. Questionable history of COPD/chronic tobacco dependency The patient has a longstanding tobacco abuse history along with a questionable COPD diagnosis. No wheezing noted on exam. We will continue with bronchodilators, but discontinue steroids. Steroids can decrease wound healing. Oxygen has worsened a little bit over the last 24 hours. Low clinical suspicion that this would be secondary to steroid removal as these would still be effective 24 to 48 hours afterwards. Continue with diuresis. Chest x-ray does not show pleural effusion. Patient does have significant abdominal distention that may be restricting lung movement and leading to atelectasis. 4. Chronic alcohol dependency with liver cirrhosis The patient has a known history of chronic alcohol dependency with associated liver disease. He does have a history of prior GI bleeds. Therefore, agree with continuing PPI therapy. In light of his ongoing alcohol dependency, recommend initiation of the alcohol withdrawal protocol. Thrombocytopenia likely secondary to liver cirrhosis also. 5. Hypertension/GERD/chronic pain/neurogenic bladder Complicates care, management, recovery and prognosis. Hold home antihypertensives for now. 6. Acute hypoxic respiratory insufficiency Encourage incentive spirometer. Will order diuresis for this evening. Continue ambulation as tolerated. No significant ascites was noted on ultrasound. This could be done as an outpatient. This note was generated with [employer] dictation software. It may contain incorrect words, spelling, and punctuation that were not noted in checking the note before signing. Subjective Subjective The patient did well overnight. No acute issues were reported. Patient did have imaging yesterday suggestive of an ileus, but reports that he had a bowel movement overnight. The patient is not reporting any significant respiratory complaints, but is still requiring 4-1/2 L to maintain saturations. Patient did improve following nasal saline and has been reporting some nasal congestion that he attributes to his nasal cannula. Objective Data Objective Data Vital Signs: Vital Signs Temp Pulse Resp BP Pulse Ox FiO2 36.7 C 92 16 105/59 L 93 94 03/28/22 06:46 03/28/22 07:41 03/28/22 07:41 03/28/22 06:46 03/28/22 07:41 03/27/22 10:28 Oxygen Flow Rate (L/min) 4 Oxygen Delivery Method Nasal Cannula Weight: 84.3 kg Body Mass Index (BMI) 24.7 Intake & Output: Intake and Output for Last 24 Hours 03/26/22 03/27/22 03/28/22 23:59 23:59 23:59 Intake Total 2075 / 2575 1730 / 1730 300 / 300 Output Total 2575 / 3450 1974 / 1974 925 / 925 Balance -500 / -875 -245 / -245 -625 / -625 Lab / Micro Data Attestation: I reviewed the patient's lab results. Result Diagrams: 03/28/22 06:35 03/28/22 06:35 Labs: Laboratory Results - last 24 hr 03/27/22 05:25: Diff Path Review Reviewed 03/28/22 06:35: WBC 2.6 L, RBC 2.69 L, Hgb 9.1 L, Hct 27.6 L, MCV 102.6 H, MCH 33.8 H, MCHC 33.0, RDW Std Deviation 54.4 H, RDW Coeff of Jose 14.5, Plt Count 112 L, MPV 9.1, Immature Gran % (Auto) 0.400, Neut % (Auto) 73.8 H, Lymph % (Auto) 10.0 L, [place] % (Auto) 10.0, Eos % (Auto) 5.0, Baso % (Auto) 0.8, Absolute Neuts (auto) 1.9 L, Absolute Lymphs (auto) 0.26 L, Nucleated RBC % 0, Differential Comment SCANNED, Diff Path Review February03/28/22 06:35: Sodium 136, Potassium 3.3 L, Chloride 102, Carbon Dioxide 27.0, Anion Gap 7, BUN 12, Creatinine 0.60 L, Estim Creat Clear Calc 127.65, Est GFR (MDRD) Af Amer 177, Est GFR (MDRD) Non-Af 146, BUN/Creatinine Ratio 20.2 H, Glucose 94, Calcium 8.6, Total Bilirubin 1.00, AST 69 H, ALT 54, Alkaline Phosphatase 90, Total Protein 5.8 L, Albumin 1.9 L, Globulin 3.9, Albumin/Globulin Ratio 0.5 L 03/28/22 06:35: Magnesium 2.0 Micro: Microbiology 03/24/22 22:00 Sputum, Expectorated/Coughed Gram Stain - Final 03/24/22 22:00 Sputum, Expectorated/Coughed Respiratory Culture - Final Presumptive C albicans 03/24/22 00:29 Urine Catheter - Catheter Urine Culture - Final Escherichia coli 03/24/22 00:36 Blood Culture (Wb) - Left Forearm Blood Culture - Preliminary No growth in 48 hours. 03/24/22 00:31 Blood Culture (Wb) - Anticubital Left Blood Culture - Preliminary No growth in 48 hours. 03/24/22 08:45 Mucosa - Nose Respiratory Panel (PCR) - Final Radiography Diagnostic Testing: Radiology Impression Abdomen Ultrasound 03/27/22 12:04 IMPRESSION: No significant ascites fluid for drainage. Electronically Signed: Abdi Duran, at 13:25 EDT , Chest X-Ray 03/27/22 12:45 IMPRESSION: There are no acute findings. Electronically Signed: Anthony Hedrick MD at 15:01 EDT , KUB X-Ray 03/27/22 18:20 IMPRESSION: Bowel gas pattern may suggest an ileus. Obstruction cannot be excluded. Recommend CT to further evaluate. Electronically Signed: Anthony Hedrick MD at 19:03 EDT , Rhythm Strip Rhythm Strip: Sinus Rhythm Physical Exam Const alert, oriented x3 and no apparent distress Constitutional Narrative: Appears older than stated age General Appearance: cooperative, ill appearing and frail HEENT normocephalic and head/scalp atraumatic HEENT Narrative: . Nasal cannula in place Eyes PERRL, EOMs intact bilaterally and conjunctivae normal Neck supple General: trachea midline Chest inspection of chest normal Resp normal respiratory effort Effort and Inspection: tachypneic; Negative for actively coughing Auscultation: diminished lung sounds; Negative for rales, rhonchi or wheezes Cardio S1 normal heart sound, S2 normal heart sound, no murmurs, no rub and no gallops Rate: tachycardic GI GI Narrative: Abdominal distention appears to be stable Inspection: abdominal distention Palpation: Negative for tender, guarding or rigid Percussion: fluid wave Extremity no clubbing, cyanosis or edema Skin no rashes or lesions noted Neuro CN's II-XII intact bilaterally and no focal motor deficits Psych cooperative and affect normal Mood & Affect: flat affect Charges/Coding Visit Charges Inpatient E&M: 34392 Subs Hosp L2
--- NOTE | 2022-03-28 10:32 | PN.HOSP_ITS ---
Subjective Subjective Follow-up on sepsis/postoperative replacement/decompensated liver cirrhosis: Patient was seen and examined.? Patient was found to have abdominal distension. KUB showed ileus. He however had one bowel movement yesterday. No nausea or vomiting. Objective Data Objective Data Vital Signs: Vital Signs Temp Pulse Resp BP Pulse Ox FiO2 97.9 F 94 18 100/58 L 92 94 03/28/22 09:41 03/28/22 09:41 03/28/22 09:41 03/28/22 09:41 03/28/22 09:41 03/27/22 10:28 Oxygen Flow Rate (L/min) 4 Oxygen Delivery Method Nasal Cannula Weight: 84.3 kg Body Mass Index (BMI) 24.7 Intake & Output: Intake and Output for Last 24 Hours 03/26/22 03/27/22 03/28/22 23:59 23:59 23:59 Intake Total 2075 / 2575 1730 / 1730 300 / 300 Output Total 2575 / 3450 1974 / 1974 925 / 925 Balance -500 / -875 -245 / -245 -625 / -625 Lab / Micro Data Result Diagrams: 03/28/22 06:35 03/28/22 06:35 Labs: Laboratory Results - last 24 hr 03/27/22 05:25: Diff Path Review Reviewed 03/28/22 06:35: WBC 2.6 L, RBC 2.69 L, Hgb 9.1 L, Hct 27.6 L, MCV 102.6 H, MCH 33.8 H, MCHC 33.0, RDW Std Deviation 54.4 H, RDW Coeff of Jose 14.5, Plt Count 112 L, MPV 9.1, Immature Gran % (Auto) 0.400, Neut % (Auto) 73.8 H, Lymph % (Auto) 10.0 L, [place] % (Auto) 10.0, Eos % (Auto) 5.0, Baso % (Auto) 0.8, Absolute Neuts (auto) 1.9 L, Absolute Lymphs (auto) 0.26 L, Nucleated RBC % 0, Differential Comment SCANNED, Diff Path Review February03/28/22 06:35: Sodium 136, Potassium 3.3 L, Chloride 102, Carbon Dioxide 27.0, Anion Gap 7, BUN 12, Creatinine 0.60 L, Estim Creat Clear Calc 127.65, Est GFR (MDRD) Af Amer 177, Est GFR (MDRD) Non-Af 146, BUN/Creatinine Ratio 20.2 H, Glucose 94, Calcium 8.6, Total Bilirubin 1.00, AST 69 H, ALT 54, Alkaline Phosphatase 90, Total Protein 5.8 L, Albumin 1.9 L, Globulin 3.9, Albumin/Globulin Ratio 0.5 L 03/28/22 06:35: Magnesium 2.0 Micro: Microbiology 03/24/22 22:00 Sputum, Expectorated/Coughed Gram Stain - Final 03/24/22 22:00 Sputum, Expectorated/Coughed Respiratory Culture - Final Presumptive C albicans 03/24/22 00:29 Urine Catheter - Catheter Urine Culture - Final Escherichia coli 03/24/22 00:36 Blood Culture (Wb) - Left Forearm Blood Culture - Preliminary No growth in 48 hours. 03/24/22 00:31 Blood Culture (Wb) - Anticubital Left Blood Culture - Preliminary No growth in 48 hours. 03/24/22 08:45 Mucosa - Nose Respiratory Panel (PCR) - Final Radiography Diagnostic Testing: Radiology Impression Abdomen Ultrasound 03/27/22 12:04 IMPRESSION: No significant ascites fluid for drainage. Electronically Signed: Abdi Duran, at 13:25 EDT , Chest X-Ray 03/27/22 12:45 IMPRESSION: There are no acute findings. Electronically Signed: Anthony Hedrick MD at 15:01 EDT , KUB X-Ray 03/27/22 18:20 IMPRESSION: Bowel gas pattern may suggest an ileus. Obstruction cannot be excluded. Recommend CT to further evaluate. Electronically Signed: Anthony Hedrick MD at 19:03 EDT , Abdomen X-Ray 03/28/22 09:17 IMPRESSION: Adynamic ileus. No pneumoperitoneum. Electronically Signed: Jaylon Nunez MD at 10:16 EDT , Rhythm Strip Rhythm Strip: Sinus Rhythm Physical Exam Narrative Physical exam: General: Alert, Oriented x3, Cooperative, on 4 L of oxygen HEENT: Atraumatic Oral: Moist Mucosa Neck: Supple Lungs: Diminished to auscultation at the lung bases Cardiovascular: HS I+II, regular, no murmurs Abdomen: Distended abdomen, Bowel Sounds Present, Soft, Non Tender Extremities: No edema, right hip fracture dressing intact, no erythema around the wound Neurological: Grossly intact Psych/Mental Status: Appropriate Assessment & Plan Assessment/Plan (1) Closed right hip fracture: (2) Right foot drop: (3) Gait abnormality: PLAN: Plan 1. Ileus, likely multifactorial, KUB showed distended small bowel and large bowel We will keep n.p.o., replace potassium, allow early ambulation, bisacodyl rectal x1 Will consult general surgery if ileus persists 2. Sepsis likely secondary to acute E. coli UTI, secondary to intermittent self-catheterization Blood cultures showed no growth. Urine cultures growing E. coli Will switch from p.o. cefdinir to IV ceftriaxone whilst NPO 3. Relative hypotension,remains relatively low Continue hold Cardizem and lisinopril 4. POD#5 status post right melissa-arthroplasty, pain is fairly controlled Patient presented with an acute femoral neck fracture secondary to mechanical fall in a patient with chronic right foot drop. Vitamin D levels is 43.8 Continue on PO oxycodone and OxyContin Continue with PT/OT evaluations 5. Acute hypoxic respiratory failure probably secondary to Acute COPD exacerbation, improving Patient is currently on 4 L of oxygen. Chest x-ray shows no acute abnormality Off IV steroids, continue on scheduled bronchodilators Will continue to wean for SPO2 more than 93% 6. Hypokalemia, replaced, recheck in am 7. Chronic right foot drop secondary to lumbar radiculopathy with gait abnormalities PT/OT to evaluate, will also appreciate orthopedics recommendations 8. Liver cirrhosis secondary to chronic alcohol abuse/chronic thrombocytopenia/leukopenia Status post esophageal varices banding, no evidence of acute bleeding 9. Rest of chronic medical conditions including GERD/restless leg syndrome/results ear/chronic pain/neurogenic bladder/nicotine abuse remained stable Home meds reviewed 10. DVT prophylaxis?on apixaban Charges/Coding Visit Charges Inpatient E&M: 16938 Subs Hosp L2
[2022-03-28] MEDS: Potassium Chloride 10mEq/100mL 10 MEQ/100 ML IV.SOLN. 100 MEQ IV BOLUS (11:02)
[2022-03-28] MEDS: 0.9% Normal Saline 1,000 ML 75 ML IV ×2 (11:02→21:45)
[2022-03-28] MEDS: Folic Acid 1 MG Tablet PO (11:04)
[2022-03-28] MEDS: Carbidopa/Levodopa 10/100 Tablet PO (11:04)
[2022-03-28] MEDS: Thiamine Hydrochloride 100 MG Tablet PO (11:04)
[2022-03-28] MEDS: Lactulose 20 GM/30 ML UDC 10 GM PO ×2 (11:05→21:44)
[2022-03-28] MEDS: Cefdinir 300 MG Capsule PO (11:05)
[2022-03-28] MEDS: rifAXIMin 550 MG Tablet PO ×2 (11:06→21:44)
[2022-03-28] MEDS: Pantoprazole Sodium 40 MG Tablet PO (11:06)
[2022-03-28] MEDS: Sodium Chloride 0.65% 1 SPRAY SPRAY.BTL 2 SPRAY NASAL ×2 (11:09→16:17)
[2022-03-28] MEDS: Gabapentin 300 MG Capsule PO ×2 (11:16→21:44)
[2022-03-28] MEDS: Calcium Carbonate 500 MG Tablet PO ×2 (11:16→16:17)
[2022-03-28] MEDS: Bisacodyl 10 MG Suppository RC (11:16)
--- NOTE | 2022-03-28 11:25 | CASEMGMT ---
Miranda at [facility] aware of pt plan for [facility] at discharge. Jean Carlos SONG CM
[2022-03-28] MEDS: Potassium Chloride 10mEq/100mL 10 MEQ/100 ML IV.SOLN. 80 MEQ IV BOLUS (12:03)
[2022-03-28] MEDS: Potassium Chloride 10mEq/100mL 10 MEQ/100 ML IV.SOLN. 90 MEQ IV BOLUS ×2 (13:26→14:48)
--- NOTE | 2022-03-28 15:44 | CON.PCM.SX_ITS ---
Assessment & Plan Assessment/Plan (1) Abdominal distention: PLAN: I am seeing this patient in conjunction with Dr. Ward. He will indepen dently evaluate this patient. Patient has significant abdominal distention. He has had multiple bowel movements today. He is passing a small amount of flatus. He is s/p right hemiarthroplasty and on chronic narcotic pain medication. Recommend a CT scan of the ab/pel with contrast to further evaluate possible severe ileus versus bowel obstruction versus cancerous process. Patient has a past medical history of liver cirrhosis. Patient is currently NPO. Patient is agreeable to proceed with any testing needed at this time. Patient has had the opportunity to ask and have questions answered. Patient verbally understands and agrees with the plan. Patient is agreeable at this time to no leave AMA. Thank you for allow us to participate in this patient's care. HPI Consult Data Date of Consult: 03/28/22 HPI Narrative HPI Narrative: JOSÉ MCDOWELL, is a 61 M who presents from [place] ED with a closed fracture of the right hip. Patient states he has a pinched nerve in his spine that has caused his right foot to not work very well. He noted he tripped over the bathroom rug and fell. Patient states he attempted to drink the pain away however his symp toms became worse and he preceded to the ED in [place]. He was then transferred to [place] where there was an orthopedic surgeon available. Dr. Hilario performed a right hip hemiarthroplasty on 03/23/22. Patient tolerated the procedure well. It appears he was transferred to ICU on POD #1 secondary to developing sepsis from an urinary tract infection. Patient states he has to straight cath himself at h ome. He states he was told this was due to the nerve compression in his back. He states every 4 hours he uses a catheter. He is unable to urinate on his own. He currently has a Kim catheter. Patient was transferred back to PCU on 03/25. On 03/28, patient was found to have developed abdominal distention. A KUB was obtained demonstrating distention of the small and large colon suggestive of an adynamic ileus. Patient states he was given a suppository today and has had two bowel movements. He notes he was not able to see how large they were. He does not believe it was diarrhea. He notes he has been passing small amounts of flatus. Patient states he does not typically have bowel movements every day. He notes every other day and depends on his diet. Patient is an alcoholic. He states he has a 6 pack of beer per week and he has drastically cut down from what he used to drink. He is unsure when he has had his last colonoscopy. He denies a family history of colon cancer. He denies any previous abdominal surgeries. He states he is not typically this distended. He notes he usually has a belly however not this big. Patient mentioned that he is used to eating 1-2 meals per day. He is consuming 3 meals per day while in the hospital. He denies nausea, vomiting. He notes he has been able to ambulate just fine while in the hospital. He states he was going to leave AMA today because he felt that radiology was moving him too much on the table in order to obtain a KUB. Patient had developed a GI bleed from esophageal varices. He states he had to go to [facility] emergently for esophageal banding. He notes his last EGD was completed in 2019 which did not demonstrate esophageal varices or active bleeding. Patient does note he has cirrhosis of the liver. He also is a smoker, 1/2 pack per day. Patient currently is under the care of Dr. George for pain management. He is prescribed Oxycodone BID and gabapentin BID for chronic pain. [facility] Medical History (Updated 03/28/22 @ 16:18 by Nancy ALBERTO PABenC) Abdominal distention Alcohol abuse Anemia Anemia Back pain due to injury Back problem Bleeding tendency Chronic indwelling Kim catheter Chronic pain Cirrhosis Epidermal inclusion cyst Failed skin graft Family history of skin cancer Gastroesophageal reflux disease without esophagitis GI bleed History of blood transfusion Hypertension Hypokalemia Left nasal polyps Leukopenia Multiple allergies Neoplasm of skin of eyelid Neurogenic bladder Panlobular emphysema Restless legs Rhinophyma Rosacea Secondary esophageal varices with bleeding Smoker Smoker Thrombocytopenia Verrucous keratosis Vitamin D deficiency Home Medications albuterol 90 mcg/actuation aerosol inhaler 90 mcg inhalation Q4H PRN PRN sob 10/29/17 [History Last Taken 11/25/17 08:00] diltiazem HCl 240 mg capsule,extended release 24 hr 240 mg PO QHS BLOOD PRESSURE 10/29/17 [History Last Taken 03/21/22] ferrous sulfate 325 mg (65 mg iron) tablet,delayed release 325 mg PO QHS REP LACMENT 10/29/17 [History Last Taken Unknown] metronidazole 0.75 % topical gel 1 applic topical Q12H PSORIASIS 10/29/17 [History Last Taken Unknown] pantoprazole 40 mg granules delayed-release for susp in packet 40 mg PO QDAY HEARTBURN 10/29/17 [History Last Taken 11/25/17 08:00] potassium chloride 20 mEq tablet,extended release(part/cryst) (Klor-Con M) 20 meq PO QDAY 10/29/17 [History Last Taken Unknown] pramipexole 0.125 mg tablet 0.125 mg PO QHS RESTLESS LEGS 10/29/17 [History Last Taken Unknown] cholecalciferol (vitamin D3) 25 mcg (1,000 unit) tablet 1,000 unit PO QHS REPLACEMENT 04/22/19 [History Last Taken 03/21/22] lisinopril 5 mg tablet 5 mg PO QHS BLOOD PRESSURE 04/22/19 [History Last Taken 03/21/22] carbidopa 10 mg-levodopa 100 mg tablet 2 tab PO DAILY restless legs 03/23/22 [History Last Taken Unknown] gabapentin 300 mg capsule 300 cap PO BID CHRONIC PAIN 03/23/22 [History Last Taken Unknown] levocetirizine 5 mg tablet (Xyzal) 5 mg PO DAILY ALLERGIES 03/23/22 [History Last Taken Unknown] oxycodone myristate 9 mg capsule sprinkle extended release 12 hr(DON'T CRUSH) (Xtampza ER) 9 mg PO BID CHRONIC RT LEG PAIN 03/23/22 [History Last Taken Unknown] Allergy/AdvReac Type Severity Reaction Status Date / Time acetaminophen [From Tylenol] Allergy Intermediate Hives Verified 05/11/19 11:27 Family History Father Alcoholism Hypertension Grandmother Angina at rest Breast cancer Diabetes Mother Bleeding disorder Sister Breast cancer Social History (Updated 03/23/22 @ 05:[address] Carli Connelly DO) household members: spouse and children housing: house Smoking Status: Current every day smoker tobacco type: cigarettes Smoking packs per day: 0.5 Smoking cigarettes per day: 10.0 alcohol intake: current alcohol intake frequency: 0-2 drinks per day details: Drinks approximately 6 beers a week substance use type: does not use do you feel safe at home: Yes ROS Constitutional Constitutional: Denies anorexia, chills, fatigue, fever(s), headache(s), weight gain or weight loss Eyes Eyes: Reports systems reviewed and no addt'l complaints, except as documented; Denies blurry vision, change in vision, loss of central vision, loss of peripheral vision or loss of vision ENT HEENT: Reports systems reviewed and no addt'l complaints, except as documented; Denies abnormal hearing, dysphagia, epistaxis, facial pain, hearing loss, nasal congestion, nasal discharge, neck pain, sinus pain or sinus pressure Cardiovascular Cardiovascular: Reports systems reviewed and no addt'l complaints, except as documented; Denies chest pain, chest pain at rest, chest pain with activity, dyspnea, palpitations or syncope Respiratory/Chest Respiratory/Chest: Reports systems reviewed and no addt'l complaints, except as documented; Denies cough, dyspnea, productive cough, shortness of breath at rest, shortness of breath with exertion or wheezing Gastrointestinal Gastrointestinal: Reports systems reviewed and no addt'l complaints, except as documented; Denies abdominal pain, bloating, change in bowel habits, coffee ground emesis, constipation, diarrhea, dysphagia, hematemesis, hematochezia, melena, nausea, rectal bleeding or vomiting Genitourinary Genitourinary: Reports systems reviewed and no addt'l complaints, except as documented; Denies change in urinary stream, difficulty urinating, dysuria, flank pain, genital pain, hematuria, urinary frequency, urinary incontinence or urinary urgency Musculoskeletal Musculoskeletal: Reports systems reviewed and no addt'l complaints, except as documented, abnormal gait, limited range of motion and muscle weakness; Denies back pain, difficulty walking, joint pain, joint swelling, muscle spasms or numbness Integumentary Integumentary: Reports systems reviewed and no addt'l complaints, except as documented; Denies jaundice, new lesions, non-healing lesions, rash or skin ulcer Neurologic Neurologic: Reports systems reviewed and no addt'l complaints, except as documented, numbness, tingling and weakness; Denies abnormal gait, dizziness, focal weakness, loss of vision or paresthesias Psychiatric Psychiatric: Reports systems reviewed and no addt'l complaints, except as documented Endocrine Endocrinology: Reports systems reviewed and no addt'l complaints, except as documented Hematologic/Lymphatic Hematologic/Lymphatic: Reports easy bleeding and easy bruising Allergic/Immunologic Allergic/Immunologic: Reports systems reviewed and no addt'l complaints, except as documented Physical Exam Const alert, oriented x3 and no apparent distress HEENT normocephalic and head/scalp atraumatic Eyes PERRL and EOMs intact bilaterally Neck full ROM and supple Lymph Lymphatic: no lymphadenopathy noted Resp normal respiratory effort and clear to auscultation bilaterally Cardio Rate: regular rate Rhythm: regular rhythm GI GI Narrative: Abdomen significantly distended with high-pitched hypoactive bowel sounds. Abdomen non-tender to palpation. Abdominal tympany is noted. Abdomen is taut Bladder / Kidney Exam: catheter in place other (orange-tinged urine noted. ) Back/Spine no CVA tenderness Extremity no calf tenderness Extremity Narrative: No edema noted Skin Skin Narrative: Incision at the right hip appears intact Neuro CN's II-XII intact bilaterally Psych mental status grossly normal Lab / Micro Data Result Diagrams: 03/28/22 06:35 03/28/22 06:35 Labs: Laboratory Results - last 24 hr 03/28/22 06:35: WBC 2.6 L, RBC 2.69 L, Hgb 9.1 L, Hct 27.6 L, MCV 102.6 H, MCH 33.8 H, MCHC 33.0, RDW Std Deviation 54.4 H, RDW Coeff of Jose 14.5, Plt Count 112 L, MPV 9.1, Immature Gran % (Auto) 0.400, Neut % (Auto) 73.8 H, Lymph % (Auto) 10.0 L, [place] % (Auto) 10.0, Eos % (Auto) 5.0, Baso % (Auto) 0.8, Absolute Neuts (auto) 1.9 L, Absolute Lymphs (auto) 0.26 L, Nucleated RBC % 0, Differential Comment SCANNED, Diff Path Review February03/28/22 06:35: Sodium 136, Potassium 3.3 L, Chloride 102, Carbon Dioxide 27.0, Anion Gap 7, BUN 12, Creatinine 0.60 L, Estim Creat Clear Calc 127.65, Est GFR ( MDRD) Af Amer 177, Est GFR (MDRD) Non-Af 146, BUN/Creatinine Ratio 20.2 H, Gl ucose 94, Calcium 8.6, Total Bilirubin 1.00, AST 69 H, ALT 54, Alkaline Phosp hatase 90, Total Protein 5.8 L, Albumin 1.9 L, Globulin 3.9, Albumin/Globulin Ratio 0.5 L 03/28/22 06:35: Magnesium 2.0 Rhythm Strip Rhythm Strip: Sinus Rhythm Radiology Impression KUB X-Ray 03/27/22 18:20 IMPRESSION: Bowel gas pattern may suggest an ileus. Obstruction cannot be excluded. Recommend CT to further evaluate. Electronically Signed: Anthony Hedrick MD at 19:03 EDT , Abdomen X-Ray 03/28/22 09:17 IMPRESSION: Adynamic ileus. No pneumoperitoneum. Electronically Signed: Jaylon Nunez MD at 10:16 EDT , Charges/Coding Visit Charges Office Visits / Consults: [id number] IP Consult L3
--- NOTE | 2022-03-28 17:18 | NURSING ---
This RN went to check on pt drinking contrast, pt had 3 more sections of bottle to drink by 1814, when this RN checked the bottle it was empty and pt stated it tasted like shit so I drank it all, so I didn't have to taste it again. This RN then notified CT that pt finished early and they said it should be fine without them sending another one.
--- NOTE | 2022-03-28 18:48 | CT_ITS ---
STUDY: CT ABDOMEN AND PELVIS WITH CONTRAST REASON FOR EXAM: Male, 61 years old. abdominal distention, ileus, hx liver cirrhosis -- with gastrografin RADIATION DOSAGE (If Supplied By Facility): CTDIvol = ( 15.04 ) mGy, DLP = ( 1118.67 ) mGycm TECHNIQUE: Transaxial images were obtained from the dome of the diaphragm to the symphysis pubis without oral contrast. Oral and amp; IV Gastrografin and amp; 100mL Isovue-370 was administered. Sagittal and coronal images were reconstructed. Individualized dose optimization techniques were used for this CT. COMPARISON: None. FINDINGS: Peripheral groundglass densities in the lower lungs, suspicious for multifocal pneumonia such as Covid 19. Subsegmental consolidation in the right lower lobe noted. Trace right-sided pleural effusion. Atherosclerosis of the coronary arteries. Cirrhotic morphology of the liver with diffuse hepatic steatosis. Enlarged spleen measuring 15.9 cm in the greatest dimension. Enlarged portosystemic collaterals. Unremarkable pancreas, adrenals, and bilateral kidneys. No definite cholelithiasis. Trace ascites. No free air. Moderate to large amount of retained stool in the distal colon and rectum. Mild to moderate diffuse colonic dilatation, due to ileus or developing distal colonic obstruction. CT evidence of acute appendicitis. No adenopathy. Vascular calcification. No abdominal aortic aneurysm. Sections through the pelvis demonstrate a normal sized prostate. WELDON catheter in the bladder. Fat-containing left inguinal hernia. Status post right total hip arthroplasty. Multilevel lumbar spondylosis. Diffuse osteopenia. Posterior disc bulges in the lower lumbar spine. CT/Abdomen/Pelvis WITH Contrast IMPRESSION: Findings suspicious for multifocal pneumonia such as Covid 19. Subsegmental densities in the right lower lobe, due to atelectasis, aspiration, or pneumonia. Cirrhosis with moderate splenomegaly and trace ascites. Moderate to large amount of retained stool in the distal colon and rectum. Mild to moderate diffuse colonic dilatation, due to ileus or developing distal colonic obstruction. Electronically Signed: Nnamdi Pena MD at 20:06 EDT ,
[2022-03-28] MEDS: Cholecalciferol (VIT D3) 25 MCG TABLET (1,000 UNITS) PO (21:44)
[2022-03-28] MEDS: dilTIAZem CD 240 MG Capsule PO (21:44)
[2022-03-28] MEDS: Pramipexole Di-HCl 0.125 MG Tablet PO (21:44)
[2022-03-28] MEDS: Ferrous Sulfate 325 MG Tablet PO (21:44)
[2022-03-28] MEDS: Ceftriaxone 1 GM/50 ML BAG IV (21:45)
[2022-03-29] VITALS (10 sets, daily range): BP systolic 119–123; BP diastolic 60–86; PULSE 85–98; RESP 16–20; TEMP 36.6–37.1; O2SAT 86–95
[2022-03-29] MEDS: Fleet Enema 1 ML RC (04:52)
--- NOTE | 2022-03-29 05:50 | PCM.PN.SRG ---
Subjective Subjective Patient is in good spirits today and wanting to go home. He states that he had several bowel movements. Feels that he had good results with the fleets enema. No nausea. No abdominal pain. He states that his abdomen is back down to his normal soft distention. Refer to the CT imaging results Findings suspicious for multifocal pneumonia such as Covid 19. ? Subsegmental densities in the right lower lobe, due to atelectasis, aspiration, or pneumonia. ? Cirrhosis with moderate splenomegaly and trace ascites. ? Moderate to large amount of retained stool in the distal colon and rectum. ? Mild to moderate diffuse colonic dilatation, due to ileus or developing distal colonic obstruction Objective Data Objective Data Vital Signs: Vital Signs Temp Pulse Resp BP Pulse Ox FiO2 98.8 F 94 18 121/64 H 94 94 03/29/22 02:43 03/29/22 03:00 03/29/22 02:43 03/29/22 02:43 03/29/22 02:43 03/27/22 10:28 Oxygen Flow Rate (L/min) 3.5 Oxygen Delivery Method Nasal Cannula Weight: 185 lb 13.595 oz Body Mass Index (BMI) 24.7 Intake & Output: Intake and Output for Last 24 Hours 03/27/22 03/28/22 03/29/22 23:59 23:59 23:59 Intake Total 1730 / 1730 1808.75 / 1808.75 0 / 0 Output Total 1974 1725 / 2825 1100 / 1100 Balance -245 / -245 83.75 / -1016.25 -1100 / -1100 Lab / Micro Data Result Diagrams: 03/28/22 06:35 03/28/22 06:35 Labs: Laboratory Results - last 24 hr 03/28/22 06:35: WBC 2.6 L, RBC 2.69 L, Hgb 9.1 L, Hct 27.6 L, MCV 102.6 H, MCH 33.8 H, MCHC 33.0, RDW Std Deviation 54.4 H, RDW Coeff of Jose 14.5, Plt Count 112 L, MPV 9.1, Immature Gran % (Auto) 0.400, Neut % (Auto) 73.8 H, Lymph % (Auto) 10.0 L, [place] % (Auto) 10.0, Eos % (Auto) 5.0, Baso % (Auto) 0.8, Absolute Neuts (auto) 1.9 L, Absolute Lymphs (auto) 0.26 L, Nucleated RBC % 0, Differential Comment SCANNED, Diff Path Review February03/28/22 06:35: Sodium 136, Potassium 3.3 L, Chloride 102, Carbon Dioxide 27.0, Anion Gap 7, BUN 12, Creatinine 0.60 L, Estim Creat Clear Calc 127.65, Est GFR (MDRD) Af Amer 177, Est GFR (MDRD) Non-Af 146, BUN/Creatinine Ratio 20.2 H, Glucose 94, Calcium 8.6, Total Bilirubin 1.00, AST 69 H, ALT 54, Alkaline Phosphatase 90, Total Protein 5.8 L, Albumin 1.9 L, Globulin 3.9, Albumin/Globulin Ratio 0.5 L 03/28/22 06:35: Magnesium 2.0 Micro: Microbiology 03/28/22 20:59 Nasal Secretion SARS-CoV-2 Antigen (Rapid) - Final 03/24/22 22:00 Sputum, Expectorated/Coughed Gram Stain - Final 03/24/22 22:00 Sputum, Expectorated/Coughed Respiratory Culture - Final Presumptive C albicans 03/24/22 00:29 Urine Catheter - Catheter Urine Culture - Final Escherichia coli 03/24/22 00:36 Blood Culture (Wb) - Left Forearm Blood Culture - Preliminary No growth in 48 hours. 03/24/22 00:31 Blood Culture (Wb) - Anticubital Left Blood Culture - Preliminary No growth in 48 hours. 03/24/22 08:45 Mucosa - Nose Respiratory Panel (PCR) - Final Radiography Diagnostic Testing: Radiology Impression Abdomen X-Ray 03/28/22 09:17 IMPRESSION: Adynamic ileus. No pneumoperitoneum. Electronically Signed: Jaylon Nunez MD at 10:16 EDT , Abdomen/Pelvis CT 03/28/22 18:48 IMPRESSION: Findings suspicious for multifocal pneumonia such as Covid 19. Subsegmental densities in the right lower lobe, due to atelectasis, aspiration, or pneumonia. Cirrhosis with moderate splenomegaly and trace ascites. Moderate to large amount of retained stool in the distal colon and rectum. Mild to moderate diffuse colonic dilatation, due to ileus or developing distal colonic obstruction. Electronically Signed: Nnamdi Pena MD at 20:06 EDT , Rhythm Strip Rhythm Strip: Sinus Rhythm Physical Exam GI GI Narrative: Soft, distended, bowel sounds nonspecific, no focal tenderness or mass Assessment & Plan Assessment/Plan (1) Adynamic ileus: PLAN: Adynamic ileus is improving. Patient likely has a degree of chronic bowel dose motility problems aggravated by his cirrhosis and chronic narcotic usage long-term. This point I believe that he can resume a diet. I would recommend a daily bowel regimen with MiraLAX. The patient is anxious for discharge. We can see him back in the office in a month when he is more fully recovered to consider a screening colonoscopy at that time. The patient is still requiring oxygen and obviously is still significantly affected by his acute illness. Surgery will sign off at this time. Kaiden Ward M.D., F.A.C.S.
[2022-03-29] MEDS: Ipratropium/Albuterol Sulfate 3 ML AMPUL.NEB INHALATION ×2 (06:45→10:58)
[2022-03-29 06:48] LABS: Absolute Neutrophil Count 2.4 X10^3/uL (2.0-7.7); Basophil# 0.02 X10^3/uL; Basophil% 0.7 % (0-1); Eosinophil# 0.15 X10^3/uL; Hemoglobin 10.2 g/dL (13.0-16.5); Lymphocyte % 6.6 % (19-41); Mean Corpuscular Hgb 34.6 pg (27.0-32.0); Mean Corpuscular Volume 101.7 fL (80-94); Mean Platelet Vol. 9.2 fl (6.2-12.0); Monocyte% 9.9 % (0-10); NRBC Flagged by Analyzer 0 % (0-5); Neutrophil # 2.35 X10^3/uL (2.7-7.7); Neutrophil % 77.5 % (47-70); POSITIVE DIFFERENTIAL YES; Platelet Count 124 K/mm3 (150-450); RBC Distribution Width CV 14.4 % (11.6-14.6); RBC Distribution Width SD 53.8 fl (35.1-43.9); Red Blood Count 2.95 M/mm3 (4.6-6.2)
[2022-03-29 06:54] LABS: Differential Indicated SCAN CRITERIA MET
[2022-03-29 07:15] LABS: Differential Comment SCANNED
[2022-03-29 07:17] LABS: ALB/GLOB Ratio 0.5 RATIO (0.9-2.4); AST(SGOT) 69 U/L (15-37); Alanine Aminotransfer ALT/SGPT 56 U/L (16-61); Alkaline Phosphatase 108 U/L (45-117); Anion Gap 6 (5-15); BUN 7 mg/dL (7-18); BUN/Creat Ratio 12.6 RATIO (10-20); Calcium,Total 8.3 mg/dL (8.5-10.1); Chloride 105 mmol/L (98-107); Creatinine, Serum 0.56 mg/dL (0.70-1.30); EST Glomerular Filtration Rate 159 mL/min (>60); Est Glom Filt Rate - Afr Amer 192 mL/min (>60); Estimated Creatinine Clearance 136.77 ml/min; Globulin 4.1 g/dL (2.2-4.2); Glucose 101 mg/dL (74-106); Potassium 3.2 mmol/L (3.5-5.1); Protein, Total 6.1 g/dL (6.4-8.2); Sodium Level 136 mmol/L (136-145)
--- NOTE | 2022-03-29 08:18 | PCM.PN.INT ---
Assessment & Plan Assessment/Plan (1) Sepsis: PLAN: Plan RECOMMENDATIONS: 1. Continue diuresis following potassium repletion 2. Likely okay to complete 7 days of total antibiotics 3. Wean supplemental oxygen as tolerated 4. Continue scheduled bronchodilators. Continue to hold steroids 5. Not opposed to discharging patient on supplemental oxygen if necessary. Will evaluate as an outpatient 6. Continue lactulose and rifaximin. 7. Walking oximetry ordered IMPRESSIONS: 1. Sepsis The patient appears to be becoming septic with probable urinary tract source of infection with acute sepsis related organ dysfunction as evidenced by hyperbilirubinemia. The patient has a normal ejection fraction on echo along with an albumin of 2.9. Patient's blood pressures have been stable for over 24 hours. Patient should complete a total of 7 days of antibiotics 2. Acute right femoral neck fracture The patient is POD #6 status post right hip hemiarthroplasty. Continue routine postoperative management per orthopedic surgery. 3. Questionable history of COPD/chronic tobacco dependency The patient has a longstanding tobacco abuse history along with a questionable COPD diagnosis. No wheezing noted on exam. We will continue with bronchodilators, but discontinue steroids. Steroids can decrease wound healing. Oxygen has improved a little bit over the last 24 hours. Low clinical suspicion that this would be secondary to steroid removal as these would still be effective 24 to 48 hours afterwards. Continue with diuresis. Chest x-ray does not show pleural effusion. Abdominal distention is improved. Will obtain a walking oximetry. Patient could be discharged with supplemental oxygen if able to tolerate ambulation on 6 L or less with outpatient follow-up 4. Chronic alcohol dependency with liver cirrhosis The patient has a known history of chronic alcohol dependency with associated liver disease. He does have a history of prior GI bleeds. Therefore, agree with continuing PPI therapy. In light of his ongoing alcohol dependency, recommend initiation of the alcohol withdrawal protocol. Thrombocytopenia likely secondary to liver cirrhosis also. 5. Hypertension/GERD/chronic pain/neurogenic bladder Complicates care, management, recovery and prognosis. Hold home antihypertensives for now. 6. Acute hypoxic respiratory insufficiency Encourage incentive spirometer. Will order diuresis for this evening. Continue ambulation as tolerated. No significant ascites was noted on ultrasound. This could be done as an outpatient. This note was generated with [employer] software. It may contain incorrect words, spelling, and punctuation that were not noted in checking the note before signing. Subjective Subjective Patient did okay overnight. No acute issues were reported. Patient still requiring supplemental oxygen. Patient did receive an enema resulting in a large bowel movement and subjective improvement in abdominal distention Objective Data Objective Data Vital Signs: Vital Signs Temp Pulse Resp BP Pulse Ox FiO2 37.1 C 98 18 121/64 H 94 94 03/29/22 02:43 03/29/22 06:59 03/29/22 02:43 03/29/22 02:43 03/29/22 02:43 03/27/22 10:28 Oxygen Flow Rate (L/min) 3.5 Oxygen Delivery Method Nasal Cannula Weight: 83.3 kg Body Mass Index (BMI) 24.7 Intake & Output: Intake and Output for Last 24 Hours 03/27/22 03/28/22 03/29/22 23:59 23:59 23:59 Intake Total 1730 / 1730 1808.75 / 1808.75 0 / 0 Output Total 1974 / 1974 1725 / 2825 1625 / 1625 Balance -245 / -245 83.75 / -1016.25 -1625 / -1625 Lab / Micro Data Attestation: I reviewed the patient's lab results. Result Diagrams: 03/29/22 06:05 03/29/22 06:05 Labs: Laboratory Results - last 24 hr 03/28/22 06:35: Magnesium 2.0 03/29/22 06:05: WBC 3.0 L, RBC 2.95 L, Hgb 10.2 L, Hct 30.0 L, MCV 101.7 H, MCH 34.6 H, MCHC 34.0, RDW Std Deviation 53.8 H, RDW Coeff of Jose 14.4, Plt Count 124 L, MPV 9.2, Immature Gran % (Auto) 0.300, Neut % (Auto) 77.5 H, Lymph % (Auto) 6.6 L, [place] % (Auto) 9.9, Eos % (Auto) 5.0, Baso % (Auto) 0.7, Absolute Neuts (auto) 2.4, Absolute Lymphs (auto) 0.20 L, Nucleated RBC % 0, Differential Comment SCANNED, Diff Path Review February03/29/22 06:05: Sodium 136, Potassium 3.2 L, Chloride 105, Carbon Dioxide 25.0, Anion Gap 6, BUN 7, Creatinine 0.56 L, Estim Creat Clear Calc 136.77, Est GFR (MDRD) Af Amer 192, Est GFR (MDRD) Non-Af 159, BUN/Creatinine Ratio 12.6, Glucose 101, Calcium 8.3 L, Total Bilirubin 1.30 H, AST 69 H, ALT 56, Alkaline Phosphatase 108, Total Protein 6.1 L, Albumin 2.0 L, Globulin 4.1, Albumin/Globulin Ratio 0.5 L Micro: Microbiology 03/24/22 00:36 Blood Culture (Wb) - Left Forearm Blood Culture - Final No growth in 5 days. 03/24/22 00:31 Blood Culture (Wb) - Anticubital Left Blood Culture - Final No growth in 5 days. 03/28/22 20:59 Nasal Secretion SARS-CoV-2 Antigen (Rapid) - Final 03/24/22 22:00 Sputum, Expectorated/Coughed Gram Stain - Final 03/24/22 22:00 Sputum, Expectorated/Coughed Respiratory Culture - Final Presumptive C albicans 03/24/22 00:29 Urine Catheter - Catheter Urine Culture - Final Escherichia coli 03/24/22 08:45 Mucosa - Nose Respiratory Panel (PCR) - Final Radiography Diagnostic Testing: Radiology Impression Abdomen X-Ray 03/28/22 09:17 IMPRESSION: Adynamic ileus. No pneumoperitoneum. Electronically Signed: Jaylon Nunez MD at 10:16 EDT , Abdomen/Pelvis CT 03/28/22 18:48 IMPRESSION: Findings suspicious for multifocal pneumonia such as Covid 19. Subsegmental densities in the right lower lobe, due to atelectasis, aspiration, or pneumonia. Cirrhosis with moderate splenomegaly and trace ascites. Moderate to large amount of retained stool in the distal colon and rectum. Mild to moderate diffuse colonic dilatation, due to ileus or developing distal colonic obstruction. Electronically Signed: Nnamdi Pena MD at 20:06 EDT , Rhythm Strip Rhythm Strip: Sinus Rhythm Physical Exam Const alert, oriented x3 and no apparent distress Constitutional Narrative: Appears older than stated age General Appearance: cooperative, ill appearing and frail HEENT normocephalic and head/scalp atraumatic Eyes PERRL, EOMs intact bilaterally and conjunctivae normal Neck supple General: trachea midline Chest inspection of chest normal Resp normal respiratory effort Effort and Inspection: tachypneic; Negative for actively coughing Auscultation: diminished lung sounds; Negative for rales, rhonchi or wheezes Cardio S1 normal heart sound, S2 normal heart sound, no murmurs, no rub and no gallops Rate: tachycardic GI GI Narrative: Abdominal distention appears to be significantly improved Inspection: abdominal distention Palpation: Negative for tender, guarding or rigid Extremity no clubbing, cyanosis or edema Skin no rashes or lesions noted Neuro CN's II-XII intact bilaterally and no focal motor deficits Psych cooperative and affect normal Mood & Affect: flat affect Charges/Coding Visit Charges Inpatient E&M: 48246 Subs Hosp L2
--- NOTE | 2022-03-29 09:08 | CASEMGMT ---
Discharge Organic Chemist Cam called. Pre-cert has been obtained. [place] let D/C Content Designer aware that patient has to be in the facility by 6:00pm or [place] can't take the patient today. CELY Diez has been notified. Isadora Gentile Discharge Organic Chemist
[2022-03-29] MEDS: Carbidopa/Levodopa 10/100 Tablet PO (09:25)
[2022-03-29] MEDS: Thiamine Hydrochloride 100 MG Tablet PO (09:25)
[2022-03-29] MEDS: Lactulose 20 GM/30 ML UDC 10 GM PO (09:25)
[2022-03-29] MEDS: rifAXIMin 550 MG Tablet PO (09:25)
[2022-03-29] MEDS: Folic Acid 1 MG Tablet PO (09:25)
[2022-03-29] MEDS: Pantoprazole Sodium 40 MG Tablet PO (09:25)
--- NOTE | 2022-03-29 09:33 | CASEMGMT ---
SW set up transportation for 2p. This is the latest as patient is getting some IV medication that takes awhile. SW notified patient of approval and transportation for 2. Patient asked if he could go home. SW told patient it is recommended he go to rehab due to the oxygen and he is weaker than what he originally was after surgery. Patient was in agreement. SW will get orders faxed once completed. Patient does not need another COVID test as he had one last night at 8p. Plan: d/c to [facility]. Chary Pires BILLET SHEARERLucas YUEN
[2022-03-29] MEDS: Calcium Carbonate 500 MG Tablet PO ×2 (09:35→13:21)
[2022-03-29] MEDS: Gabapentin 300 MG Capsule PO (09:35)
[2022-03-29] MEDS: Ceftriaxone 1 GM/50 ML BAG IV (09:36)
[2022-03-29] MEDS: Furosemide 40 MG/4 ML Vial IV (09:39)
[2022-03-29] MEDS: Polyethylene Glycol 3350 17 GM PACKET PO (09:39)
[2022-03-29] MEDS: Potassium Chloride 10mEq/100mL 10 MEQ/100 ML IV.SOLN. 100 MEQ IV BOLUS ×2 (09:53→11:36)
--- NOTE | 2022-03-29 10:44 | DCINST_ITS ---
Discharge Instructions Diet Discharge Diet: 2000 mg Sodium Diet and - (advance diet to full liquid and then to regular consistency if able to tolerate. ) Activity Discharge Activity: Return to Normal Activity Follow Up Care Test Results: Test results from this visit will be discussed in further detail at your follow- up appointment, if applicable. Discharge Plan Admission Admit Date/Time: 03/23/22 05:22 Primary Reason for Your Visit: Right hip replacement/sepsis/UTI Attending Provider: Marlene Mendez Primary Care Provider: Megan Mai Consulting Providers: Carli Connelly ; Cameron Solo ; Abisai Alfaro ; Nahum Fernández ; Dalila Rowan NP ; Mauro Hilario ; Kaiden Ward Discharge Orders/Prescriptions Prescriptions: New polyethylene glycol 3350 17 gram Powder In Packet 17 g PO DAILY Qty: 0 0RF sennosides-docusate sodium [Stool Softener-Stimulant Laxat] 8.6-50 mg Tablet 2 tab PO BID PRN PRN (Reason: Constipation) 30 Days Qty: 0 0RF Xifaxan 550 mg Tablet 550 mg PO BID Qty: 0 0RF cefdinir 300 mg capsule 300 mg PO BID 4 Days Qty: 8 0RF Continued potassium chloride [Klor-Con M20] 20 mEq tablet,ER particles/crystals 20 meq PO QDAY ferrous sulfate 325 mg (65 mg iron) tablet,delayed release (DR/EC) [address] QHS pantoprazole DR 40 mg granules delayed-release for susp in packet [address] for susp in packet 40 mg PO QDAY pramipexole 0.125 mg tablet 0.125 mg PO QHS diltiazem HCl 240 mg capsule,extended release 24hr 240 mg PO QHS albuterol 90 mcg/actuation aerosol inhaler 90 mcg/actuation aerosol 90 mcg INHALATION Q4H PRN PRN (Reason: sob) metronidazole 0.75 % gel 1 applic TOPICAL Q12H cholecalciferol (vitamin D3) 1,000 UNIT tablet 1,000 unit PO QHS gabapentin 300 mg capsule 300 cap PO BID Label Comments: TAKE 1 CAPSULE TWICE DAILY FOR 30 DAYS Xtampza ER 9 mg cap,sprinkl,ER12hr(DONT CRUSH) 9 mg PO BID Label Comments: TAKE 1 CAPSULE BY MOUTH TWICE DAILY FOR 28 DAYS levocetirizine [Xyzal] 5 mg Tablet 5 mg PO DAILY carbidopa-levodopa 10-100 mg Tablet 2 tab PO DAILY Discontinued lisinopril 5 MG tablet 5 mg PO QHS Referrals / Follow Up: Megan Mai DO [Primary Care Provider] - Within 1 Week Disposition Disposition (needs filled in before D/C Order can be placed): Home, Self Care
--- NOTE | 2022-03-29 10:55 | PCM.DC.SUM ---
Providers Date of Admission: 03/23/22 Date of Discharge: 03/29/22 Primary Care Physician: Dr. Megan Mai, DO Consultations 03/23/22 05:34 Consult: Orthopedics Routine Consulting Provider: Mauro Hilario Reason for Consult: R hip fracture EMERGENT Consult: No Notified: Yes Date Notified: 03/23/22 Time Notified: 07:55 Method of Notification: Verbal Method of Consult:: In-Person Comments:: dr brea notified earlier- called to give orders 03/24/22 07:03 Consult: Multigraph Operator / Pulmonary Medicine Routine Consulting Provider: Pulmonary Medicine [facility] Reason for Consult: Sepsis EMERGENT Consult: Yes MD Notified: Yes Date Notified: 03/24/22 Time Notified: 07:03 Method of Notification: Verbal Method of Consult:: In-Person 03/28/22 15:11 Consult: General Surgery Routine Consulting Provider: Kaiden Ward Reason for Consult: Ileus EMERGENT Consult: No MD Notified: Yes Date Notified: 03/28/22 Time Notified: 15:11 Method of Notification: Verbal Reason For Visit: R HIP FRACTURE Diagnosis Discharge Diagnosis (1) Sepsis: Status: Acute Code(s): A41.9 - Sepsis, unspecified organism Medications at Discharge Home Medications albuterol 90 mcg/actuation aerosol inhaler 90 mcg inhalation Q4H PRN PRN sob 10/29/17 diltiazem HCl 240 mg capsule,extended release 24 hr 240 mg PO QHS BLOOD PRESSURE 10/29/17 ferrous sulfate 325 mg (65 mg iron) tablet,delayed release 325 mg PO QHS REPLACMENT 10/29/17 metronidazole 0.75 % topical gel 1 applic topical Q12H PSORIASIS 10/29/17 pantoprazole 40 mg granules delayed-release for susp in packet 40 mg PO QDAY HEARTBURN 10/29/17 potassium chloride 20 mEq tablet,extended release(part/cryst) (Klor-Con M) 20 meq PO QDAY 10/29/17 pramipexole 0.125 mg tablet 0.125 mg PO QHS RESTLESS LEGS 10/29/17 cholecalciferol (vitamin D3) 25 mcg (1,000 unit) tablet 1,000 unit PO QHS REPLACEMENT 04/22/19 carbidopa 10 mg-levodopa 100 mg tablet 2 tab PO DAILY restless legs 03/23/22 gabapentin 300 mg capsule 300 cap PO BID CHRONIC PAIN 03/23/22 levocetirizine 5 mg tablet (Xyzal) 5 mg PO DAILY ALLERGIES 03/23/22 oxycodone myristate 9 mg capsule sprinkle extended release 12 hr(DON'T CRUSH) (Xtampza ER) 9 mg PO BID CHRONIC RT LEG PAIN 03/23/22 cefdinir 300 mg capsule 300 mg PO BID 4 days #8 caps 03/29/22 polyethylene glycol 3350 17 gram oral powder packet 17 g PO DAILY #0 ea 03/29/22 rifaximin 550 mg tablet (Xifaxan) 550 mg PO BID #0 tabs 03/29/22 sennosides 8.6 mg-docusate sodium 50 mg tablet (Stool Softener-Stimulant Laxative) 2 tab PO BID PRN PRN Constipation 30 days #0 tabs 03/29/22 Hospital Course Operations total hip replacement (right) Procedures 2-D Echocardiogram Summary of Care Provided Minutes Spent on Discharge: 45 Hospital Course: 61-year-old male with past medical history of 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 Patient stated that he tripped over a rug whilst going to the bathroom. He landed on his right side with immediate pain in his right hip and thigh. He tried to tough it out throughout the day (tenderness became persistent. In the emergency room, he was found to have an acute displaced fracture of the right femoral neck. There was gaseous distention of the tissue above the lower abdomen. Patient was admitted to [facility] floor and orthopedics was consulted from the ED. Patient underwent right hemiarthroplasty on 03/23/2022. In the early postop period, patient developed severe fever with hypoxia with a T-max of 103F. Patient was started on empiric antibiotics and oxygen and transferred to the ICU. Patient had stated allergy to Tylenol with hives and Tylenol could not be used. Toradol and cooling blankets were used. It was felt that the source of the patient's infection was from his urine as he intermittently self catheterizes. His urine cultures grew E. coli that was pansensitive. He initially was on vancomycin and Zosyn that was changed to IV ceftriaxone. Patient was transferred out of the ICU after couple of days. On the PCU, he was found to have abdominal distention. Abdominal ultrasound was negative for ascitic fluid but showed hepatosplenomegaly. Patient also had small and large bowel distention. Patient was managed conservatively. General surgery was consulted. CT abdomen pelvis showed patient. Patient received antiemetics with good effect. Patient was advanced to clear liquid diet at discharge. He would continue to advance his diet as tolerated. He would need to resume back on apixaban. He was on 3 L of oxygen at discharge. Chest x-ray had been negative for any acute cardiopulmonary process except for atelectasis. Physical Exam Narrative Physical exam: General: Alert, Oriented x3, Cooperative, on 4 L of oxygen HEENT: Atraumatic Oral: Moist Mucosa Neck: Supple Lungs: Diminished to auscultation at the lung bases Cardiovascular: HS I+II, regular, no murmurs Abdomen: Distended abdomen, Bowel Sounds Present, Soft, Non Tender Extremities: No edema, right hip fracture dressing intact, no erythema around the wound Neurological: Grossly intact Psych/Mental Status: Appropriate Weight / BMI Weight Weight: 83.3 kg Body Mass Index (BMI) 24.7 ABG / Lab / Microbiology Data Result Diagrams: 03/29/22 06:05 03/29/22 06:05 Laboratory: Laboratory Results - last 24 hr 03/29/22 06:05: WBC 3.0 L, RBC 2.95 L, Hgb 10.2 L, Hct 30.0 L, MCV 101.7 H, MCH 34.6 H, MCHC 34.0, RDW Std Deviation 53.8 H, RDW Coeff of Jose 14.4, Plt Count 124 L, MPV 9.2, Immature Gran % (Auto) 0.300, Neut % (Auto) 77.5 H, Lymph % (Auto) 6.6 L, [place] % (Auto) 9.9, Eos % (Auto) 5.0, Baso % (Auto) 0.7, Absolute Neuts (auto) 2.4, Absolute Lymphs (auto) 0.20 L, Nucleated RBC % 0, Differential Comment SCANNED, Diff Path Review February03/29/22 06:05: Sodium 136, Potassium 3.2 L, Chloride 105, Carbon Dioxide 25.0, Anion Gap 6, BUN 7, Creatinine 0.56 L, Estim Creat Clear Calc 136.77, Est GFR (MDRD) Af Amer 192, Est GFR (MDRD) Non-Af 159, BUN/Creatinine Ratio 12.6, Glucose 101, Calcium 8.3 L, Total Bilirubin 1.30 H, AST 69 H, ALT 56, Alkaline Phosphatase 108, Total Protein 6.1 L, Albumin 2.0 L, Globulin 4.1, Albumin/Globulin Ratio 0.5 L Microbiology: Microbiology 03/24/22 00:36 Blood Culture (Wb) - Left Forearm Blood Culture - Final No growth in 5 days. 03/24/22 00:31 Blood Culture (Wb) - Anticubital Left Blood Culture - Final No growth in 5 days. 03/28/22 20:59 Nasal Secretion SARS-CoV-2 Antigen (Rapid) - Final 03/24/22 22:00 Sputum, Expectorated/Coughed Gram Stain - Final 03/24/22 22:00 Sputum, Expectorated/Coughed Respiratory Culture - Final Presumptive C albicans 03/24/22 00:29 Urine Catheter - Catheter Urine Culture - Final Escherichia coli 03/24/22 08:45 Mucosa - Nose Respiratory Panel (PCR) - Final Radiography Diagnostic Testing: Radiology Impression Abdomen/Pelvis CT 03/28/22 18:48 IMPRESSION: Findings suspicious for multifocal pneumonia such as Covid 19. Subsegmental densities in the right lower lobe, due to atelectasis, aspiration, or pneumonia. Cirrhosis with moderate splenomegaly and trace ascites. Moderate to large amount of retained stool in the distal colon and rectum. Mild to moderate diffuse colonic dilatation, due to ileus or developing distal colonic obstruction. Electronically Signed: Nnamdi Pena MD at 20:06 EDT , D/C Instructions Discharge Diet: 2000 mg Sodium Diet and - (advance diet to full liquid and then to regular consistency if able to tolerate. ) Meaningful Use Info Meaningful Use Diagnoses (Choose all that apply): None applicable Discharge Plan Admission Admit Date/Time: 03/23/22 05:22 Primary Reason for Your Visit: Right hip replacement/sepsis/UTI Attending Provider: Marlene Mendez Primary Care Provider: Megan Mai Consulting Providers: Carli Connelly ; Cameron Solo ; Abisai Alfaro ; Nahum Fernández ; Dalila Rowan SUPERVISOR PROCESS TESTING ; Mauro Hilario ; Kaiden Ward Discharge Orders/Prescriptions Prescriptions: New polyethylene glycol 3350 17 gram Powder In Packet 17 g PO DAILY Qty: 0 0RF sennosides-docusate sodium [Stool Softener-Stimulant Laxat] 8.6-50 mg Tablet 2 tab PO BID PRN PRN (Reason: Constipation) 30 Days Qty: 0 0RF Xifaxan 550 mg Tablet 550 mg PO BID Qty: 0 0RF cefdinir 300 mg capsule 300 mg PO BID 4 Days Qty: 8 0RF Continued potassium chloride [Klor-Con M20] 20 mEq tablet,ER particles/crystals 20 meq PO QDAY ferrous sulfate 325 mg (65 mg iron) tablet,delayed release (DR/EC) 325 mg PO QHS pantoprazole DR 40 mg granules delayed-release for susp in packet [address] for susp in packet 40 mg PO QDAY pramipexole 0.125 mg tablet 0.125 mg PO QHS diltiazem HCl 240 mg capsule,extended release 24hr 240 mg PO QHS albuterol 90 mcg/actuation aerosol inhaler 90 mcg/actuation aerosol 90 mcg INHALATION Q4H PRN PRN (Reason: sob) metronidazole 0.75 % gel 1 applic TOPICAL Q12H cholecalciferol (vitamin D3) 1,000 UNIT tablet 1,000 unit PO QHS gabapentin 300 mg capsule 300 cap PO BID Label Comments: TAKE 1 CAPSULE TWICE DAILY FOR 30 DAYS Xtampza ER 9 mg cap,sprinkl,ER12hr(DONT CRUSH) 9 mg PO BID Label Comments: TAKE 1 CAPSULE BY MOUTH TWICE DAILY FOR 28 DAYS levocetirizine [Xyzal] 5 mg Tablet 5 mg PO DAILY carbidopa-levodopa 10-100 mg Tablet 2 tab PO DAILY Discontinued lisinopril 5 MG tablet 5 mg PO QHS Referrals / Follow Up: Megan Mai DO [Primary Care Provider] - Within 1 Week Disposition Disposition (needs filled in before D/C Order can be placed): Inpatient Rehab Unit/Facility Charges/Coding Visit Charges Inpatient E&M: 45664 Disch Hosp
--- NOTE | 2022-03-29 11:33 | CASEMGMT ---
CELY faxed orders and negative COVID test to [facility]. Transport was arranged for 2p via wheelchair by [facility]. Plan: d/c to [facility]. Chary YUEN
--- NOTE | 2022-03-29 11:36 | PN.ORTHO_ITS ---
Subjective Subjective Doing well pain controlled no hip complaints Objective Data Objective Data Vital Signs: Vital Signs Temp Pulse Resp BP Pulse Ox FiO2 98.2 F 88 20 H 123/86 H 86 94 03/29/22 08:42 03/29/22 10:58 03/29/22 10:58 03/29/22 08:42 03/29/22 08:59 03/27/22 10:28 Oxygen Flow Rate (L/min) [ 5 AMBULATING with Oxygen #3] Oxygen Flow Rate (L/min) [ 4 AMBULATING with Oxygen #2] Oxygen Flow Rate (L/min) [ 3 AMBULATING with Oxygen #1] Oxygen Flow Rate (L/min) [At 3 REST with Oxygen] Oxygen Flow Rate (L/min) 3 Oxygen Delivery Method Nasal Cannula Weight: 183 lb 10.321 oz Body Mass Index (BMI) 24.7 Intake & Output: Intake and Output for Last 24 Hours 03/27/22 03/28/22 03/29/22 23:59 23:59 23:59 Intake Total 1730 / 1730 1808.75 / 1808.75 922.5 / 922.5 Output Total 1974 / 1974 1725 / 2825 1625 / 1625 Balance -245 / -245 83.75 / -1016.25 -702.5 / -702.5 Lab / Micro Data Result Diagrams: 03/29/22 06:05 03/29/22 06:05 Labs: Laboratory Results - last 24 hr 03/29/22 06:05: WBC 3.0 L, RBC 2.95 L, Hgb 10.2 L, Hct 30.0 L, MCV 101.7 H, MCH 34.6 H, MCHC 34.0, RDW Std Deviation 53.8 H, RDW Coeff of Jose 14.4, Plt Count 124 L, MPV 9.2, Immature Gran % (Auto) 0.300, Neut % (Auto) 77.5 H, Lymph % (Auto) 6.6 L, [place] % (Auto) 9.9, Eos % (Auto) 5.0, Baso % (Auto) 0.7, Absolute Neuts (auto) 2.4, Absolute Lymphs (auto) 0.20 L, Nucleated RBC % 0, Differential Comment SCANNED, Diff Path Review February03/29/22 06:05: Sodium 136, Potassium 3.2 L, Chloride 105, Carbon Dioxide 25.0, Anion Gap 6, BUN 7, Creatinine 0.56 L, Estim Creat Clear Calc 136.77, Est GFR (MDRD) Af Amer 192, Est GFR (MDRD) Non-Af 159, BUN/Creatinine Ratio 12.6, Glucose 101, Calcium 8.3 L, Total Bilirubin 1.30 H, AST 69 H, ALT 56, Alkaline Phosphatase 108, Total Protein 6.1 L, Albumin 2.0 L, Globulin 4.1, Albumin/Globulin Ratio 0.5 L Micro: Microbiology 03/24/22 00:36 Blood Culture (Wb) - Left Forearm Blood Culture - Final No growth in 5 days. 03/24/22 00:31 Blood Culture (Wb) - Anticubital Left Blood Culture - Final No growth in 5 days. 03/28/22 20:59 Nasal Secretion SARS-CoV-2 Antigen (Rapid) - Final 03/24/22 22:00 Sputum, Expectorated/Coughed Gram Stain - Final 03/24/22 22:00 Sputum, Expectorated/Coughed Respiratory Culture - Final Presumptive C albicans 03/24/22 00:29 Urine Catheter - Catheter Urine Culture - Final Escherichia coli 03/24/22 08:45 Mucosa - Nose Respiratory Panel (PCR) - Final Radiography Diagnostic Testing: Radiology Impression Abdomen/Pelvis CT 03/28/22 18:48 IMPRESSION: Findings suspicious for multifocal pneumonia such as Covid 19. Subsegmental densities in the right lower lobe, due to atelectasis, aspiration, or pneumonia. Cirrhosis with moderate splenomegaly and trace ascites. Moderate to large amount of retained stool in the distal colon and rectum. Mild to moderate diffuse colonic dilatation, due to ileus or developing distal colonic obstruction. Electronically Signed: Nnamdi Pena MD at 20:06 EDT , Rhythm Strip Rhythm Strip: Sinus Rhythm Physical Exam Const alert, oriented x3 and no apparent distress Extremity Extremity Narrative: Right hip dressing removed dry drainage on Mepilex no signs of infection mild low intensity erythema anterior to this consistent with swelling induration from surgery no concern for infection remains neurovascular intact Assessment & Plan Assessment/Plan (1) Closed right hip fracture: PLAN: Plan Dressing removed today no signs or concern for infection start daily dressing changes clean incision daily with antibacterial soap and warm water follow-up in the office 2 weeks postop will try to arrange AFO when patient comes to office if he can get AFO while in [place] that would be useful.
[2022-03-29 12:05] LABS: Pathologist Review Reviewed
[2022-03-29 12:06] LABS: Pathologist Review Reviewed
[2022-03-29] MEDS: Potassium Chloride Oral Tablet 20 MEQ PO (13:17)
--- NOTE | 2022-03-29 13:23 | CASEMGMT ---
CELY spoke with Dr Hilario and he would like for patient to have a PFO for foot drop. CELY told him SW will check on this with Cam. CELY called [facility] and she will talk with her therapists. However, if they are not able to get this for patient Dr Hilario said he can arrange for one at his office visit. Chary Pires MSW [facility]
== END 2022-03-29 13:51 | DRG 521 ==
LOC: MS3 13:47 → ICU 03-24 07:02 → MS3 03-25 12:15 → ICU 03-25 12:17 → PCU 03-25 18:28
PROVIDERS: Anesthesiology; Internal Medicine Critical Care Medicine; Orthopaedic Surgery; Admitting Provider Internal Medicine; PCP Family Medicine; Visit Provider Internal Medicine
PROC: 0SRR0JZ Replacement of Right Hip Joint, Femoral Surface with Synthetic Substitute, Open Approach (ICD-10-PCS; CPT 27125; principal; 2022-03-23 10:00)
DX: S72.001A Fracture of unspecified part of neck of right femur, initial encounter for closed fracture (principal); A41.51 Sepsis due to Escherichia coli [E. coli]; J96.01 Acute respiratory failure with hypoxia; K56.0 Paralytic ileus; J44.1 Chronic obstructive pulmonary disease with (acute) exacerbation; N39.0 Urinary tract infection, site not specified; K70.31 Alcoholic cirrhosis of liver with ascites; I95.9 Hypotension, unspecified; F10.20 Alcohol dependence, uncomplicated; E55.9 Vitamin D deficiency, unspecified; M19.90 Unspecified osteoarthritis, unspecified site; M54.16 Radiculopathy, lumbar region; I10 Essential (primary) hypertension; L71.9 Rosacea, unspecified; K21.9 Gastro-esophageal reflux disease without esophagitis; F17.210 Nicotine dependence, cigarettes, uncomplicated; L40.9 Psoriasis, unspecified; M48.061 Spinal stenosis, lumbar region without neurogenic claudication; G25.81 Restless legs syndrome; E87.6 Hypokalemia; M21.371 Foot drop, right foot; W01.0XXA Fall on same level from slipping, tripping and stumbling without subsequent striking against object, initial encounter; T40.605A Adverse effect of unspecified narcotics, initial encounter; N31.9 Neuromuscular dysfunction of bladder, unspecified; G89.29 Other chronic pain; Z96.641 Presence of right artificial hip joint
CPT/HCPCS: 36415; 71045; 73502; 74018; 74019; 74177; 76705; 80048; 80053; 80076; 80202; 81001; 82306; 83605; 83735; 84100; 85025; 85610; 85730; 86850; 86900; 86901; 87040; 87070; 87077; 87086; 87088; 87186; 87205; 87426; 87633; 87641; 88305; 88311; 88341; 88342; 93005; 93306; 94640; 97110; 97116; 97162; 97166; 97530; 97535; 99251; 99406; C1776; J2185; J7030; J7050; J7120; Q9957; Q9967; A4216; C8929; G0463; J1940; J2405; J3490

== ENCOUNTER → 2022-05-27 | Outpatient (CLI) | payer MEDICARE, SELFPAY ==
[2022-05-27 13:58] LABS: Amphetamine Urine VISTA NEGATIVE (<1000 ng/mL); Barbiturate Urine VISTA NEGATIVE (< 200 ng/mL); Benzodiazepine Urine VISTA NEGATIVE (< 200 ng/mL); Cocaine Urine VISTA NEGATIVE (< 300 ng/mL); Ecstacy Urine VISTA NEGATIVE (< 500 ng/mL); Methadone Urine VISTA NEGATIVE (< 300 ng/mL); PCP Urine VISTA NEGATIVE (< 25 ng/mL); THC Urine VISTA NEGATIVE (< 50 ng/mL); Vista UDS pH Range 6
== END | disposition home or self-care (01) ==
LOC: LAB 12:51
PROVIDERS: PCP Family Medicine; Visit Provider Anesthesiology Pain Medicine
DX: F11.20 Opioid dependence, uncomplicated (principal)
CPT/HCPCS: 80307

== ENCOUNTER → 2023-01-06 | Outpatient (CLI) | payer MEDICARE, SELFPAY ==
[2023-01-06 13:51] LABS: Amphetamine Urine VISTA NEGATIVE (<1000 ng/mL); Barbiturate Urine VISTA NEGATIVE (< 200 ng/mL); Benzodiazepine Urine VISTA NEGATIVE (< 200 ng/mL); Cocaine Urine VISTA NEGATIVE (< 300 ng/mL); Ecstacy Urine VISTA NEGATIVE (< 500 ng/mL); Methadone Urine VISTA NEGATIVE (< 300 ng/mL); PCP Urine VISTA NEGATIVE (< 25 ng/mL); THC Urine VISTA NEGATIVE (< 50 ng/mL); Vista UDS pH Range 8
== END | disposition home or self-care (01) ==
PROVIDERS: PCP Family Medicine; Referring Provider Anesthesiology Pain Medicine; Visit Provider Anesthesiology Pain Medicine
DX: F11.20 Opioid dependence, uncomplicated (principal)
CPT/HCPCS: 80307